=== PATIENT | female | born 1990 | race Caucasian/White ===

== ENCOUNTER 2019-07-03 12:50 | Day surgery (SDC) | payer SELFPAY ==
[2019-06-30 18:06] VITALS: BMI 22.3
[2019-06-30 18:10] VITALS: BMI 22.3
[2019-07-03] VITALS (8 sets, daily range): BP systolic 110–136; BP diastolic 62–84; PULSE 86–109; RESP 10–20; TEMP 36.3–36.9; O2SAT 95–100
[2019-07-03 13:21] LABS: OR HCG Qualitative Urine Negative (Negative)
[2019-07-03] MEDS: sodium chloride 0.9% 1,000 ML 30 ML IV (13:29)
--- NOTE | 2019-07-03 13:34 | ANES.PREANES ---
Pre-Anesthetic Assessment Pre-Anesthetic Assessment: Height/Weight: Height 1.8 m Weight 72.575 kg Temp Resp BP Pulse Ox 98.2 F 18 110/62 100 07/03/19 13:19 07/03/19 13:19 07/03/19 13:19 07/03/19 13:19 Proposed Procedure: Operation Date: 07/03/19 14:20 Proposed Procedures p Laparoscopic Cholecystectomy Poss Open(Not Applicable) - Caesar Li MD Familial anesthetic complications: None Was Beta Taty taken within 24 hours: N/A Last intake: Intake Last Liquid Date 07/02/19 Last Liquid Time 23:00 Last Solid Date 07/02/19 Last Solid Time 23:00 Social: Social History: Tobacco (1 ppd) and No alcohol Exam: Pre-Anes Outpt Exam: alert, oriented x 3, clear to auscultation bilaterally and regular rate & rhythm Airway: Submandibular: WNL Cervical ROM: WNL MP: 1 Dentition: Chipped (multiple chipped) Pulmonary: Pulmonary: URI (cold last week) CV/HEM: CV/HEM: None reported : : None reported Hepatic: Hepatic: None reported GI: GI: GERD Metabolic: Metabolic: None reported Musc/skel: Musc/skel: Scoliosis Neuropsych: Neuropsych: None reported Anesthetic Plan: ASA status: II Anesthesia: General Risk of > 500 ml blood loss (7ml/kg in children): No Meds/Allergies Current Medications: Current Medications Generic Name Dose Route Start Last Admin Trade Name Freq PRN Reason Stop Dose Admin Sodium Chloride 1,000 mls @ 30 ml s/hr 07/03/19 12:45 07/03/19 13:29 Sodium Chloride 0.9% IV 30 mls/hr .Q24H VICTOR HUGO Administration Data Anesthesia Labs: Other Labs: Laboratory Results - last 48 hr 07/03/19 13:18 Urine HCG, Qual Negative Cardiac Studies: No Data to Display
[2019-07-03] MEDS: clindamycin 600 MG/50 ML PREMIX 100 MG IV (14:55)
[2019-07-03] MEDS: lidocaine 2% INJ 20 mL INJECTION (15:00)
--- NOTE | 2019-07-03 15:50 | PM.OP ---
Operative Report Post-Operative Note: Date of procedure: 07/04/19 Preop Diagnosis: Symptomatic cholelithiasis Post-op diagnosis: same Post-op Findings: Chronic calculus cholecystitis Procedure Done: Laparoscopic cholecystectomy Specimens removed/disposition: Gallbladder and contents Surgeon: Caesar Li Tool Turret Lathe Set Up Operator: Merlyn Alegria Anesthesia: general and other (MOUNA Maria) Estimated blood loss (mL): 5 Urine output (mL): 0 Condition: stable Disposition: same day Operative Report: Brief History: This is a pleasant 28 years old female patient presented as a referral to my office with symptomatic cholelithiasis. Plan of care; After thorough history physical examination and reviewing the chart ,I counseled the patient for laparoscopic cholecystectomy possible open, indications risks including but not limited injury to the common bile duct and other viscera.benefits and alternatives all discussed with the patient, and she did agree to proceed. All questions have been answered and all concerns have been addressed to patient's satisfaction. Informed consent per chart Procedure: Patient was identified in the holding area and taken back to the operative suite, placed in supine position intubated by anesthesia . Time-out was done verifying the patient's name/date of /planned procedure and destination after the procedure, all were in agreement. SCDs confirmed to be functioning, preoperative antibiotics administered per protocol, and beta pretty protocol was confirmed. Patient was appropriately secured to the table, footboard was applied to the OR table, before prep and drape anesthesia was asked to tilt the table back and forth to make sure that the patient is appropriately secured and she was. Prep and drape of the abdomen was done under the usual sterile technique, followed by that supraumbilical skin incision,skin incision was done by a 15 blade knife, and stay sutures were applied to the fascia and Harvey trocar technique was used to enter the abdominal without injuring any abdominal viscera, started by low flow gas insufflation followed by a high flow, started with a 10 mm laparoscope and under direct vision there was no evidence of any injuries, the scope then switched to a 30? ,10 millimeter scope and under direct visualization 5 millimeter trocar was inserted in the epigastric region followed by two 5 mm trocars were inserted in the right upper quadrant that was done after injection of local lidocaine 2% at all incision sites. Gallbladder showed chronic calculus cholecystitis &with adhesions Patient was then positioned in the head up and tilted to the left dissection started by taking adhesions down using [place] forceps with heat, continued dissection until I identified the critical view of the cystic duct and cystic artery where seen connected to the gallbladder. Clips were applied on the cystic duct towards the common bile duct 1 towards the gallbladder then divided is in sharp scissors, 2 clips were then applied onto the cystic artery and 1 towards the gallbladder and divided by sharp scissors, as the cystic duct stump was enlarged I elected to apply a loop PDS in addition to the surgical clip for extra security. Dissection was then carried along of the gallbladder from the gallbladder fossa using cautery as well as sharp dissection with heat energy. The gallbladder then was dissected out from the gallbladder fossa totally , cholecystectomy was then achieved and was placed in an Endo Catch bag and then retrieved from the Harvey trocar site under direct visualization using a 5 mm 30? scope through the epigastric trocar, specimen was then passed to the circulating nurse to go for permanent pathology,irrigation and hemostasis was done to the gallbladder fossa after hemostasis was secured, final survey laparoscopy was done that showed no injuries.Suction irrigation was obtained The supraumbilical fascial defect was then closed using interrupted Vicryl sutures using a fascial closure device ;Jose Antonio Serrano under direct visualization Gas was allowed to deflate,Trocars were then taken out under direct vision there was no evidence of bleeding Specimen was passed to the circulating nurse for permanent pathology. No drains were placed and the supraumbilical incision as well as all trocar sites were closed by by 4-0 Monocryl to approximate the skin edges of the supraumbilical incision, dressing was applied in the form of Dermabond and the patient patient got extubated and was taken to recovery area in a stable condition. Count of sponges, needles and instruments were completed at the end of the procedure I was present for the whole entire procedure. Coding Level of Care Code Acute River Captain for Sarah Walsh
--- NOTE | 2019-07-03 16:10 | SUR.PHASEI ---
1602 PATIENT TO PACU FROM OR AT THIS TIME [facility]IA [employer]. RR EVEN AND UNLABORED. PLACED ON SIMPLE MASK AT 8L. PATIENT RESPONSIVE TO VERBAL STIMULI. 4 STABS TO ABDOMEN, CDI, CLOSED WITH EXOFIN.
--- NOTE | 2019-07-03 16:31 | SUR.PHASEI ---
1622 PATIENT TO OPS VIA GURNEY. A/OX3. DROWSY. RR EVEN AND UNLABORED.
--- NOTE | 2019-07-25 16:11 | PM.HPUD ---
H&P update H&P Update: DATE OF SURGERY/PROCEDURE: 07/25/19 DATE H&P PERFORMED: 06/08/19 H&P UPDATE INFORMATION: H&P completed within last 30 days and No changes to prior documentation PREOP DIAGNOSIS: Symptomtic Cholelithiasis PLANNED PROCEDURE: Operation Date: 07/03/19 14:20 Proposed Procedures p Laparoscopic Cholecystectomy Poss Open(Not Applicable) - Caesar Li MD Full H&P Perinent History: Medical/Surgical History: Medical History (Updated 07/19/19 @ 00:00 by ) Liver laceration, grade II, with open wound into cavity (Acute) Conservative measures were successful H&H stable Plan to discharge patient home today with specific education materials given to the patient and instructions. Family History: Family History (Updated 07/13/19 @ 15:59 by Gemma Johnson RN) Denies family history of Anesthesia complication Bleeding disorder Social History: Social History Smoking and tobacco status: current every day smoker cigarettes Packs smoked per day: 1 Second hand smoke exposure: Yes Alcohol intake: never Adopted: No Caregiver/support person: Yes Lives independently: Yes Household members: family Housing: Apartment Marital status: Single Number of children: 1 Highest education level completed: High School Graduate service: No Current occupational status: employed Current occupation: [employer] Current occupational exposures/hazards: No Pets and animals: No History of recent travel: No Leisure activites: exercise Sexually active: Yes Current gender identity: Female Lakeisha/Congregational: Hindu Special lakeisha needs: No Agree to transfusion: No Financial difficulty paying for basics: Decline to Answer
== END 2019-07-03 17:05 | disposition home or self-care (01) ==
PROVIDERS: Visit Provider Surgery
PROC: 0FT44ZZ Resection of Gallbladder, Percutaneous Endoscopic Approach (ICD-10-PCS; CPT 47562; principal; 2019-07-03 14:10)
DX: K80.10 Calculus of gallbladder with chronic cholecystitis without obstruction (principal); F17.210 Nicotine dependence, cigarettes, uncomplicated; Z82.49 Family history of ischemic heart disease and other diseases of the circulatory system; Z83.3 Family history of diabetes mellitus
CPT/HCPCS: 47562; 12345; 84703; 88304; J1100; J1885; J2001; J2405; J2704; J2710; J3010; J3490; J7030

== ENCOUNTER 2019-07-04 01:35 | Inpatient (IN) | payer SELFPAY ==
[2019-07-04] VITALS (31 sets, daily range): BP systolic 89–142; BP diastolic 57–96; PULSE 83–142; RESP 15–47; TEMP 36.4–37.5; O2SAT 96–99; BMI 22.3
--- NOTE | 2019-07-04 01:44 | ED_ITS ---
Entered by Analilia Allan, acting as scribe for Karrie Lebron MD Jul 04, 2019 01:35 HPI - Abdominal Pain General: Chief Complaint: Nausea/Vomiting/Diarrhea Stated Complaint: POST GALLBLADDER SURGERY Time Seen by Provider: 07/04/19 01:37 Source: family and EMS Mode of arrival: EMS Limitations: no limitations History of Present Illness: HPI narrative: 28 yo f came to the er by ems for post surgery complications. Onset was yesterday. Pt states that she had her galbladder taken out 07/03/19 by . Pt since the surgery has been nausea and vomiting. Pt states that she is in alot of pain. MD elicited complaint: abdominal pain Onset (ago): day(s) (today) Pain Consistency: constant Location: LUQ, RUQ, RLQ and LLQ Severity: moderate Quality: other (pain) Radiation: none Migration to: no migration Exacerbating factors: nothing Relieving factors: nothing Associated Symptoms: Reports vomiting; Denies chills, diarrhea and fever(s) Related Data: Patient : No Review of Systems Const: Reports: fatigue; Denies: fever or chills Eyes: Denies: change in vision ENMT: Denies: throat pain or mouth pain Card: Denies: chest pain Resp: Denies: shortness of breath GI: Reports: abdominal pain and vomiting; Denies: diarrhea : Denies: difficulty urinating Musc: Denies: back pain or joint pain Skin/Breast: Denies: rash Neuro: Denies: headache Psych: Denies: depression Endo: Denies: excessive urination Travon/Lymph: Denies: easy bruising All/Imm: Denies: hives PFSH ED PFSH: Statuses (acute, chronic, etc) shown below reflect problem list status as previously entered and may not be historically accurate Medical History Liver laceration, grade II, with open wound into cavity (Acute) Social History Smoking and tobacco status: current every day smoker cigarettes Packs smoked per day: 1 Physical Exam Const: OTHER: in moderate distress, pale HENMT: COMMON NORMALS: normocephalic and external nose normal HEAD & SCALP: normocephalic NOSE: external nose normal and no nasal discharge (nasal dischage) Eye: COMMON NORMALS: PERRL PUPIL: Yes PERRL Neck/C-Spine: COMMON NORMALS: full ROM and no lymphadenopathy Chest: COMMONS NORMALS: inspection of chest normal Resp: COMMON NORMALS: normal respiratory effort and clear to auscultation bilaterally AUSCULTATION: clear to auscultation bilaterally Cardio: COMMON NORMALS: regular rhythm; negative for regular rate (tachycardic) RATE: abnormal rate (tachycardic) RHYTHM: regular rhythm GI: COMMON NORMALS: soft to palpation PALPATION: Yes soft Extremity: COMMON NORMALS: normal to inspection, full ROM and normal capillary refill Psych: COMMON NORMALS: mental status grossly normal and cooperative Skin: COMMON NORMALS: no rashes or lesions noted GENERAL SKIN EXAM: no rashes or lesions noted OTHER: pale Course Consultations: Consultation #1: came to see pt Time: 03:39 Vital Signs: Vital signs: Vital Signs Temperature 98.3 F 07/04/19 04:48 Pulse Rate 116 H 07/04/19 04:48 Respiratory Rate 19 H 07/04/19 04:48 Blood Pressure 118/72 07/04/19 04:33 Pulse Oximetry 98 07/04/19 04:48 MDM - Abdominal Pain MDM Narrative: Medical decision making narrative: Patient presents here with abdominal pain is found to have hematoma with a possible liver laceration. Patient's blood pressure and heart rate here of stabilized. Patient was given blood products in the ED. Spoke to Dr. Whitman who is came and saw the patient will admit to the ICU. Lab Data: Labs: Lab Results 07/04/19 07/04/19 07/04/19 Range/Units 02:15 02:15 02:15 WBC 22.6 H (4.0-10.0) 10^3/ uL RBC 2.48 L (4.1-5.3) 10^6/u L Hgb 7.6 L (11.5-15.3) g/dL Hct 24.1 L (37.0-47.0) % MCV 97.2 (81-99) fL MCH 30.6 (28.0-34.0) pg MCHC 31.5 (30.0-36.0) g/dL RDW 13.1 (12.1-15.1) % Plt Count 297 (130-400) 10^3/c mm MPV 10.3 (7.4-10.4) fL Neut % (Auto) 85.8 % Lymph % (Auto) 8.7 % Clayton % (Auto) 4.2 % Eos % (Auto) 0.0 % Baso % (Auto) 0.1 % Neut # (Auto) 19.4 H (1.8-7.7) 10^3/u L Lymph # (Auto) 2.0 (0.8-4.8) 10^3/u L Clayton # (Auto) 1.0 H (0.2-0.9) 10^3/u L Eos # (Auto) 0.0 (0.0-0.8) 10^3/u L Baso # (Auto) 0.0 (0.0-0.1) 10^3/u L Nucleated RBC % (a uto) 0 % Nucleated RBCs # 0.0 /100WBC PT 17.20 H (10.5-13.3) SECO NDS INR 1.35 H (0.8-1.2) Sodium 133 L (136-145) mmol/L Potassium 4.2 (3.5-5.1) mmol/L Chloride 101 (98-107) mmol/L Carbon Dioxide 16 L (22-29) mmol/L Anion Gap 20.2 H (5-19) BUN 13 (6-20) mg/dL Creatinine 1.3 H (0.5-0.9) mg/dL GFR Calculation 49.1 L (90-130) mL/min Glucose 324 H (74-109) mg/dL Calcium 8.0 L (8.6-10.0) mg/Dl Total Bilirubin 0.2 (0.15-1.2) mg/dL AST 28 (0-32) U/L ALT 102 H (0-33) U/L Alkaline Phosphata se 57 (35-105) IU/L Total Protein 4.8 L (6.6-8.7) g/dL Albumin 3.2 L (3.5-5.2) g/dL Globulin 1.6 (1.3-4.6) g/dL Lipase 7 L (13-60) U/L Blood Type Antibody Screen Crossmatch 07/04/19 Range/Units 02:55 WBC (4.0-10.0) 10^3/ uL RBC (4.1-5.3) 10^6/u L Hgb (11.5-15.3) g/dL Hct (37.0-47.0) % MCV (81-99) fL MCH (28.0-34.0) pg MCHC (30.0-36.0) g/dL RDW (12.1-15.1) % Plt Count (130-400) 10^3/c mm MPV (7.4-10.4) fL Neut % (Auto) % Lymph % (Auto) % Clayton % (Auto) % Eos % (Auto) % Baso % (Auto) % Neut # (Auto) (1.8-7.7) 10^3/u L Lymph # (Auto) (0.8-4.8) 10^3/u L Clayton # (Auto) (0.2-0.9) 10^3/u L Eos # (Auto) (0.0-0.8) 10^3/u L Baso # (Auto) (0.0-0.1) 10^3/u L Nucleated RBC % (a uto) % Nucleated RBCs # /100WBC PT (10.5-13.3) SECO NDS INR (0.8-1.2) Sodium (136-145) mmol/L Potassium (3.5-5.1) mmol/L Chloride (98-107) mmol/L Carbon Dioxide (22-29) mmol/L Anion Gap (5-19) BUN (6-20) mg/dL Creatinine (0.5-0.9) mg/dL GFR Calculation (90-130) mL/min Glucose (74-109) mg/dL Calcium (8.6-10.0) mg/Dl Total Bilirubin (0.15-1.2) mg/dL AST (0-32) U/L ALT (0-33) U/L Alkaline Phosphata se (35-105) IU/L Total Protein (6.6-8.7) g/dL Albumin (3.5-5.2) g/dL Globulin (1.3-4.6) g/dL Lipase (13-60) U/L Blood Type O Positive Antibody Screen Negative Crossmatch See Detail Imaging Data ^: CT Abd/Pel: Radiologist's impression: RE INFORMATION: Exam: CT Abdomen And Pelvis With Contrast Exam date and time: 07/04/2019 1:54 AM Age: 28 years old Clinical indication: Abdominal pain; Localized; Right upper quadrant (ruq); Prior surgery; Surgery date: Post-operative (0-2 days); Surgery type: Gb surgery <24hrs ago TECHNIQUE: Imaging protocol: Computed tomography of the abdomen and pelvis with intravenous contrast. Total DLP: 792.57 mGy-cm Radiation optimization: All CT scans at this facility use at least one of these dose optimization techniques: automated exposure control; mA and/or kV adjustment per patient size (includes targeted exams where dose is matched to clinical indication); or iterative reconstruction. Contrast material: OMNMI 300; Contrast volume: 95 ml; Contrast route: IV; COMPARISON: CT abdomen pelvis w con* [id number] 02/21/2015 10:17 PM FINDINGS: Liver: There is a wedge-shaped low density through the lower right hepatic lobe suspicious for laceration/posttraumatic defect. Gallbladder and bile ducts: Changes of cholecystectomy are noted. Relatively large hematoma suggested at the gallbladder fossa and relatively large free fluid likely representing hemorrhage noted through the abdomen. No evident contrast extravasation Pancreas: Normal. No ductal dilation. Spleen: Normal. No splenomegaly. Adrenals: Normal. No mass. Kidneys and ureters: Normal. No hydronephrosis. Stomach and bowel: Short-segment intussusception left upper quadrant small bowel. Moderate gastric fluid. Appendix: No evidence of appendicitis. Intraperitoneal space: Free intraperitoneal air can be seen as a normal finding in setting of recent surgery less than 24 hours ago. Vasculature: Unremarkable. No abdominal aortic aneurysm. Lymph nodes: Unremarkable. No enlarged lymph nodes. Bladder: Unremarkable as visualized. Reproductive: Unremarkable as visualized. Bones/joints: Unremarkable. No acute fracture. Soft tissues: Unremarkable. CT/CT abdomen pelvis w con* [id number] IMPRESSION: Prominent right upper quadrant hematoma in relatively large free fluid likely representing hemorrhage related fluid within the abdomen and pelvis. Findings are suspected to arise from grade 2 injury at the lower right hepatic tip. THIS REPORT CONTAINS FINDINGS THAT MAY BE CRITICAL TO PATIENT CARE. The findings were verbally communicated via telephone conference with Karrie Lebron at 3:08 AM ASSISTANT SPA MANAGER on 07/04/2019. The findings were acknowledged and understood. Critical Care Time Critical Care Time: Critical Care Time: Yes Total Critical Care Time: 36 Attestation: Critical care time is 36 minutes. Patient had a postop hemorrhage requiring blood products and rechecks of cardiac output and blood pressure. Consult was made to surgery Dr. Harding Discharge Plan Discharge Patient Disposition: Admitted As Inpatient Admit Provider: Caesar Li Clinical Impression: Liver laceration, grade II, with open wound into cavity Condition: Stable Coding Level of Care Code ED Cellophane Wrapping Examiner for Chg Fwd Exam Problem Focused The documentation recorded by the Jerrell gracia Stephanie Lyn, accurately reflects the service I personally performed and the decisions made by me, Karrie Lebron MD Jul 04, 2019 01:35
[2019-07-04] MEDS: sodium chloride 0.9% 1,000 ML 999 ML IV ×2 (01:53→02:07)
--- NOTE | 2019-07-04 01:54 | PC.NURSE ---
Pt presents with nausea, vomiting and diarrhea since this AM after galbladder surgery. Pt is also diaphoretic and is very lethargic. NAD, A&O x 4, patient is cooperative.
[2019-07-04] MEDS: ondansetron 2 mg/ML SDV 2 mL 4 MG IVP (02:26)
[2019-07-04] MEDS: iohexol 300 mg/mL 100 mL Btl IV (02:41)
[2019-07-04 02:52] LABS: Alanine Aminotransferase 102 U/L (0-33); Albumin Level 3.2 g/dL (3.5-5.2); Alkaline Phosphatase 57 IU/L (35-105); Anion Gap 20.2 (5-19); Aspartate Amino Transferase 28 U/L (0-32); Blood Urea Nitrogen 13 mg/dL (6-20); Carbon Dioxide 16 mmol/L (22-29); Chloride 101 mmol/L (98-107); Globulin 1.6 g/dL (1.3-4.6); Glomerular Filtration Rate 49.1 mL/min (90-130); Glucose 324 mg/dL (74-109); Lipase 7 U/L (13-60); Potassium 4.2 mmol/L (3.5-5.1); Sodium 133 mmol/L (136-145); Total Bilirubin 0.2 mg/dL (0.15-1.2); Total Protein 4.8 g/dL (6.6-8.7)
[2019-07-04 03:06] LABS: Basophils % 0.1 %; Hematocrit 24.1 % (37.0-47.0); Hemoglobin 7.6 g/dL (11.5-15.3); Lymphocytes % 8.7 %; Mean Corpuscular HGB Conc 31.5 g/dL (30.0-36.0); Mean Corpuscular Hemoglobin 30.6 pg (28.0-34.0); Mean Corpuscular Volume 97.2 fL (81-99); Mean Platelet Volume 10.3 fL (7.4-10.4); Monocytes % 4.2 %; Neutrophils # 19.4 10^3/uL (1.8-7.7); Neutrophils % 85.8 %; Nucleated Red Blood Cells % 0 %; Platelet Count 297 10^3/cmm (130-400); Red Blood Count 2.48 10^6/uL (4.1-5.3); Red Cell Distribution Width 13.1 % (12.1-15.1); White Blood Count 22.6 10^3/uL (4.0-10.0)
[2019-07-04 03:46] LABS: INR 1.35 (0.8-1.2)
--- NOTE | 2019-07-04 03:51 | PM.HP ---
Providers/Chief Complaint Admitting Physician: JESSIE Alexis Chief Complaint: POST GALLBLADDER SURGERY History of Present Illness Abby Bernal is a pleaent 28 year old female patient undergone an uneventful laparoscopic cholecystectomy July 03, 2019 and was discharged home without complications, apparently the patient started to develop dizziness at home and started to get worsening episodes of sweating, mom brought the patient to the ER for further evaluation, patient was found to have tachycardia and hypotension 90s over 60s with heart rate in 130s, and emergency CT scan was done that showed grade 2 liver laceration without active bleeding yet there is a hematoma at the perihepatic region and some residual free fluid in the pelvis, I was contacted by Dr. Lebron for potential evaluation and intervention. Patient was seen and evaluated in the emergency department early childhood education specialist. Review of Systems Const: Reports: malaise; Denies: fever, chills or body aches Card: Denies: chest pain Resp: Denies: shortness of breath GI: Denies: abdominal pain, nausea, vomiting, difficulty swallowing, diarrhea, constipation or blood in stool Neuro: Denies: headache Psych: Denies: anxiety or depression Medications/Allergies Allergies Allergy/AdvReac Type Severity Reaction Status Date / Time azithromycin Allergy ALGY-Hives Verified 06/30/19 17:58 ciprofloxacin [From Cipro] Allergy htn and Verified 06/30/19 17:59 blisters codeine Allergy ADR-Vomitin Verified 06/30/19 17:58 g Penicillins Allergy ALGY-Hives Verified 06/30/19 17:56 PFSH Acute PFSH: Statuses (acute, chronic, etc) shown below reflect problem list status as previously entered and may not be historically accurate Medical History Liver laceration, grade II, with open wound into cavity (Acute) Social History Smoking and tobacco status: current every day smoker cigarettes Packs smoked per day: 1 Vitals/I&O/Wt Last Vital Signs Temp 97.6 F 07/04/19 01:39 Pulse 128 H 07/04/19 02:00 Resp 18 07/04/19 02:00 BP 89/65 07/04/19 02:00 Pulse Ox 98 07/04/19 02:00 Weight last 48 hrs Weight 160 lb Physical Exam Const: COMMON NORMALS: no apparent distress and oriented x3 GENERAL APPEARANCE: cooperative ORIENTATION/CONSCIOUSNESS: Yes awake, Yes oriented to person, Yes oriented to place and Yes oriented to time HENMT: COMMON NORMALS: normocephalic HEAD & SCALP: normocephalic Eye: COMMON NORMALS: PERRL and no scleral icterus PUPIL: Yes PERRL Lymph: LYMPHATIC: no lymphadenopathy noted Chest: COMMONS NORMALS: inspection of chest normal Resp: COMMON NORMALS: normal respiratory effort and clear to auscultation bilaterally AUSCULTATION: clear to auscultation bilaterally Cardio: COMMON NORMALS: S1 normal heart sound and S2 normal heart sound; negative for no murmurs HEART SOUNDS: S1 normal and S2 normal GI: COMMON NORMALS: soft to palpation; negative for no hepatosplenomegaly INSPECTION: Yes normal to inspection PALPATION: Yes soft, No firm, Yes tender (Only at the incision sites), No guarding, No rigid and No no hepatosplenomegaly Neuro: COMMON NORMALS: oriented x3 SENSORIUM/ORIENTATION: Yes oriented to person, Yes oriented to place and Yes oriented to time Psych: COMMON NORMALS: mental status grossly normal Skin: COMMON NORMALS: no rashes or lesions noted GENERAL SKIN EXAM: no rashes or lesions noted A&P Assessment and plan (1) Liver laceration, grade II, with open wound into cavity: After thorough history physical examination and reviewing the chart and images with my personal interpretation, will plan to conservatively treat the patient at this point by giving her blood transfusion 2 units. Admission to the ICU with the continuous cardiac monitoring Empiric coverage with clindamycin IV 600 every 8 hours Repeated physical examination H&H every 8 hours I did discuss in length with the patient and her mother about conservative measures at this point that if the patient did not respond likely will benefit from surgical intervention. Complete bedrest. Strict I's and O's I did discuss in length as well with Dr. Leos our radiologist the images of the CT scan and she did agree that there is no active bleeding or extravasation. Status: Acute Code(s): S36.115A - Moderate laceration of liver, initial encounter Attestations Medical Necessity Statement*: Medical necessity care is expected to cross 2 midnights Coding Level of Care Code Acute Billing Typist for Chg Fwd History Problem Focused Exam Problem Focused Medical Decision Making Moderate Complexity Diagnoses Liver laceration, grade II, with open wound into cavity S36.115A Time Spent (min) 25
[2019-07-04] MEDS: clindamycin 600 MG/50 ML PREMIX 100 MG IV ×3 (04:23→23:57)
[2019-07-04] MEDS: morphine 4 mg/mL SDV 1 mL IVP (04:42)
[2019-07-04] MEDS: sodium chloride 0.9% 1,000 ML 100 ML IV ×2 (12:23→22:50)
[2019-07-04] MEDS: sodium chloride 0.9% 100 ML 50 ML (12:24)
[2019-07-04 15:55] LABS: Basophils % 0.2 %; Hematocrit 26.3 % (37.0-47.0); Hemoglobin 8.9 g/dL (11.5-15.3); Lymphocytes # 2.8 10^3/uL (0.8-4.8); Lymphocytes % 23.5 %; Mean Corpuscular HGB Conc 33.8 g/dL (30.0-36.0); Mean Corpuscular Hemoglobin 31.3 pg (28.0-34.0); Mean Corpuscular Volume 92.6 fL (81-99); Monocytes # 1.1 10^3/uL (0.2-0.9); Monocytes % 9.1 %; Neutrophils # 8.1 10^3/uL (1.8-7.7); Neutrophils % 66.8 %; Nucleated Red Blood Cells % 0 %; Platelet Count 189 10^3/cmm (130-400); Red Blood Count 2.84 10^6/uL (4.1-5.3); White Blood Count 12.1 10^3/uL (4.0-10.0)
[2019-07-04 16:01] LABS: Partial Thromboplastin Time 27.9 SECONDS (23.9-36.7)
[2019-07-04 16:02] LABS: Fibrinogen 227 mg/dL (184-529)
[2019-07-04 16:15] LABS: Platelet Count 189 10^3/cmm (130-400)
[2019-07-04] MEDS: HYDROcodone-acetaminophen 5-325 mg Tablet 1 TAB PO (16:17)
--- NOTE | 2019-07-04 16:25 | PC.CHAP ---
Pastoral Care Encounter/Spiritual Assessment Type of Contact [] Declined brownfield redevelopment site manager visit [x] Patient/Family/Request visit [] Outpatient visit [] Follow-up visit [] Physician referral [] Code/Alert [x] Routine visit [] Staff referral [] Actively dying [] Patient sleeping [] Family support [] [] Out of room [] Palliative care [] [] Receiving care in room [] Pre-surgical visit [] Trauma [] Long length of stay [x] ICU visit [] Other: Relational/Emotional Strength [x] Patient feels connected with others/family/visitors/staff [] Distress [] Loneliness/isolation [] Abandonment Spirituality of Patient [x] Person of [place] [x] Attends Taoist of their [place] [x] Believes in Prayer [x] Reads Bible or Caodaism materials [] There are Spiritual issues to be addressed Staff Antisubmarine Officer Interventions [x] Prayer [x] Active listening [x] Non-anxious presence [x] Spiritual/emotional support [] Crisis/trauma care [x] Spiritual counseling [] Bereavement support [] Provided bereavement packet [] Provided Bible/devotional materials [] Provided toy/stuffed animal, coloring book to patient or family member [x] Completed spiritual assessment [] Provided Communion [x] Anointing/[place] [] Salvation [] Other: Impact on Illness or Injury [] Angry [] Fearful [x] Anxious [] Often cries [x] Exhaustion [] Unable to work [] Unable to attend tenriism [] Unable to walk/stand [] Unable to read [] Unable to drive [] Unable to eat/drink [] Unable to sleep [] Unable to be with family [] Other: Summary Talk with patient and two family members. Prayer was good with the whole family Time spent with patient 10 min.
--- NOTE | 2019-07-04 20:23 | PC.NURSE ---
Log rolled patient and straightened linens under patient. No redness or breakdown noted. Instructed patient to call for assistance when needing to move and splint with pillow to abdomen.
[2019-07-04] MEDS: sodium chloride 0.9% 100 ML (20:31)
[2019-07-05] VITALS (17 sets, daily range): BP systolic 101–130; BP diastolic 64–91; PULSE 82–118; RESP 14–29; TEMP 36.5–37.3; O2SAT 90–98
[2019-07-05 03:51] LABS: Alanine Aminotransferase 65 U/L (0-33); Alkaline Phosphatase 52 IU/L (35-105); Anion Gap 12.5 (5-19); Aspartate Amino Transferase 20 U/L (0-32); Blood Urea Nitrogen 8 mg/dL (6-20); Calcium 7.7 mg/Dl (8.6-10.0); Carbon Dioxide 21 mmol/L (22-29); Chloride 108 mmol/L (98-107); Globulin 1.9 g/dL (1.3-4.6); Glomerular Filtration Rate 119.9 mL/min (90-130); Glucose 93 mg/dL (74-109); Potassium 3.5 mmol/L (3.5-5.1); Sodium 138 mmol/L (136-145); Total Bilirubin 0.4 mg/dL (0.15-1.2); Total Protein 4.9 g/dL (6.6-8.7)
[2019-07-05 04:02] LABS: Basophils % 0.3 %; Eosinophils % 0.1 %; Hemoglobin 7.9 g/dL (11.5-15.3); Lymphocytes # 2.4 10^3/uL (0.8-4.8); Mean Corpuscular HGB Conc 34.3 g/dL (30.0-36.0); Mean Corpuscular Hemoglobin 31.2 pg (28.0-34.0); Mean Corpuscular Volume 90.9 fL (81-99); Mean Platelet Volume 9.9 fL (7.4-10.4); Monocytes # 0.7 10^3/uL (0.2-0.9); Monocytes % 9.4 %; Neutrophils # 4.1 10^3/uL (1.8-7.7); Neutrophils % 56.9 %; Nucleated Red Blood Cells % 0 %; Platelet Count 153 10^3/cmm (130-400); Red Blood Count 2.53 10^6/uL (4.1-5.3); White Blood Count 7.2 10^3/uL (4.0-10.0)
[2019-07-05] MEDS: HYDROcodone-acetaminophen 5-325 mg Tablet 1 TAB PO ×3 (04:16→20:38)
--- NOTE | 2019-07-05 05:30 | PC.NURSE ---
Notified Dr. Li of patients current H&H of 7.0 & 23.0. Notified of current V/S Heart rate 85, blood pressure 110/72, resp rate 12, O2 sat 98%. Notified that we had to place patient on 2L NC because her O2 sats had decreased to 2L NC. Notified that patients abdomen remains soft and does no have any increased distention. Order given to recheck H&H in 2 hours.
--- NOTE | 2019-07-05 06:27 | P.PN_ITS ---
Subjective Subjective: Interval history: Overall patient feels better Stable H&H Vitals/I&O/Wt Last Vital Signs Temp 98.6 F 07/05/19 04:00 Pulse 97 07/05/19 06:00 Resp 14 07/05/19 06:00 BP 107/65 07/05/19 06:00 Pulse Ox 98 07/05/19 06:00 07/04/19 07/04/19 07/05/19 14:59 22:59 06:59 Intake Total 700 / 700 1900 / 2600 663.333 / 3263.333 Output Total 800 / 800 700 / 1500 2000 / 3500 Balance -100 / -100 1200 / 1100 -1336.667 / -236.667 Weight last 48 hrs Weight 182 lb 1.6 oz Weight 160 lb Physical Exam Const: COMMON NORMALS: no apparent distress and oriented x3 GENERAL APPEARANCE: cooperative ORIENTATION/CONSCIOUSNESS: Yes awake, Yes oriented to person, Yes oriented to place and Yes oriented to time HENMT: COMMON NORMALS: normocephalic HEAD & SCALP: normocephalic Eye: COMMON NORMALS: PERRL and no scleral icterus PUPIL: Yes PERRL Lymph: LYMPHATIC: no lymphadenopathy noted Chest: COMMONS NORMALS: inspection of chest normal Resp: COMMON NORMALS: normal respiratory effort and clear to auscultation bilaterally AUSCULTATION: clear to auscultation bilaterally Cardio: COMMON NORMALS: S1 normal heart sound and S2 normal heart sound; negative for no murmurs HEART SOUNDS: S1 normal and S2 normal GI: COMMON NORMALS: soft to palpation; negative for no hepatosplenomegaly INSPECTION: Yes normal to inspection PALPATION: Yes soft, No firm, Yes tender (No signs of peritonitis or guarding), No guarding, No rigid and No no hepatosplenomegaly Neuro: COMMON NORMALS: oriented x3 SENSORIUM/ORIENTATION: Yes oriented to person, Yes oriented to place and Yes oriented to time Psych: COMMON NORMALS: mental status grossly normal Skin: COMMON NORMALS: no rashes or lesions noted GENERAL SKIN EXAM: no rashes or lesions noted A&P Assessment and plan (1) Liver laceration, grade II, with open wound into cavity: Continue close observation in the ICU Continuous speech and language clinician Repeat H&H at 7 AM Will transfuse 2 units of FFP N.p.o. for now Repeated physical examination Continue bedrest Continue Nelson catheter care Continue incentive spirometer I do believe at this point patient continues to be appropriate and responding well to conservative measures, unless there is deterioration of vital signs, I would hold on any repeat of images likely it will be if any CT scan of the abdomen and pelvis with IV and oral contrast Plan of care has been discussed with the patient and her mother and both agreed on conservative measures Status: Acute Code(s): S36.115A - Moderate laceration of liver, initial encounter Attestations Medical Necessity Statement*: Medical necessity care is expected to cross 2 midnights Critical Care Time: Critical care time: less than 30 mins Coding Level of Care Code Acute Deputy Court Clerk for Chg Fwd History Expanded Problem Focused Exam Problem Focused Medical Decision Making Moderate Complexity Diagnoses Liver laceration, grade II, with open wound into cavity S36.115A Time Spent (min) 20
[2019-07-05] MEDS: clindamycin 600 MG/50 ML PREMIX 100 MG IV (07:44)
[2019-07-05 08:07] LABS: Hematocrit 21.8 % (37.0-47.0); Hemoglobin 7.5 g/dL (11.5-15.3)
[2019-07-05] MEDS: sodium chloride 0.9% 1,000 ML 100 ML IV ×2 (09:18→20:35)
--- NOTE | 2019-07-05 12:48 | PC.NURSE ---
FFP administered. Issues with system would not allow product to be verified per computer. IT notified. This nurse and Allegra RN verified via 2 nurse at bedside prior to administration. Vitals could not be put into computer due to verification time after administration time per computer. Please see paper documentation of vital signs.
--- NOTE | 2019-07-05 14:59 | PC.CHAP ---
Pastoral Care Encounter/Spiritual Assessment Type of Contact [] Declined ginner visit [] Patient/Family/Request visit [] Outpatient visit [] Follow-up visit [] Physician referral [] Code/Alert [x] Routine visit [] Staff referral [] Actively dying [] Patient sleeping [] Family support [] [] Out of room [] Palliative care [] [] Receiving care in room [] Pre-surgical visit [] Trauma [] Long length of stay [x] ICU visit [] Other: Relational/Emotional Strength [x] Patient feels connected with others/family/visitors/staff [] Distress [] Loneliness/isolation [] Abandonment Spirituality of Patient [] Person of Lakeisha [] Attends Temple of their [place] [] Believes in Prayer [] Reads Bible or Taoism materials [x] There are Spiritual issues to be addressed Director Software Interventions [] Prayer [x] Active listening [x] Non-anxious presence [] Spiritual/emotional support [] Crisis/trauma care [] Spiritual counseling [] Bereavement support [] Provided bereavement packet [] Provided Bible/devotional materials [] Provided toy/stuffed animal, coloring book to patient or family member [x] Completed spiritual assessment [] Provided Communion [] Anointing/Independence [] Salvation [] Other: Impact on Illness or Injury [] Angry [] Fearful [] Anxious [] Often cries [] Exhaustion [] Unable to work [] Unable to attend buddhist [] Unable to walk/stand [] Unable to read [] Unable to drive [] Unable to eat/drink [] Unable to sleep [] Unable to be with family [] Other: Summary The patient said the patient was feeling better. The patient declined prayer. Time spent with patient
[2019-07-05 17:18] LABS: Hematocrit 22.6 % (37.0-47.0); Hemoglobin 7.6 g/dL (11.5-15.3)
--- NOTE | 2019-07-05 19:05 | PC.NURSE ---
bedside report rcvd at htis time vss per cm. bedrest order reviewed. pt denies pain at this time. walker hunt.
[2019-07-05] MEDS: clindamycin 600 MG/50 ML PREMIX 50 MG IV (20:37)
[2019-07-05] MEDS: sodium chloride 0.9% 1,000 ML 50 ML IV (20:40)
--- NOTE | 2019-07-05 20:41 | PC.NURSE ---
hs meds given at this time. discussed abx c dr. lee will given clindmycin now and re time subsequent doses. pt reports abd pain. hydrocodone given per aug. walker hunt.
[2019-07-06] VITALS (20 sets, daily range): BP systolic 102–139; BP diastolic 67–100; PULSE 76–899; RESP 14–24; TEMP 36.7–37.8; O2SAT 90–100; BMI 24.7
[2019-07-06] MEDS: clindamycin 600 MG/50 ML PREMIX 50 MG IV ×2 (05:00→12:54)
[2019-07-06 05:29] LABS: Hematocrit 22.1 % (37.0-47.0); Hemoglobin 7.6 g/dL (11.5-15.3)
[2019-07-06 05:47] LABS: Alanine Aminotransferase 51 U/L (0-33); Albumin Level 3.6 g/dL (3.5-5.2); Alkaline Phosphatase 52 IU/L (35-105); Anion Gap 15.5 (5-19); Aspartate Amino Transferase 18 U/L (0-32); Blood Urea Nitrogen 7 mg/dL (6-20); Calcium 8.4 mg/Dl (8.6-10.0); Carbon Dioxide 19 mmol/L (22-29); Chloride 108 mmol/L (98-107); Globulin 1.5 g/dL (1.3-4.6); Glucose 77 mg/dL (74-109); Potassium 3.5 mmol/L (3.5-5.1); Sodium 139 mmol/L (136-145); Total Bilirubin 0.3 mg/dL (0.15-1.2); Total Protein 5.1 g/dL (6.6-8.7)
--- NOTE | 2019-07-06 07:32 | PM.PN ---
Subjective Subjective: Interval history: Overall patient feels better Stable H&H No acute events overnight Vitals/I&O/Wt Last Vital Signs Temp 98.2 F 07/06/19 06:00 Pulse 76 07/06/19 06:00 Resp 20 H 07/06/19 06:00 BP 117/74 07/06/19 06:00 Pulse Ox 94 07/06/19 06:00 07/05/19 07/06/19 07/06/19 22:59 06:59 14:59 Intake Total 1750 / 2685 Output Total 1400 / 1400 1100 / 2500 Balance 350 / 1285 -1100 / 185 Weight last 48 hrs Weight 177 lb 3.2 oz Weight 182 lb 1.6 oz Physical Exam Const: COMMON NORMALS: no apparent distress and oriented x3 GENERAL APPEARANCE: cooperative ORIENTATION/CONSCIOUSNESS: Yes awake, Yes oriented to person, Yes oriented to place and Yes oriented to time HENMT: COMMON NORMALS: normocephalic HEAD & SCALP: normocephalic Eye: COMMON NORMALS: PERRL and no scleral icterus PUPIL: Yes PERRL Lymph: LYMPHATIC: no lymphadenopathy noted Chest: COMMONS NORMALS: inspection of chest normal Resp: COMMON NORMALS: normal respiratory effort and clear to auscultation bilaterally AUSCULTATION: clear to auscultation bilaterally Cardio: COMMON NORMALS: S1 normal heart sound and S2 normal heart sound; negative for no murmurs HEART SOUNDS: S1 normal and S2 normal GI: COMMON NORMALS: soft to palpation; negative for no hepatosplenomegaly INSPECTION: Yes normal to inspection PALPATION: Yes soft, No firm, No guarding, No rigid, No no hepatosplenomegaly, No pulsatile mass and Yes other (Mild ecchymosis around the umbilical incision site that has been there since admission stable) Neuro: COMMON NORMALS: oriented x3 SENSORIUM/ORIENTATION: Yes oriented to person, Yes oriented to place and Yes oriented to time Psych: COMMON NORMALS: mental status grossly normal Skin: COMMON NORMALS: no rashes or lesions noted GENERAL SKIN EXAM: no rashes or lesions noted A&P Assessment and plan (1) Liver laceration, grade II, with open wound into cavity: Continue close observation in the ICU Continuous basic sciences dean Repeat H&H at 1400 Will advance to soft GI diet Will start p.o. ferrous gluconate and multivitamin Add stool softener in the form of Metamucil twice daily Repeated physical examination Have the patient out of bed to the chair with continue precautions DC Nelson catheter care Continue incentive spirometer Wean off O2 Assurance and education All questions have been answered and all concerns have been addressed to patient's satisfaction. I do believe at this point patient continues to be appropriate and responding well to conservative measures, so far patient did receive 3 units of packed RBCs and 2 units of FFPs,unless there is deterioration of vital signs, I would hold on any repeat of images likely it will be if any CT scan of the abdomen and pelvis with IV and oral contrast Plan of care has been discussed with the patient and her mother and both agreed on conservative measures Status: Acute Code(s): S36.115A - Moderate laceration of liver, initial encounter Attestations Medical Necessity Statement*: Medical necessity care is expected to cross 2 midnights Coding Level of Care Code Acute College Physics Instructor for Chg Fwd Exam Problem Focused Medical Decision Making Moderate Complexity Diagnoses Liver laceration, grade II, with open wound into cavity S36.115A Time Spent (min) 15
[2019-07-06] MEDS: multivitamin therapeutic Tablet 1 TAB PO (11:32)
[2019-07-06] MEDS: ferrous gluconate 324 mg Tablet PO (11:32)
[2019-07-06] MEDS: psyllium powder Pkt 1 PACKET PO ×2 (11:33→17:56)
[2019-07-06 14:47] LABS: Hematocrit 23.8 % (37.0-47.0)
[2019-07-06] MEDS: diphenhydrAMINE 12.5 mg/5 mL UDC 10 mL PO (17:02)
[2019-07-06] MEDS: acetaminophen 325 mg Tablet 650 MG PO (17:02)
--- NOTE | 2019-07-06 18:30 | PC.NURSE ---
Physician notified of temperature increase of more than 1 degree over 30 minutes, from infusion start time. See TAR vitals for exact record of vitals. Physician on floor and ordered one time dose of tylenol 650 mg, and one time dose of Benadryl 12.5 mg. Close monitoring and slow infusion to continue
--- NOTE | 2019-07-06 19:59 | PC.NURSE ---
assumed care of pt at this time. vss per cm. pt denies pain but reports discomfort. denies need for narcotic pain medication. discussed c dr. lee order rcvd to dc hydrocodone . tylenol 625 mg q6 hrs po. sl ivf. h/h and cmp in am. walker hunt .
[2019-07-06] MEDS: acetaminophen 325 mg Tablet PO (21:00)
[2019-07-06] MEDS: clindamycin 600 MG/50 ML PREMIX 100 MG IV (21:02)
[2019-07-07] VITALS (13 sets, daily range): BP systolic 97–135; BP diastolic 70–91; PULSE 59–84; RESP 20–31; TEMP 36.7–37.3; O2SAT 96–100; BMI 24.7
[2019-07-07 04:58] LABS: Hematocrit 23.8 % (37.0-47.0)
[2019-07-07] MEDS: clindamycin 600 MG/50 ML PREMIX 100 MG IV ×3 (05:07→22:39)
[2019-07-07 05:47] LABS: Alanine Aminotransferase 41 U/L (0-33); Albumin Level 3.4 g/dL (3.5-5.2); Alkaline Phosphatase 51 IU/L (35-105); Anion Gap 12.3 (5-19); Aspartate Amino Transferase 13 U/L (0-32); Blood Urea Nitrogen 8 mg/dL (6-20); Calcium 8.6 mg/Dl (8.6-10.0); Carbon Dioxide 21 mmol/L (22-29); Chloride 107 mmol/L (98-107); Globulin 1.8 g/dL (1.3-4.6); Glucose 94 mg/dL (74-109); Potassium 3.3 mmol/L (3.5-5.1); Sodium 137 mmol/L (136-145); Total Bilirubin 0.5 mg/dL (0.15-1.2); Total Protein 5.2 g/dL (6.6-8.7)
--- NOTE | 2019-07-07 07:36 | PM.PN ---
Subjective Subjective: Interval history: Overall patient feels better, continues to pass gas but no bowel movements yet Stable H&H No acute events overnight that the patient started menstruating and that can be confusing with the blood levels as it is a potential source of blood loss, but she does not have any tachycardia and overall feels stronger Vitals/I&O/Wt Last Vital Signs Temp 98.1 F 07/07/19 05:39 Pulse 64 07/07/19 05:39 Resp 23 H 07/07/19 05:39 BP 114/84 07/07/19 05:39 Pulse Ox 96 07/07/19 05:39 07/06/19 07/07/19 07/07/19 22:59 06:59 14:59 Intake Total 1527.667 / 2097.667 350 / 350 Output Total 550 / 1600 Balance 977.667 / 497.667 350 / 350 Weight last 48 hrs Weight 177 lb 3.2 oz Weight 177 lb 3.2 oz Physical Exam Const: COMMON NORMALS: no apparent distress and oriented x3 GENERAL APPEARANCE: cooperative ORIENTATION/CONSCIOUSNESS: Yes awake, Yes oriented to person, Yes oriented to place and Yes oriented to time HENMT: COMMON NORMALS: normocephalic HEAD & SCALP: normocephalic Eye: COMMON NORMALS: PERRL and no scleral icterus PUPIL: Yes PERRL Lymph: LYMPHATIC: no lymphadenopathy noted Chest: COMMONS NORMALS: inspection of chest normal Resp: COMMON NORMALS: normal respiratory effort and clear to auscultation bilaterally AUSCULTATION: clear to auscultation bilaterally Cardio: COMMON NORMALS: S1 normal heart sound and S2 normal heart sound; negative for no murmurs HEART SOUNDS: S1 normal and S2 normal GI: COMMON NORMALS: soft to palpation; negative for no hepatosplenomegaly INSPECTION: Yes normal to inspection PALPATION: Yes soft, No firm, No guarding, No rigid, No no hepatosplenomegaly, No pulsatile mass and Yes other (Mild ecchymosis around the umbilical incision site that has been there since admission stable) Neuro: COMMON NORMALS: oriented x3 SENSORIUM/ORIENTATION: Yes oriented to person, Yes oriented to place and Yes oriented to time Psych: COMMON NORMALS: mental status grossly normal Skin: COMMON NORMALS: no rashes or lesions noted GENERAL SKIN EXAM: no rashes or lesions noted A&P Assessment and plan (1) Liver laceration, grade II, with open wound into cavity: Continue close observation in the ICU, were getting close for floor transfer Continuous entertainment centre manager Repeat H&H at 1400 Continue soft GI diet Continue p.o. ferrous gluconate and multivitamin stool softener in the form of Metamucil twice daily Repeated physical examination Continue to have the patient out of bed to the chair with continue precautions Continue incentive spirometer every hour while awake Wean off O2 Assurance and education All questions have been answered and all concerns have been addressed to patient's satisfaction. We will repeat H&H at noon Plan of care has been discussed with the patient and her mother and both agreed on conservative measures Status: Acute Code(s): S36.115A - Moderate laceration of liver, initial encounter Attestations Medical Necessity Statement*: Medical necessity care is expected to cross 2 midnights Coding Level of Care Code Acute Hand Nailer for Sarah Walsh Exam Problem Focused Diagnoses Liver laceration, grade II, with open wound into cavity S36.115A
[2019-07-07] MEDS: ferrous gluconate 324 mg Tablet PO (10:16)
[2019-07-07] MEDS: multivitamin therapeutic Tablet 1 TAB PO (10:16)
[2019-07-07] MEDS: acetaminophen 325 mg Tablet PO (12:06)
[2019-07-07] MEDS: acetaminophen 325 mg Tablet 650 MG PO ×2 (12:28→23:12)
[2019-07-07] MEDS: ondansetron 4 MG Tablet PO (13:21)
--- NOTE | 2019-07-07 14:44 | PC.NURSE ---
Orders received from Dr. Li to allow patient to leave unit to take shower on first floor.
--- NOTE | 2019-07-07 17:20 | PC.NURSE ---
Patient transferred to CSU via wheelchair with belongings. Patient ambulated to bed with no difficulties.
[2019-07-08] VITALS (9 sets, daily range): BP systolic 104–128; BP diastolic 61–86; PULSE 65–78; RESP 15–21; TEMP 36.6–37.2; O2SAT 98–100; BMI 24.6
[2019-07-08 04:09] LABS: Hematocrit 26.9 % (37.0-47.0); Hemoglobin 8.9 g/dL (11.5-15.3)
[2019-07-08] MEDS: clindamycin 600 MG/50 ML PREMIX 100 MG IV ×2 (06:08→12:32)
--- NOTE | 2019-07-08 07:39 | P.PN_ITS ---
Subjective Subjective: Interval history: Overall patient feels better, continues to pass gas but no bowel movements yet H&H went to 10.0 then dropped to 8.9,without symptoms No acute events overnight that the patient continue to have her menstruation and that can be confusing with the blood levels as it is a potential source of blood loss, but she does not have any tachycardia and overall feels stronger Vitals/I&O/Wt Last Vital Signs Temp 98 F 07/08/19 06:00 Pulse 65 07/08/19 06:00 Resp 15 07/08/19 06:00 BP 104/61 07/08/19 06:00 Pulse Ox 98 07/08/19 06:00 07/07/19 07/08/19 07/08/19 22:59 06:59 14:59 Intake Total 960 / 2040 50 / 2090 Output Total 300 / 300 Balance 660 / 1740 50 / 1790 Weight last 48 hrs Weight 176 lb 9.6 oz Weight 176 lb 9.6 oz Weight 177 lb 3.2 oz Physical Exam Const: COMMON NORMALS: no apparent distress and oriented x3 GENERAL APPEARANCE: cooperative ORIENTATION/CONSCIOUSNESS: Yes awake, Yes oriented to person, Yes oriented to place and Yes oriented to time HENMT: COMMON NORMALS: normocephalic HEAD & SCALP: normocephalic Eye: COMMON NORMALS: PERRL and no scleral icterus PUPIL: Yes PERRL Lymph: LYMPHATIC: no lymphadenopathy noted Chest: COMMONS NORMALS: inspection of chest normal Resp: COMMON NORMALS: normal respiratory effort and clear to auscultation bilaterally AUSCULTATION: clear to auscultation bilaterally Cardio: COMMON NORMALS: S1 normal heart sound and S2 normal heart sound; negative for no murmurs HEART SOUNDS: S1 normal and S2 normal GI: COMMON NORMALS: soft to palpation; negative for no hepatosplenomegaly INSPECTION: Yes normal to inspection PALPATION: Yes soft, No firm, No guarding, No rigid, No no hepatosplenomegaly, No pulsatile mass and Yes other (Mild ecchymosis around the umbilical incision site that has been there since admission stable) Neuro: COMMON NORMALS: oriented x3 SENSORIUM/ORIENTATION: Yes oriented to person, Yes oriented to place and Yes oriented to time Psych: COMMON NORMALS: mental status grossly normal Skin: COMMON NORMALS: no rashes or lesions noted GENERAL SKIN EXAM: no rashes or lesions noted A&P Assessment and plan (1) Liver laceration, grade II, with open wound into cavity: Continue close observation at the step down unit Continuous threat monitoring analyst Repeat H&H at 1400----9.9 Gm Advance to regular diet Continue p.o. ferrous gluconate and multivitamin stool softener in the form of Metamucil twice daily Repeated physical examination Continue to have the patient out of bed to the chair with continue precautions Continue incentive spirometer every hour while awake Assurance and education All questions have been answered and all concerns have been addressed to patient's satisfaction. Plan of care has been discussed with the patient and her mother and both agreed on conservative measures Status: Acute Code(s): S36.115A - Moderate laceration of liver, initial encounter Attestations Medical Necessity Statement*: Medical necessity care is expected to cross 2 midnights Coding Level of Care Code Acute Environmental Services Aide for Sarah Walsh Exam Problem Focused Diagnoses Liver laceration, grade II, with open wound into cavity S36.115A
[2019-07-08] MEDS: multivitamin therapeutic Tablet 1 TAB PO (08:56)
[2019-07-08] MEDS: ferrous gluconate 324 mg Tablet PO (08:56)
[2019-07-08] MEDS: psyllium powder Pkt 1 PACKET PO (08:57)
[2019-07-08] MEDS: acetaminophen 325 mg Tablet 650 MG PO (14:39)
[2019-07-08 14:42] LABS: Hemoglobin 9.7 g/dL (11.5-15.3)
--- NOTE | 2019-07-08 15:38 | PM.DCS ---
Discharge Providers Date of Admission: 07/04/19 04:02 Date of Discharge: 07/08/19 Attending Provider at Admission: Caesar Li MD Attending Provider at Discharge: Caesar Li MD Diagnoses at Discharge Discharge Diagnosis (1) Liver laceration, grade II, with open wound into cavity: Status: Acute Problem details: Conservative measures were successful H&H stable Plan to discharge patient home today with specific education materials given to the patient and instructions. Reason for Visit Reason for Visit: Reason For Visit: POST GALLBLADDER SURGERY Hospital Course Discharge Summary: This is a pleasant 28 years old female patient undergone uneventful laparoscopic cholecystectomy last Wednesday, she returned back to the ER same evening with dizziness and abdominal pain, CT scan of the abdomen and pelvis was done showed grade 2 liver laceration, without active bleeding, patient was admitted to the ICU under my service with serial H&H and repeated physical examination. Received total of 4 units of packed RBCs and 2 units of FFP's, responded well to conservative measures and continued to have stable H&H, in the interim did start her menstruation which affected little bit of fluctuation of her H&H, yet her physical examination concomitant with her vital signs maintained to be appropriate. Patient tolerated well p.o. intake and continue to have good urine output She was transferred from the ICU to stepdown unit after 3 days in the ICU. Plan to return to surgery office within a week Physical Exam Const: COMMON NORMALS: no apparent distress and oriented x3 GENERAL APPEARANCE: cooperative ORIENTATION/CONSCIOUSNESS: Yes awake, Yes oriented to person, Yes oriented to place and Yes oriented to time HENMT: COMMON NORMALS: normocephalic HEAD & SCALP: normocephalic Eye: COMMON NORMALS: PERRL and no scleral icterus PUPIL: Yes PERRL Lymph: LYMPHATIC: no lymphadenopathy noted Chest: COMMONS NORMALS: inspection of chest normal Resp: COMMON NORMALS: normal respiratory effort and clear to auscultation bilaterally AUSCULTATION: clear to auscultation bilaterally Cardio: COMMON NORMALS: S1 normal heart sound and S2 normal heart sound; negative for no murmurs HEART SOUNDS: S1 normal and S2 normal GI: COMMON NORMALS: soft to palpation; negative for no hepatosplenomegaly INSPECTION: Yes normal to inspection PALPATION: Yes soft, No firm, No tender, No guarding, No rigid and No no hepatosplenomegaly Neuro: COMMON NORMALS: oriented x3 SENSORIUM/ORIENTATION: Yes oriented to person, Yes oriented to place and Yes oriented to time Psych: COMMON NORMALS: mental status grossly normal Skin: COMMON NORMALS: no rashes or lesions noted GENERAL SKIN EXAM: no rashes or lesions noted Discharge Data Data Completed and Pending: Completed Studies During Hospitalization Category Date Time Status CT abdomen pelvis w con* [id number] Urge nt Cat Scan 07/04/19 01:45 Completed Labs from last 24 hours 07/08/19 07/08/19 14:10 03:55 Hgb 9.7 L 8.9 L Hct 29.0 L 26.9 L Vitals: Last Vital Signs Temp 99.0 F 07/08/19 12:00 Pulse 68 07/08/19 12:00 Resp 21 H 07/08/19 12:00 BP 119/81 07/08/19 12:00 Pulse Ox 100 07/08/19 12:00 Discharge Plan Discharge Condition: Stable Prescriptions: No Action No Known Home Medications RF: 0 hydrocodone-acetaminophen [Bridgeton] 5-325 mg tablet 1 tab PO Q6H PRN (Reason: pain) Qty: 28 RF: 0 Discharge Orders: Discharge Order (Routine); Ordered 07/08/19 Ordered By: Caesar Li Referrals: Caesar Li MD [Physician] - 07/13/19 Discharge Diet: Advance as tolerated Activity Restrictions/Additional Instructions: 1. Patient can shower after 48 hours from surgery 2. Remove Dermabond 7 to 10 days after surgery 3. Quite activities are encouraged, avoid any contact sports, avoid any jumping, climbing, running such as bike riding,in line skating, gymnastics, football, basketball, soccer or track. Activities like gym class and contact sports are not allowed for some time after leaving the hospital. Also avoid constipation and straining. Avoid any kind of NSAIDs(ibuprofen, Aleve or naproxen or Toradol can increase the risk of bleeding) 4. Do lift more than 5 pounds first 2 weeks after surgery and not more than 25 pounds 6 to 8 weeks after surgery. 5. Do not operate heavy machinery or drive while using pain medications. 6. Advised to return to ER or contact my office if there are any signs of infection like, increasing pain, fevers, chills, redness or drainage of pus. Discharge Attestations Time Spent in Discharge Care*: less than 30 min Status at Discharge: Cognitive status at discharge: cognitively intact, Behavioral status at discharge: cooperative, Quality Metrics Clinical Quality Measures During this hospital stay, did patient experience: None Coding Level of Care Code Acute Assistant Director Of Admissions for g Fwd Diagnoses Liver laceration, grade II, with open wound into cavity S36.115A
--- NOTE | 2019-07-08 16:51 | PC.NURSE ---
discharge to home with parents Dr. Li at bedside with pt and pt's parents regarding discharge activity restrictions and new discharge meds prescribed as well as follow-up appointment with him next week. pt and parents verbalizes understanding. discharge papers provided to pt.
== END 2019-07-08 16:53 | disposition home or self-care (01) | DRG 443 ==
LOC: ER 01:46 → ICU 04:03 → CSU 07-07 17:05
PROVIDERS: Admitting Provider Surgery; Emergency Provider Emergency Medicine; Visit Provider Surgery
DX: S36.115A Moderate laceration of liver, initial encounter (principal); Y83.8 Other surgical procedures as the cause of abnormal reaction of the patient, or of later complication, without mention of misadventure at the time of the procedure; Y81.3 Surgical instruments, materials and general- and plastic-surgery devices (including sutures) associated with adverse incidents; F17.210 Nicotine dependence, cigarettes, uncomplicated
CPT/HCPCS: 36415; 36430; 74177; 80053; 83690; 85014; 85018; 85025; 85049; 85384; 85610; 85730; 86850; 86900; 97161; 99282; J2270; J2405; J3490; J7030; P9016; P9017; Q0162; Q9967

== ENCOUNTER 2019-07-10 21:27 | Emergency (ER) | payer SELFPAY ==
[2019-07-10 21:31] VITALS: BP 151/105; PULSE 105; RESP 20; TEMP 36.7; O2SAT 100; BMI 23.7
--- NOTE | 2019-07-10 21:39 | CTR_ITS ---
PROCEDURE INFORMATION: Exam: CT Abdomen And Pelvis With Contrast Exam date and time: 07/10/2019 10:10 PM Age: 28 years old Clinical indication: Abdominal pain; Generalized; Prior surgery; Surgery date: 3-7 days post-operative; Surgery type: Gallbladder removed x1 wk, HX of appendectomy, abd pain since gb removal TECHNIQUE: Imaging protocol: Computed tomography of the abdomen and pelvis with intravenous contrast. Total DLP: 813.49 mGy-cm Radiation optimization: All CT scans at this facility use at least one of these dose optimization techniques: automated exposure control; mA and/or kV adjustment per patient size (includes targeted exams where dose is matched to clinical indication); or iterative reconstruction. Contrast material: OMNIPAQUE 300; Contrast volume: 95 ml; Contrast route: IV; COMPARISON: CT abdomen pelvis w con* [id number] 07/04/2019 2:51 AM FINDINGS: Lungs: Nonspecific bibasilar consolidation is present, consistent with atelectasis, edema, or pneumonia. Mediastinum: A small hiatal hernia is present. Liver: Unremarkable.No mass. Gallbladder and bile ducts: There is moderate to severe intrahepatic biliary duct dilatation that is increased since the prior exam. The common bile duct is more dilated in the head of the pancreas with a transverse measurement of 12 mm image 37 today compared to 6 mm previously at the same level. There has been a cholecystectomy. The probable hemorrhage/hematoma in the gallbladder fossa and right upper quadrant is again identified and is smaller now measuring 10.0 by 4.6 by 10.6 cm or previously it measured 11.3 by 6.4 by 14.1 cm. No definite stone or filling defect is identified in the distal common bile duct. Pancreas: Normal. No ductal dilation. Spleen: Normal. No splenomegaly. Adrenals: Normal. No mass. Kidneys and ureters: There are multiple renal hypodensities that cannot be further characterized on the current examination. Stomach and bowel: Unremarkable. No obstruction. No mucosal thickening. Appendix: No evidence of appendicitis. Intraperitoneal space: Ascites/free fluid in the abdomen and pelvis is decreasing. Vasculature: Unremarkable.No abdominal aortic aneurysm. Lymph nodes: Unremarkable.No enlarged lymph nodes. Bladder: There is nonspecific bladder wall thickening. This may be related to incomplete distention. Reproductive: 4.1 cm fluid density cyst left ovary is unchanged. Uterus and right ovary are unremarkable. Bones/joints: Unremarkable. No acute fracture. Soft tissues: Unremarkable. CT/CT abdomen pelvis w con* [id number] IMPRESSION: 1. Nonspecific bibasilar consolidation is present, consistent with atelectasis, edema, or pneumonia. 2. Increased biliary dilatation compared to the prior exam. No definite stone or filling defect in the distal common bile duct. ERCP may be helpful for further evaluation. 3. Probable hematoma/hemorrhage right upper quadrant is smaller than the prior study. There is also decreasing free fluid/ascites. 4. Unchanged left ovarian cyst. No follow-up is necessary Radiation Dose CTDIVOL = (mGy): DLP = 813.49 (mGy-cm)
--- NOTE | 2019-07-10 21:46 | ED_ITS ---
Entered by Analilia Allan, acting as scribe for Karrie Lebron MD HPI - General Adult General: Chief complaint: General Medical Stated complaint: ISSUE POST OP Time Seen by Provider: 07/10/19 21:40 Source: patient Mode of arrival: ambulatory Limitations: no limitations History of Present Illness: HPI narrative: 28 yo f came to the er for constipation and ruq pain. Onset was 1 week ago. Pt had gallbladder surgery 1 week ago and was seen in ed for abd pain and blood in the belly. Pt now states that she is having some constipation and ruq pain. Pt states that she has taken lactalose and has not relieved her at all. Pt is denying nausea and vomiting at this time. complaint: RUQ pain Onset (ago): day(s) (today) Location: abdomen (ruq) Radiation: non-radiation Quality: other (pain) Pain Consistency: constant Relieving factors: none Exacerbating factors: none Associated symptoms: Deny chest pain, dyspnea, headache(s), nausea, rash or vomiting Review of Systems Const: Denies: fever or chills Eyes: Denies: change in vision ENMT: Denies: throat pain or mouth pain Card: Denies: chest pain Resp: Denies: shortness of breath GI: Reports: abdominal pain and constipation; Denies: nausea or vomiting : Denies: difficulty urinating Musc: Denies: back pain or joint pain Skin/Breast: Denies: rash Neuro: Denies: headache Psych: Denies: depression Endo: Denies: excessive urination Travon/Lymph: Denies: easy bruising All/Imm: Denies: hives PFSH ED PFSH: Statuses (acute, chronic, etc) shown below reflect problem list status as previously entered and may not be historically accurate Medical History Liver laceration, grade II, with open wound into cavity (Acute) Conservative measures were successful H&H stable Plan to discharge patient home today with specific education materials given to the patient and instructions. Social History Smoking and tobacco status: current every day smoker cigarettes Packs smoked per day: 1 Physical Exam Const: COMMON NORMALS: no apparent distress and healthy appearing HENMT: COMMON NORMALS: normocephalic and external nose normal HEAD & SCALP: normocephalic NOSE: external nose normal and no nasal discharge (nasal dischage) Eye: COMMON NORMALS: PERRL PUPIL: Yes PERRL Neck/C-Spine: COMMON NORMALS: full ROM and no lymphadenopathy Chest: COMMONS NORMALS: inspection of chest normal Resp: COMMON NORMALS: normal respiratory effort and clear to auscultation bilaterally AUSCULTATION: clear to auscultation bilaterally Cardio: COMMON NORMALS: regular rate and regular rhythm RATE: regular rate RHYTHM: regular rhythm GI: OTHER: Right upper quadrant tenderness Extremity: COMMON NORMALS: normal to inspection, full ROM and normal capillary refill Psych: COMMON NORMALS: mental status grossly normal and cooperative Skin: COMMON NORMALS: no rashes or lesions noted GENERAL SKIN EXAM: no rashes or lesions noted OTHER: juandice Course Vital Signs: Vital signs: Vital Signs Temperature 98.4 F 07/11/19 02:08 Pulse Rate 92 07/11/19 04:43 Respiratory Rate 16 07/11/19 04:43 Blood Pressure 116/66 07/11/19 04:43 Pulse Oximetry 97 07/11/19 04:43 MDM - General Adult MDM Narrative: Medical decision making narrative: Patient presents here with abdominal pain was found to have an elevated bilirubin. CT scan showed common bile duct dilatation concerning for possible stone causing a blockage. I spoke to Dr. Li who recommended transfer as patient likely needs an ERCP. Spoke to [facility] will transfer there for higher level of care. Patient has been stable while here. Lab Data: Labs: Lab Results 07/10/19 07/10/19 07/10/19 Range/Units 21:56 21:56 21:56 WBC 12.5 H (4.0-10.0) 10^3/ uL RBC 3.64 L (4.1-5.3) 10^6/u L Hgb 11.1 L (11.5-15.3) g/dL Hct 33.2 L (37.0-47.0) % MCV 91.2 (81-99) fL MCH 30.5 (28.0-34.0) pg MCHC 33.4 (30.0-36.0) g/dL RDW 14.6 (12.1-15.1) % Plt Count 271 (130-400) 10^3/c mm MPV 9.7 (7.4-10.4) fL Neut % (Auto) 86.7 % Lymph % (Auto) 6.6 % [place] % (Auto) 6.0 % Eos % (Auto) 0.1 % Baso % (Auto) 0.2 % Neut # (Auto) 10.9 H (1.8-7.7) 10^3/u L Lymph # (Auto) 0.8 (0.8-4.8) 10^3/u L [place] # (Auto) 0.8 (0.2-0.9) 10^3/u L Eos # (Auto) 0.0 (0.0-0.8) 10^3/u L Baso # (Auto) 0.0 (0.0-0.1) 10^3/u L Nucleated RBC % (a uto) 0 % Nucleated RBCs # 0.0 /100WBC PT 13.90 H (10.5-13.3) SECO NDS INR 1.03 (0.8-1.2) Sodium 134 L (136-145) mmol/L Potassium 3.9 (3.5-5.1) mmol/L Chloride 98 (98-107) mmol/L Carbon Dioxide 22 (22-29) mmol/L Anion Gap 17.9 (5-19) BUN 8 (6-20) mg/dL Creatinine 0.3 L (0.5-0.9) mg/dL GFR Calculation 266.9 H (90-130) mL/min Glucose 157 H (74-109) mg/dL Calcium 9.8 (8.6-10.0) mg/Dl Total Bilirubin 5.6 H (0.15-1.2) mg/dL Direct Bilirubin (0.00-0.30) mg/d L Indirect Bilirubin AST 320 H (0-32) U/L ALT 353 H (0-33) U/L Alkaline Phosphata se 301 H (35-105) IU/L Total Protein 7.3 (6.6-8.7) g/dL Albumin 4.3 (3.5-5.2) g/dL Globulin 3.0 (1.3-4.6) g/dL Lipase 15 (13-60) U/L Blood Type Antibody Screen 07/10/19 07/10/19 Range/Units 21:56 23:00 WBC (4.0-10.0) 10^3/ uL RBC (4.1-5.3) 10^6/u L Hgb (11.5-15.3) g/dL Hct (37.0-47.0) % MCV (81-99) fL MCH (28.0-34.0) pg MCHC (30.0-36.0) g/dL RDW (12.1-15.1) % Plt Count (130-400) 10^3/c mm MPV (7.4-10.4) fL Neut % (Auto) % Lymph % (Auto) % [place] % (Auto) % Eos % (Auto) % Baso % (Auto) % Neut # (Auto) (1.8-7.7) 10^3/u L Lymph # (Auto) (0.8-4.8) 10^3/u L [place] # (Auto) (0.2-0.9) 10^3/u L Eos # (Auto) (0.0-0.8) 10^3/u L Baso # (Auto) (0.0-0.1) 10^3/u L Nucleated RBC % (a uto) % Nucleated RBCs # /100WBC PT (10.5-13.3) SECO NDS INR (0.8-1.2) Sodium (136-145) mmol/L Potassium (3.5-5.1) mmol/L Chloride (98-107) mmol/L Carbon Dioxide (22-29) mmol/L Anion Gap (5-19) BUN (6-20) mg/dL Creatinine (0.5-0.9) mg/dL GFR Calculation (90-130) mL/min Glucose (74-109) mg/dL Calcium (8.6-10.0) mg/Dl Total Bilirubin 5.7 H (0.15-1.2) mg/dL Direct Bilirubin 4.60 H (0.00-0.30) mg/d L Indirect Bilirubin 1.10 AST (0-32) U/L ALT (0-33) U/L Alkaline Phosphata se (35-105) IU/L Total Protein (6.6-8.7) g/dL Albumin (3.5-5.2) g/dL Globulin (1.3-4.6) g/dL Lipase (13-60) U/L Blood Type O Positive Antibody Screen Negative Imaging Data^: CT Abd/Pel: Radiologist's impression: [facility] [address] [place] [address] CT Scan Report Signed Patient: Abby Bernal #: [id number] : 1990Acct#:[id number] Age/Sex: 28 / FADM Date: 07/10/19 Loc: ERRoom/Bed: Attending Dr: Ordering Provider/Ordering MD: Karrie Lberon MD Date of Service: 07/10/19 Procedure(s): CT abdomen pelvis w con* [id number] Accession Number(s): [id number] Report Number: [id number] PROCEDURE INFORMATION: Exam: CT Abdomen And Pelvis With Contrast Exam date and time: 07/10/2019 10:10 PM Age: 28 years old Clinical indication: Abdominal pain; Generalized; Prior surgery; Surgery date: 3-7 days post-operative; Surgery type: Gallbladder removed x1 wk, HX of appendectomy, abd pain since gb removal TECHNIQUE: Imaging protocol: Computed tomography of the abdomen and pelvis with intravenous contrast. Total DLP: 813.49 mGy-cm Radiation optimization: All CT scans at this facility use at least one of these dose optimization techniques: automated exposure control; mA and/or kV adjustment per patient size (includes targeted exams where dose is matched to clinical indication); or iterative reconstruction. Contrast material: OMNIPAQUE 300; Contrast volume: 95 ml; Contrast route: IV; COMPARISON: CT abdomen pelvis w con* [id number] 07/04/2019 2:51 AM FINDINGS: Lungs: Nonspecific bibasilar consolidation is present, consistent with atelectasis, edema, or pneumonia. Mediastinum: A small hiatal hernia is present. Liver: Unremarkable.No mass. Gallbladder and bile ducts: There is moderate to severe intrahepatic biliary duct dilatation that is increased since the prior exam. The common bile duct is more dilated in the head of the pancreas with a transverse measurement of 12 mm image 37 today compared to 6 mm previously at the same level. There has been a cholecystectomy. The probable hemorrhage/hematoma in the gallbladder fossa and right upper quadrant is again identified and is smaller now measuring 10.0 by 4.6 by 10.6 cm or previously it measured 11.3 by 6.4 by 14.1 cm. No definite stone or filling defect is identified in the distal common bile duct. Pancreas: Normal. No ductal dilation. Spleen: Normal. No splenomegaly. Adrenals: Normal. No mass. Kidneys and ureters: There are multiple renal hypodensities that cannot be further characterized on the current examination. Stomach and bowel: Unremarkable. No obstruction. No mucosal thickening. Appendix: No evidence of appendicitis. Intraperitoneal space: Ascites/free fluid in the abdomen and pelvis is decreasing. Vasculature: Unremarkable.No abdominal aortic aneurysm. Lymph nodes: Unremarkable.No enlarged lymph nodes. Bladder: There is nonspecific bladder wall thickening. This may be related to incomplete distention. Reproductive: 4.1 cm fluid density cyst left ovary is unchanged. Uterus and right ovary are unremarkable. Bones/joints: Unremarkable. No acute fracture. Soft tissues: Unremarkable. CT/CT abdomen pelvis w con* [id number] IMPRESSION: 1. Nonspecific bibasilar consolidation is present, consistent with atelectasis, edema, or pneumonia. 2. Increased biliary dilatation compared to the prior exam. No definite stone or filling defect in the distal common bile duct. ERCP may be helpful for further evaluation. 3. Probable hematoma/hemorrhage right upper quadrant is smaller than the prior study. There is also decreasing free fluid/ascites. 4. Unchanged left ovarian cyst. No follow-up is necessary Radiation Dose CTDIVOL = (mGy): DLP = 813.49 (mGy-cm) Dictated By:Ammy Stewart Signed By:Kelsey Stewart Date/Time:07/10/19 5187 Discharge Plan Discharge Patient Disposition: Xfer Other Clinical Impression: Jaundice Abdominal pain Qualifiers: Abdominal location: right upper quadrant Qualified Code(s): R10.11 - Right upper quadrant pain Condition: Stable Patient Instructions: Cholecystitis (ED), Abdominal Pain (ED) Coding Level of Care Code ED Aging Room Operator for Chg Fwd Exam Problem Focused The documentation recorded by the Jerrell gracia Stephanie Lyn, accurately reflects the service I personally performed and the decisions made by Vi reinoso Korby, MD Jul 10, 2019 21:27
[2019-07-10 22:04] LABS: Basophils % 0.2 %; Eosinophils % 0.1 %; Hematocrit 33.2 % (37.0-47.0); Hemoglobin 11.1 g/dL (11.5-15.3); Lymphocytes # 0.8 10^3/uL (0.8-4.8); Lymphocytes % 6.6 %; Mean Corpuscular HGB Conc 33.4 g/dL (30.0-36.0); Mean Corpuscular Hemoglobin 30.5 pg (28.0-34.0); Mean Corpuscular Volume 91.2 fL (81-99); Mean Platelet Volume 9.7 fL (7.4-10.4); Monocytes # 0.8 10^3/uL (0.2-0.9); Neutrophils # 10.9 10^3/uL (1.8-7.7); Neutrophils % 86.7 %; Nucleated Red Blood Cells % 0 %; Platelet Count 271 10^3/cmm (130-400); Red Blood Count 3.64 10^6/uL (4.1-5.3); Red Cell Distribution Width 14.6 % (12.1-15.1); White Blood Count 12.5 10^3/uL (4.0-10.0)
--- NOTE | 2019-07-10 22:04 | PC.NURSE ---
20g IV in L hand x2 attempts. Secured with venaguard
[2019-07-10 22:14] LABS: INR 1.03 (0.8-1.2)
[2019-07-10] MEDS: iohexol 300 mg/mL 100 mL Btl IV (22:31)
[2019-07-10 23:36] LABS: Alanine Aminotransferase 353 U/L (0-33); Albumin Level 4.3 g/dL (3.5-5.2); Alkaline Phosphatase 301 IU/L (35-105); Anion Gap 17.9 (5-19); Blood Urea Nitrogen 8 mg/dL (6-20); Calcium 9.8 mg/Dl (8.6-10.0); Carbon Dioxide 22 mmol/L (22-29); Chloride 98 mmol/L (98-107); Glomerular Filtration Rate 266.9 mL/min (90-130); Glucose 157 mg/dL (74-109); Lipase 15 U/L (13-60); Potassium 3.9 mmol/L (3.5-5.1); Sodium 134 mmol/L (136-145); Total Bilirubin 5.6 mg/dL (0.15-1.2); Total Protein 7.3 g/dL (6.6-8.7)
[2019-07-10] MEDS: ondansetron 2 mg/ML SDV 2 mL 4 MG IVP (23:54)
--- NOTE | 2019-07-10 23:55 | PC.NURSE ---
Pt stated during Zofran adm that she is having new bruising around her umbilicus
[2019-07-11 01:11] LABS: Aspartate Amino Transferase 320 U/L (0-32)
[2019-07-11 01:28] LABS: Total Bilirubin 5.7 mg/dL (0.15-1.2)
[2019-07-11] MEDS: clindamycin 900 MG/50 ML PREMIX 100 MG IV (01:50)
[2019-07-11 02:08] VITALS: BP 120/77; PULSE 88; RESP 16; TEMP 36.9; O2SAT 97
[2019-07-11] MEDS: metroNIDAZOLE IV 500 MG/100 ML PREMIX 100 MG IV (02:58)
--- NOTE | 2019-07-11 04:42 | PC.NURSE ---
no needs voiced at this time, patient and family updated on plan of care
[2019-07-11 04:43] VITALS: BP 116/66; PULSE 92; RESP 16; O2SAT 97
[2019-07-11 05:31] VITALS: BP 103/55; PULSE 88; RESP 16; O2SAT 97
--- NOTE | 2019-07-11 05:31 | PC.NURSE ---
Report given to Efra Manager Van before transfer
== END 2019-07-11 05:32 | disposition other institution (70) ==
PROVIDERS: Emergency Provider Emergency Medicine
DX: R10.11 Right upper quadrant pain (principal); R17 Unspecified jaundice; F17.210 Nicotine dependence, cigarettes, uncomplicated
CPT/HCPCS: 36415; 74177; 80053; 82247; 82248; 83690; 85025; 85610; 86850; 86900; 96365; 96374; 99281; J2405; J3490; Q9967; S0030

== ENCOUNTER 2020-06-02 22:36 | Emergency (ER) | payer OTHER, SELFPAY ==
[2020-06-02 22:51] VITALS: BP 133/90; PULSE 154; RESP 18; TEMP 36.5; O2SAT 94; BMI 23.7
--- NOTE | 2020-06-02 23:25 | W.ED.COVID ---
HPI - COVID General: Chief Complaint: COVID symptoms Stated Complaint: covid exposure/dry cough Time Seen by Provider: 06/02/20 23:25 Triage information: Has fever, cough or shortness of breath. Exposure to COVID + person last 14 days History of Present Illness: HPI Narrative: Patient is a 21-year-old female who comes to the ED with dry cough and known Covid positive patient exposure. Patient has a history of anxiety. 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 She started having symptoms today of nasal congestion, dry cough, low-grade fever and chills. She states that while she was at work walking around she was checking her oxygen saturation level and it was going down into the 80s patient has albuterol nebulizer at home and she last administered dose around 8 PM tonight. Denies chest pain, shortness of breath, hemoptysis abdominal pain, nausea/vomiting, diarrhea, dysuria or hematuria. Patient also said that her child was currently diagnosed with an upper respiratory virus that is not COVID-19 or influenza. I asked patient about her current heart rate being around 110-120 range and she says that is not normal for her. Usual heart rate is around 70 to 90 bpm. she did say she has anxiety and does feel little anxious currently. Patient also states that she just finished working a 23-hour shift at the shelter and came straight here to the ED per work instruction to get Covid testing done. COVID 19 common symptoms: positive fever(s), chills, non-productive cough and nasal congestion; negative productive cough, dyspnea, fatigue, headache(s), throat pain, nausea, vomiting or diarrhea COVID 19 other sytmptoms: negative chest pain COVID Results: SARS-CoV-2 RNA (RT-PCR) Pending 06/03/20 00:23 06/03/20 Review of Systems Const: Reports: fever(s) and chills; Denies: fatigue Eyes: Denies: change in vision or eye discomfort ENMT: Reports: nasal discharge and nasal congestion; Denies: throat pain or odynophagia Card: Denies: chest pain, palpitations, edema, swelling of feet/ankles, dyspnea on exertion or orthopnea Resp: Reports: non-productive cough; Denies: dyspnea or productive cough GI: Denies: abdominal pain, nausea, vomiting, diarrhea, constipation or hematochezia : Denies: flank pain, dysuria or hematuria Musc: Denies: neck pain, back pain or extremity swelling Skin/Breast: Denies: rash or new lesions Neuro: Denies: headache(s), numbness in extremities or weakness in extremities PFSH ED PFSH: Medical History (Updated 06/03/20 @ 00:19 by ANNA London) GERD (gastroesophageal reflux disease) Liver laceration, grade II, with open wound into cavity Conservative measures were successful H&H stable Plan to discharge patient home today with specific education materials given to the patient and instructions. Surgical History H/O cone biopsy of cervix History of ERCP History of laparoscopic cholecystectomy (~06/2019) S/P appy Family History Other History of ERCP Denies family history of Anesthesia complication Bleeding disorder Social History Smoking and tobacco status: current every day smoker cigarettes Packs smoked per day: 1 Second hand smoke exposure: Yes Alcohol intake: never Adopted: No Caregiver/support person: Yes Lives independently: Yes Household members: family Housing: Apartment Marital status: Single Number of children: 1 Highest education level completed: High School Graduate service: No Current occupational status: employed Current occupation: [employer] Current occupational exposures/hazards: No Pets and animals: No History of recent travel: No Leisure activites: exercise Sexually active: Yes Current gender identity: Female Lakeisha/Latter Day: Sikh Special lakeisha needs: No Agree to transfusion: No Financial difficulty paying for basics: Decline to Answer Physical Exam Const: COMMON NORMALS: no acute distress, patient oriented x3 and alert GENERAL APPEARANCE: cooperative and comfortable HENMT: COMMON NORMALS: normocephalic HEAD & SCALP: normocephalic MOUTH: Normal oral and palatal mucosa present THROAT: posterior oropharynx normal and uvula midline Neck/C-Spine: COMMON NORMALS: supple GENERAL: Yes normal visual inspection Resp: COMMON NORMALS: normal respiratory effort, No retractions, No use of accessory muscles and clear to auscultation bilaterally EFFORT & INSPECTION: Yes able to speak in complete sentences, No tachypneic, No respiratory distress and No labored AUSCULTATION: clear to auscultation bilaterally and wheezes (Patient had very mild upper bilateral wheezing.) expiratory wheezes and upper bilaterally OTHER: Some very mild wheezing in both right and left upper lobes of the lung heard. The rest of the lung escobedo were clear to auscultation bilaterally. Cardio: COMMON NORMALS: regular rhythm, S1 normal heart sound present, S2 normal heart sound present, No gallops present (Cardio), No clicks present (Cardio), No murmurs present (Cardio) and Peripheral pulses 2+ throughout RATE: tachycardic (110 to 115 bpm) RHYTHM: regular rhythm HEART SOUNDS: S1 normal heart sound present and S2 normal heart sound present PERIPHERAL PULSES: Peripheral pulses 2+ throughout GI: COMMON NORMALS: Normal to inspection, nondistended, normoactive bowel sounds present, Soft to palpation, non-tender and no masses PALPATION: Yes Soft to palpation : COMMON NORMALS: Yes no CVA tenderness BLADDER/KIDNEY EXAM: Yes no CVA tenderness Back/Pelvis: COMMON NORMALS: no CVA tenderness Extremity: COMMON NORMALS: normal to inspection and no pedal edema Neuro: COMMON NORMALS: patient oriented x3 and moves all extremities SENSORIUM/ORIENTATION: Yes alert Skin: GENERAL SKIN EXAM: dry skin Course ED course: Triage nurse had patient ambulate on the floor to check her oxygen levels while she was up and moving. Patient O2 sat never got below 93%. Vital Signs: Vital signs: Vital Signs Temperature 97.7 F 06/02/20 22:51 Pulse Rate 89 06/03/20 02:42 Respiratory Rate 16 06/03/20 02:42 Blood Pressure 121/70 06/03/20 02:42 Pulse Oximetry 92 06/03/20 02:42 MDM - COVID MDM Narrative: Medical decision making narrative: Patient is a 29-year-old female comes to the ED with exposure to COVID-19 positive patient at work. She currently has a dry cough and nasal drainage/congestion. Patient showing no signs of any acute respiratory distress. She has some very mild bilateral upper lung wheezing. All other lung escobedo are clear to auscultation. Vitals stable. Influenza negative, chest x-ray showed no acute findings there infiltrates. [facility] Covid 19 test pending. Patient diagnosed with close exposure to COVID-19 and upper respiratory viral infection. She was told to continue using her at home albuterol nebulizer as needed for wheezing. I sent her with a prescription for prednisone and she was given an IM dose of Solu-Medrol here in the ED. Return to ED precautions given. She was instructed on self quarantine procedure. She was told to contact [facility] in the next 2 to 3 days to find out COVID-19 testing results. Follow-up with PCP in 7 to 10 days for reevaluation. Patient understood and agreed with plan. Lab Data: Labs: Lab Results 06/03/20 Range/Units 00:23 Influenza Type A A g Negative (Negative) Influenza Type B A g Negative (Negative) Imaging Data: CXR: Attestation: I personally reviewed and interpreted this imaging study as follows: My impression: No acute findings or infiltrates seen. COVID Results: SARS-CoV-2 RNA (RT-PCR) Pending 06/03/20 00:23 06/03/20 Discharge Plan Discharge Patient Disposition: Home Clinical Impression: Close exposure to severe acute respiratory syndrome coronavirus 2 (SARS-CoV-2), Upper respiratory infection, viral Condition: Stable Prescriptions: New prednisone 50 mg tablet 50 mg PO DAILY 5 Days Qty: 5 RF: 0 No Action biotin 5,000 mcg tablet, sublingual 5,000 mcg SUBLINGUAL DAILY RF: 0 acetaminophen 325 mg Tablet 650 mg PO Q6H PRN (Reason: Mild Pain) Qty: 30 RF: 0 ondansetron HCl 4 mg Tablet 4 mg PO Q6H PRN (Reason: Nausea And Vomiting) Qty: 30 RF: 0 ferrous gluconate 324 mg (37.5 mg iron) Tablet 37.5 mg PO BREAKFAST Qty: 30 RF: 0 Thera 400 mcg Tablet 1 tab PO DAILY Qty: 30 RF: 1 hydrocodone-acetaminophen [[place]] 5-325 mg tablet 1 tab PO Q6H PRN (Reason: pain) Qty: 28 RF: 0 Metamucil 3.4 gram/5.4 gram Powder 1 tbsp PO DAILY RF: 0 Discharge Orders: Discharge ED (Routine); Ordered 06/03/20 Ordered By: Larry Stanton Referrals: Shiraz Palmer MD [Primary Care Provider] - Discharge Diet: Regular Discharge Activity: Limit activity as instructed Patient Instructions: Viral Syndrome (ED), Upper Respiratory Infection - Adult Activity Restrictions/Additional Instructions: Follow-up with medical provider as directed in 7-10 days. COVID testing was performed and sent to lab and results will be back in 2 to 3 days. Self quarantine for the next 3 days or up to 12 days pending on COVID testing results. Contact [facility] in 2 to 3 days to get results or [facility] will contact you with results. Take ibuprofen or Tylenol for fevers. Drink plenty of fluids and stay hydrated. Symptom management with [id number] cough and nasal decongestant meds. Return to the ER or your medical provider if condition worsens. Please read and understand discharge instructions. If any questions, please ask. Coding Level of Care Code ED Student Development Advisor for Sarah Fwd Exam Comprehensive
--- NOTE | 2020-06-02 23:47 | XR_ITS ---
WS: [id number] XR chest 1V portable [id number] REASON FOR EXAM: cough FINDINGS: The heart and mediastinum are within normal limits. No active pulmonary parenchymal or pleural disease. The bony thorax is intact. XR/XR chest 1V portable [id number] IMPRESSION: No acute abnormality.
[2020-06-02 23:48] VITALS: O2SAT 96
[2020-06-03 00:10] VITALS: BP 114/82; PULSE 116; RESP 17; O2SAT 96
[2020-06-03 02:04] LABS: Influenza A by IFA Negative (Negative); Influenza B by IFA Negative (Negative)
[2020-06-03 02:42] VITALS: BP 121/70; PULSE 89; RESP 16; O2SAT 92
[2020-06-04 18:27] LABS: Quest SARS-CoV-2 RNA NOT DETECTED (NOT DETECTED)
== END 2020-06-03 02:44 | disposition home or self-care (01) ==
PROVIDERS: Emergency Provider Physician Assistant; PCP Family Medicine
DX: J06.9 Acute upper respiratory infection, unspecified (principal); Z20.828 Contact with and (suspected) exposure to other viral communicable diseases; F17.210 Nicotine dependence, cigarettes, uncomplicated
CPT/HCPCS: 12345; 71045; 87635; 87804; 96372; 99281; 99283; J2930

== ENCOUNTER → 2020-12-17 13:43 | Outpatient (BNVA) | payer OTHER, SELFPAY | PROVIDERS: PCP Family Medicine; Visit Provider Nurse Practitioner Family | DX: Z20.822 Contact with and (suspected) exposure to COVID-19 (principal) | CPT/HCPCS: 87635 ==

== ENCOUNTER → 2021-01-09 09:33 | Outpatient (BNVA) | payer OTHER, SELFPAY | PROVIDERS: PCP Family Medicine; Visit Provider Emergency Medicine | DX: Z20.822 Contact with and (suspected) exposure to COVID-19 (principal) | CPT/HCPCS: 87635 ==

== ENCOUNTER 2021-04-03 16:25 | Emergency (ER) | payer SELFPAY ==
[2021-04-03 16:49] VITALS: BP 131/81; PULSE 100; RESP 16; TEMP 36.8; O2SAT 99; BMI 25.1
--- NOTE | 2021-04-03 17:04 | USR_ITS ---
PROCEDURE INFORMATION: Exam: US Pelvis, Transvaginal Exam date and time: 04/03/2021 5:04 PM Age: 30 years old Clinical indication: Pelvic pain; Prior surgery; Surgery date: 6+ months; Surgery type: Cone on cervix; Additional info: Vag bleeding TECHNIQUE: Imaging protocol: Real-time transvaginal pelvic ultrasound with image documentation. Transvaginal imaging was used for better evaluation of the endometrium, adnexa, and/or cervix. COMPARISON: CT abdomen pelvis w con* [id number] 07/10/2019 10:43 PM FINDINGS: Uterus/cervix: The uterus is anteverted and measures approximately 6.0 cm x 3.4 cm x 4.1 cm. Endometrial stripe thickness within normal limits at 0.9 cm. Right adnexa: The right ovary measures 3.2 cm x 2.9 cm on transverse view. Vascular flow is detected in the ovary. Left adnexa: The left ovary measures 3.1 cm x 3.0 cm x 1.7 cm. Vascular flow is detected in the left ovary. Intraperitoneal space: No free fluid identified in the pelvis. US/US transvaginal [id number] IMPRESSION: 1. The uterus and ovaries are sonographically unremarkable. Radiation Dose CTDIVOL = (mGy): DLP = (mGy-cm)
[2021-04-03 17:36] LABS: Basophils # 0.1 10^3/uL (0.0-0.1); Basophils % 0.7 %; Eosinophils # 0.1 10^3/uL (0.0-0.8); Eosinophils % 0.8 %; Hematocrit 41.6 % (37.0-47.0); Hemoglobin 14.1 g/dL (11.5-15.3); Lymphocytes # 2.7 10^3/uL (0.8-4.8); Lymphocytes % 25.9 %; Mean Corpuscular HGB Conc 33.9 g/dL (30.0-36.0); Mean Corpuscular Hemoglobin 31.5 pg (28.0-34.0); Mean Corpuscular Volume 93.1 fl (81-99); Mean Platelet Volume 9.4 fL (7.4-10.4); Monocytes # 0.7 10^3/uL (0.2-0.9); Monocytes % 6.2 %; Neutrophils # 6.93 10^3/uL (1.8-7.7); Neutrophils % 66.3 %; Nucleated Red Blood Cells % 0 %; Platelet Count 305 10^3/cmm (130-400); Red Blood Count 4.47 10^6/uL (4.1-5.3); Red Cell Distribution Width 13.2 % (12.1-15.1); White Blood Count 10.4 10^3/uL (4.0-10.0)
[2021-04-03 17:41] LABS: Add Urine Microscopic? NO; Charge for UA Resulting for Rev
[2021-04-03 17:54] LABS: Bilirubin Urine Neg (Negative); Blood Urine Neg (Negative); Glucose Urine UA Norm (Normal); Ketones Urine Negative (Negative); Leukocyte Esterase Urine Negative (Negative); Nitrate Urine Negative (Negative); Protein Urine Neg (Negative); Specific Gravity, Urine 1.005 (1.005-1.030); Urine Appearance Clear (CLEAR); Urine Color Yellow (Yellow); Urobilinogen Urine Norm (Negative); pH Urine 7 (5-7)
[2021-04-03 18:06] LABS: INR 1.04 (0.8-1.2)
[2021-04-03 18:21] LABS: Alanine Aminotransferase 13 U/L (0-33); Albumin Level 4.8 g/dL (3.5-5.2); Alkaline Phosphatase 64 IU/L (35-105); Anion Gap 17.8 (5-19); Aspartate Amino Transferase 14 U/L (0-32); Blood Urea Nitrogen 11 mg/dL (6-20); Calcium 9.8 mg/dL (8.5-10.5); Carbon Dioxide 23 mmol/L (22-29); Chloride 101 mmol/L (98-107); Globulin 3.2 g/dL (1.3-4.6); Glomerular Filtration Rate 84.8 mL/min (90-130); Glucose 68 mg/dL (65-115); Lipase 32 U/L (13-60); Osmolality Calculated 284 mOsm/kg (285-295); Potassium 3.8 mmol/L (3.5-5.1); Sodium 138 mmol/L (136-145); Total Bilirubin 0.2 mg/dL (0.15-1.2)
--- NOTE | 2021-04-03 18:28 | W.ED.GENADLT ---
HPI - General Adult General: Chief complaint: Abdominal Pain Stated complaint: LOWER ABD PAIN Time Seen by Provider: 04/03/21 17:03 History of Present Illness: HPI narrative: Patient is a 30-year-old female with history of ovarian cyst, prior cervical cancer from 2 years ago who presents the emergency room with sudden onset right lower quadrant abdominal pain since 3PM today. Patient states that she has noticed 1 episode of bloody discharge. She is currently sexually active, denies any vaginal itchiness, vaginal pain or foul-smelling odor. Patient denies any urinary symptoms, nausea/vomiting, flank pain. No prior history of kidney stones. Patient has had appendectomy cholecystectomy previously. Onset: 3pm Duration:2 hrs and 30 minutes Location: home Severity moderate Review of Systems Narrative: Constitutional: No fever, no chills. HEENT: No vision changes CV: No chest pain, no palpitations PULM: no cough, no dyspnea. GI: +RLQ abdominal pain, no N/V/D. : No dysuria MSKEL: No muscle pain SKIN: No new rashes, no lesions. NEURO: No headache, no focal weakness. HEME: No visible bruises PSYCH: Normal mood PFSH ED PFSH: Medical History (Updated 04/03/21 @ 20:50 by Devang Vargas MD) GERD (gastroesophageal reflux disease) Liver laceration, grade II, with open wound into cavity Conservative measures were successful H&H stable Plan to discharge patient home today with specific education materials given to the patient and instructions. Surgical History H/O cone biopsy of cervix History of ERCP History of laparoscopic cholecystectomy (~06/2019) S/P appy Family History Other History of ERCP Denies family history of Anesthesia complication Bleeding disorder Social History (Updated 12/17/20 @ 10:25 by Nahed Zimmerman NP) Smoking and tobacco status: current every day smoker cigarettes Packs smoked per day: 1 Second hand smoke exposure: Yes Alcohol intake: current Alcohol intake frequency: holidays/special occasions only Adopted: No Caregiver/support person: Yes Lives independently: Yes Household members: family Marital status: Single Current gender identity: Female Lakeisha/Mandaeism: Taoism Special lakeisha needs: No Female Reproductive History: Date of last menstrual period: 09/19/20 Physical Exam Narrative: EXAM NARRATIVE: Head: Atraumatic Eyes: PERRL, conjunctiva without injection ENT: Mucous membrane moist NECK: Supple, ROM intact LUNGS: LCTAB, no crackles/rhonchi CV: RRR ABDOMEN: Soft, +mild RLQ tenderness to palpation. No guarding rebound, guarding, rigidity. No CVA tenderness to percussion. Neg Gilliam/Neg McBurney's point tenderness, no suprabupic tenderness to palpation. EXTREMITY: Normal ROM SKIN: No rash or erythema NEURO: Awake and alert, no focal motor deficits PSYCH: Normal mood and affect : External genitalia wnl. No erythema around cervical os, os closed, no discharge, no bleeding. No CMT, no adnexal tenderness. Exam supervised by Jeanette FISHER Course Vital Signs: Vital signs: Vital Signs Temperature 98.3 F 04/03/21 16:49 Pulse Rate 72 04/03/21 21:23 Respiratory Rate 18 04/03/21 21:23 Blood Pressure 112/78 04/03/21 21:23 Pulse Oximetry 98 04/03/21 21:23 MDM - General Adult MDM Narrative: Medical decision making narrative: 30-year-old female presents emergency room with complaints of right lower quadrant abdominal pain since 3 PM today. On exam, patient has mild tenderness to palpation, rest of vital signs within normal limit. is unremarkable Laboratory evaluation, patient's negative today. H&H appears to be stable. Patient has minimal white count elevation. UA is negative for any signs of kidney stones or UTI. Vaginal ultrasound confirmed good flow,. There is no signs of tubo-ovarian abscess or PID on physical exam or imaging findings. 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 Disposition: Discharge. Patient counseled regarding diagnostic impression, treatment plan. Patient given ED strict return precautions to return for continuation, worsening, or development of new symptoms. Instructed to f/u w/ PCP regarding symptoms today. Patient verbalized understanding. Lab Data: Labs: Lab Results 04/03/21 04/03/21 04/03/21 17:21 17:29 17:29 WBC 10.4 10^3/uL H 10 ^3/uL (4.0-10.0) RBC 4.47 10^6/uL 10^6 /uL (4.1-5.3) Hgb 14.1 g/dL g/dL (11.5-15.3) Hct 41.6 % % (37.0-47.0) MCV 93.1 fl fl (81-99) MCH 31.5 pg pg (28.0-34.0) MCHC 33.9 g/dL g/dL (30.0-36.0) RDW 13.2 % % (12.1-15.1) Plt Count 305 10^3/cmm 10^3 /cmm (130-400) MPV 9.4 fL fL (7.4-10.4) Neut % (Auto) 66.3 % % Lymph % (Auto) 25.9 % % Caroline % (Auto) 6.2 % % Eos % (Auto) 0.8 % % Baso % (Auto) 0.7 % % Neut # (Auto) 6.93 10^3/uL 10^3 /uL (1.8-7.7) Lymph # (Auto) 2.7 10^3/uL 10^3/ uL (0.8-4.8) Caroline # (Auto) 0.7 10^3/uL 10^3/ uL (0.2-0.9) Eos # (Auto) 0.1 10^3/uL 10^3/ uL (0.0-0.8) Baso # (Auto) 0.1 10^3/uL 10^3/ uL (0.0-0.1) Nucleated RBC % (a uto) 0 % % Nucleated RBCs # 0.0 /100WBC /100W BC PT INR APTT Sodium 138 mmol/L mmol/L (136-145) Potassium 3.8 mmol/L mmol/L (3.5-5.1) Chloride 101 mmol/L mmol/L (98-107) Carbon Dioxide 23 mmol/L mmol/L (22-29) Anion Gap 17.8 (5-19) BUN 11 mg/dL mg/dL (6-20) Creatinine 0.8 mg/dL mg/dL (0.5-0.9) GFR Calculation 84.8 mL/min L mL/ min (90-130) Glucose 68 mg/dL mg/dL (65-115) Calculated Osmolal ity 284 mOsm/kg L mOs m/kg (285-295) Calcium 9.8 mg/dL mg/dL (8.5-10.5) Total Bilirubin 0.2 mg/dL mg/dL (0.15-1.2) AST 14 U/L U/L (0-32) ALT 13 U/L U/L (0-33) Alkaline Phosphata se 64 IU/L IU/L (35-105) Total Protein 8.0 g/dL g/dL (6.6-8.7) Albumin 4.8 g/dL g/dL (3.5-5.2) Globulin 3.2 g/dL g/dL (1.3-4.6) Lipase 32 U/L U/L (13-60) Ser , [place] i-Qnt 0.50 mIU/mL mIU/m L Urine Color Yellow (Yellow) Urine Appearance Clear (CLEAR) Urine pH 7 (5-7) Ur Specific Gravit y 1.005 (1.005-1.030) Urine Protein Neg (Negative) Urine Glucose (UA) Norm (Normal) Urine Ketones Negative (Negative) Urine Blood Neg (Negative) Urine Nitrate Negative (Negative) Urine Bilirubin Neg (Negative) Urine Urobilinogen Norm mg/dL mg/dL (Negative) Ur Leukocyte Angle ase Negative (Negative) 04/03/21 17:30 WBC RBC Hgb Hct MCV MCH MCHC RDW Plt Count MPV Neut % (Auto) Lymph % (Auto) Caroline % (Auto) Eos % (Auto) Baso % (Auto) Neut # (Auto) Lymph # (Auto) Caroline # (Auto) Eos # (Auto) Baso # (Auto) Nucleated RBC % (a uto) Nucleated RBCs # PT 13.90 SECONDS SEC ONDS (12.1-14.9) INR 1.04 (0.8-1.2) APTT 32.0 SECONDS SECO NDS (23.9-36.7) Sodium Potassium Chloride Carbon Dioxide Anion Gap BUN Creatinine GFR Calculation Glucose Calculated Osmolal ity Calcium Total Bilirubin AST ALT Alkaline Phosphata se Total Protein Albumin Globulin Lipase Ser , Payam i-Qnt Urine Color Urine Appearance Urine pH Ur Specific Gravit y Urine Protein Urine Glucose (UA) Urine Ketones Urine Blood Urine Nitrate Urine Bilirubin Urine Urobilinogen Ur Leukocyte Angle ase Imaging Data^: Other Imaging: Radiologist's impression: [id number] [place], [place] [address]Cjedjfscoh ReportSigned Patient: Abby Bernal #: [id number]: 1990Acct#:[id number]/Sex: 30 / FADM Date: 04/03/21Loc: ERRoom/Bed:Attending Dr: Ordering Provider/Ordering MD: Devang Vargas MD Date of Service: 04/03/21 Procedure(s): US transvaginal [id number] Accession Number(s): [id number] Report Number: [id number] PROCEDURE INFORMATION: Exam: US Pelvis, Transvaginal Exam date and time: 04/03/2021 5:04 PM Age: 30 years old Clinical indication: Pelvic pain; Prior surgery; Surgery date: 6+ months; Surgery type: Cone on cervix; Additional info: Vag bleeding TECHNIQUE: Imaging protocol: Real-time transvaginal pelvic ultrasound with image documentation. Transvaginal imaging was used for better evaluation of the endometrium, adnexa, and/or cervix. COMPARISON: CT abdomen pelvis w con* [id number] 07/10/2019 10:43 PM FINDINGS: Uterus/cervix: The uterus is anteverted and measures approximately 6.0 cm x 3.4 cm x 4.1 cm. Endometrial stripe thickness within normal limits at 0.9 cm. Right adnexa: The right ovary measures 3.2 cm x 2.9 cm on transverse view. Vascular flow is detected in the ovary. Left adnexa: The left ovary measures 3.1 cm x 3.0 cm x 1.7 cm. Vascular flow is detected in the left ovary. Intraperitoneal space: No free fluid identified in the pelvis. US/US transvaginal [id number] IMPRESSION: 1. The uterus and ovaries are sonographically unremarkable. Radiation Dose CTDIVOL = (mGy): DLP = (mGy-cm) Dictated By:Gilson Leone MDSigned By:Gilson Leone MDSigned Date/Time:04/03/212138DD/ 03 Discharge Plan Discharge Patient Disposition: Home Clinical Impression: Abdominal pain Condition: Stable Prescriptions: No Action biotin 5,000 mcg tablet, sublingual 5,000 mcg SUBLINGUAL DAILY RF: 0 acetaminophen 325 mg Tablet 650 mg PO Q6H PRN (Reason: Mild Pain) Qty: 30 RF: 0 Thera 400 mcg Tablet 1 tab PO DAILY Qty: 30 RF: 1 Discharge Orders: Discharge ED (Routine); Ordered 04/03/21 Ordered By: Devang Vargas Discharge Diet: Advance as tolerated Discharge Activity: Resume usual activity Patient Instructions: Abdominal Pain (ED), Opioid Safety Activity Restrictions/Additional Instructions: Please come back to the emergency room if your pain worsens, if any fever or chills, new drainage, or any new or concerning complaints Coding Level of Care Code ED Billing Administrator for Sarah Walsh
[2021-04-03 21:23] VITALS: BP 112/78; PULSE 72; RESP 18; O2SAT 98
== END 2021-04-03 21:25 | disposition home or self-care (01) ==
PROVIDERS: Emergency Provider Emergency Medicine
DX: R10.9 Unspecified abdominal pain (principal); F17.210 Nicotine dependence, cigarettes, uncomplicated
CPT/HCPCS: 76830; 80053; 81003; 83690; 84702; 85025; 85610; 85730; 99283

== ENCOUNTER 2021-11-10 18:23 | Emergency (ER) | payer SELFPAY ==
[2021-11-10 18:35] VITALS: BP 131/88; PULSE 82; RESP 12; TEMP 37.5; O2SAT 99; BMI 25.1
--- NOTE | 2021-11-10 18:41 | USR_ITS ---
PROCEDURE INFORMATION: Exam: US , Transvaginal and US Duplex Artery and Vein, Ovaries, Complete Exam date and time: 11/10/2021 8:08 PM Age: 30 years old Clinical indication: complicated by abdominal or pelvic pain; Right lower quadrant; First trimester (<14 weeks 0 days); Gestational age or lmp: 6 weeks approx; ; Additional info: Possible ectopic, please perform transvaginal US TECHNIQUE: Imaging protocol: Real-time transvaginal obstetrical ultrasound of the maternal pelvis and a first trimester with image documentation. Transvaginal imaging was used for better evaluation of the fetus, adnexa, and/or cervix. Real-time duplex ultrasound scan of the arterial and venous flow of the ovaries with B-mode, color Doppler flow and spectral waveform analysis, Complete Duplex. COMPARISON: US transvaginal [id number] 04/03/2021 8:00 PM FINDINGS: GESTATION: Gestation: No visible intrauterine gestation. MATERNAL: Uterus: Endometrial complex measures 8 mm thickness with relatively homogeneous characteristics. No uterine enlargement or uterine mass. Anteverted position of the uterus. Right adnexa: Maternal right ovary is normal in size. Several small follicles. Ovarian volume 13.2 mL. Unremarkable internal vascularity including normal arterial and venous spectral Doppler waveform pattern. Left adnexa: Maternal left ovary is normal in size. There is a dominant simple follicle which measures 1.6 cm x 1.2 cm x 0.9 cm. Normal internal vascularity including unremarkable arterial and venous spectral Doppler waveform pattern. Intraperitoneal: No pelvic free fluid. US/US OB <=14 wk fetus w transvag IMPRESSION: 1. No visible intrauterine gestation. 2. Diagnostic considerations include early intrauterine gestation too small to visualize, ectopic , or missed . 3. Short interval follow-up is indicated. 4. Negative for ovarian torsion.
--- NOTE | 2021-11-10 19:23 | W.ED.GENADLT ---
HPI - General Adult General: Chief complaint: Abdominal Pain Stated complaint: Ectopic -sent by Lm Time Seen by Provider: 11/10/21 18:57 History of Present Illness: Patient is at 4 weeks 6 days by LMP presenting to the emergency room for complaints of 2 days of right lower quadrant abdominal pain. Patient tells me that she has been having sharp right lower quadrant abdominal pain. Pain is not worse with movement or p.o. intake. Patient denies any new vaginal discharge, vaginal bleeding, urinary complaints, diarrhea melena hematochezia. Patient has any fever or chills, nausea/vomiting or vaginal bleeding. Patient has not establish care with Dr. Amato was told to come to the emergency room for concerns for ectopic by his office. Onset:2 days ago Duration:2 days Location:home Severity:moderate Associated symptoms: Deny chest pain, dyspnea, nausea, rash, palpitations or vomiting Review of Systems Const: Denies: fever(s) or chills Eyes: Denies: change in vision ENMT: Denies: mouth pain Card: Denies: chest pain or palpitations Resp: Denies: dyspnea or non-productive cough GI: Reports: abdominal pain (+RLQ abd pain); Denies: nausea, vomiting or diarrhea : Denies: dysuria Musc: Denies: extremity pain Skin/Breast: Denies: rash or new lesions Neuro: Denies: weakness in extremities Psych: Reports: other (Normal mood) Travon/Lymph: Denies: easy bruising PFSH ED PFSH: Medical History GERD (gastroesophageal reflux disease) Liver laceration, grade II, with open wound into cavity Conservative measures were successful H&H stable Plan to discharge patient home today with specific education materials given to the patient and instructions. Surgical History H/O cone biopsy of cervix History of ERCP History of laparoscopic cholecystectomy (~06/2019) S/P appy Family History Other History of ERCP Denies family history of Anesthesia complication Bleeding disorder Social History Smoking and tobacco status: current every day smoker cigarettes Packs smoked per day: 1 Second hand smoke exposure: Yes Alcohol intake: current Alcohol intake frequency: holidays/special occasions only Adopted: No Caregiver/support person: Yes Lives independently: Yes Household members: family Marital status: Single Current gender identity: Female Lakeisha/Scientology: Yazdanism Special lakeisha needs: No Physical Exam Const: COMMON NORMALS: alert HENMT: COMMON NORMALS: atraumatic HEAD & SCALP: atraumatic MOUTH: moist mucous membranes not abnormal Eye: COMMON NORMALS: EOMs intact bilaterally and conjunctivae normal CONJUNCTIVA: Yes conjunctivae normal Neck/C-Spine: COMMON NORMALS: full ROM and supple Resp: COMMON NORMALS: normal respiratory effort and clear to auscultation bilaterally AUSCULTATION: clear to auscultation bilaterally Cardio: COMMON NORMALS: regular rate RATE: regular rate GI: COMMON NORMALS: Soft to palpation PALPATION: Yes Soft to palpation OTHER: +mild RLQ focal TTP. NO guarding rebound, guarding, rigidity. No CVA tenderness to percussion. Neg Gilliam/Neg McBurney's point tenderness, no suprabupic tenderness to palpation. Extremity: COMMON NORMALS: full ROM Neuro: SENSORIUM/ORIENTATION: Yes alert MOTOR EXAM: No Abnormal motor strength present and Other motor observations present (no focal motor deficits) Psych: COMMON NORMALS: speech normal SPEECH: Yes normal speech MOOD & AFFECT: Yes euthymic mood Course Vital Signs: Vital signs: Vital Signs Temperature 99.5 F 11/10/21 18:35 Pulse Rate 86 11/10/21 19:27 Respiratory Rate 16 11/10/21 19:27 Blood Pressure 118/81 11/10/21 19:27 Pulse Oximetry 100 11/10/21 19:27 MDM - General Adult Medical Decision Making 30-year-old female at 4 weeks 6 days by LMP, hx of prior appendectomy presenting to the emergency room 2 days of RLQ abdl pain. Exam, patient is hemodynamically stable with mild tenderness palpation in lower quadrant. No CVA tenderness. US inconclusive. Patient appears to be stable similar to baseline. Patient has no complaints of vaginal bleeding. hCG of 542 today. Ultrasound negative for any acute findings at this time. I have given patient strict return precautions in the next 48 to 72 hours to the emergency room or OB provider for repeat beta-hCG. I have given patient follow up with our caseworker intake to be seen by Dr. Amato to establish care and for serial HCG followup. Patient aware of a call from our caseworker intake to schedule for appointment(s) and verbalizes understanding of the importance of following up. Rx tylenol PRN pain Disposition: Discharge. Patient counseled regarding diagnostic impression, treatment plan. Patient given ED strict return precautions to return for continuation, worsening, or development of new symptoms. Instructed to f/u w/ OB or come back to the ER for repeat BHCG in 2-3 days. Patient verbalized understanding. Lab Data : 11/10/21 19:20 11/10/21 20:34 Radiology Impressions Obstetrics Ultrasound 11/10/21 18:41 IMPRESSION: 1. No visible intrauterine gestation. 2. Diagnostic considerations include early intrauterine gestation too small to visualize, ectopic , or missed . 3. Short interval follow-up is indicated. 4. Negative for ovarian torsion. Laboratory Results WBC 9.8 10^3/uL (4.0-10.0) 11/10/21 19: RBC 3.63 10^6/uL (4.1-5.3) L 11/10/21 19:20 Hgb 11.3 g/dL (11.5-15.3) L 11/10/21 19:20 Hct 33.4 % (37.0-47.0) L 11/10/21 19:20 MCV 92.0 fl (81-99) 11/10/21 19:20 MCH 31.1 pg (28.0-34.0) 11/10/21 19:20 MCHC 33.8 g/dL (30.0-36.0) 11/10/21 19:20 RDW 12.7 % (12.1-15.1) 11/10/21 19:20 Plt Count 262 10^3/cmm (130-400) 11/10/21 19:20 MPV 9.7 fL (7.4-10.4) 11/10/21 19:20 Neut % (Auto) 59.9 % 11/10/21 19:20 Lymph % (Auto) 31.3 % 11/10/21 19:20 Potter % (Auto) 7.1 % 11/10/21 19:20 Eos % (Auto) 0.9 % 11/10/21 19:20 Baso % (Auto) 0.5 % 05/16/22 19:20 Neut # (Auto) 5.87 10^3/uL (1.8-7.7) 11/10/21 19:20 Lymph # (Auto) 3.1 10^3/uL (0.8-4.8) 11/10/21 19:20 Potter # (Auto) 0.7 10^3/uL (0.2-0.9) 11/10/21 19:20 Eos # (Auto) 0.1 10^3/uL (0.0-0.8) 11/10/21 19:20 Baso # (Auto) 0.1 10^3/uL (0.0-0.1) 11/10/21 19:20 Nucleated RBC % (auto) 0 % 11/10/21 19:20 Nucleated RBCs # 0.0 /100WBC 11/10/21 19:20 PT 14.50 SECONDS (12.1-14.9) 11/10/21 20:34 INR 1.10 (0.8-1.2) 11/10/21 20:34 APTT 31.9 SECONDS (23.9-36.7) 11/10/21 20:34 Sodium 136 mmol/L (136-145) 11/10/21 20:34 Potassium 3.6 mmol/L (3.5-5.1) 11/10/21 20:34 Chloride 101 mmol/L (98-107) 11/10/21 20:34 Carbon Dioxide 24 mmol/L (22-29) 11/10/21 20:34 Anion Gap 14.6 (5-19) 11/10/21 20:34 BUN 7 mg/dL (6-20) 11/10/21 20:34 Creatinine 0.6 mg/dL (0.5-0.9) 11/10/21 20:34 GFR Calculation 118.2 mL/min (90-130) 11/10/21 20:34 Glucose 83 mg/dL (65-115) 11/10/21 20:34 Calculated Osmolality 279 mOsm/kg (285-295) L 11/10/21 20:34 Calcium 8.6 mg/dL (8.5-10.5) 11/10/21 20:34 Total Bilirubin 0.2 mg/dL (0.15-1.2) 11/10/21 20:34 AST 14 U/L (0-32) 11/10/21 20:34 ALT 17 U/L (0-33) 11/10/21 20:34 Alkaline Phosphatase 43 IU/L (35-105) 11/10/21 20:34 C-Reactive Protein 3.0 mg/L (0.0-4.9) 11/10/21 20:34 Total Protein 6.8 g/dL (6.6-8.7) 11/10/21 20:34 Albumin 4.5 g/dL (3.5-5.2) 11/10/21 20:34 Globulin 2.3 g/dL (1.3-4.6) 11/10/21 20:34 Lipase 19 U/L (13-60) 11/10/21 20:34 Ser , Semi-Qnt 542.80 mIU/mL 11/10/21 20:34 Urine Color Yellow (Yellow) 11/10/21 19:20 Urine Appearance Clear (CLEAR) 11/10/21 19:20 Urine pH 6.5 (5-7) 11/10/21 19:20 Ur Specific Doon 1.010 (1.005-1.030) 11/10/21 19:20 Urine Protein Neg (Negative) 11/10/21 19:20 Urine Glucose (UA) Norm (Normal) 11/10/21 19:20 Urine Ketones Negative (Negative) 11/10/21 19:20 Urine Blood Neg (Negative) 11/10/21 19:20 Urine Nitrate Negative (Negative) 11/10/21 19:20 Urine Bilirubin Neg (Negative) 11/10/21 19:20 Urine Urobilinogen Norm mg/dL (Negative) 11/10/21 19:20 Ur Leukocyte Esterase Negative (Negative) 11/10/21 19:20 Blood Type O Positive 11/10/21 20:34 Rho(D) Type Positive 11/10/21 20:34 Antibody Screen Negative 11/10/21 20:34 Imaging Data Other Imaging: Radiologist's impression: [address] [place] [address] Ultrasound Report Signed Patient: Abby Bernal Unit #: [id number] : 1990 Age/Sex: 30 / F ADM Date: 11/10/21 Loc: ER Room/Bed: Attending Dr: Ordering Provider/Ordering MD: Devang Vargas MD Date of Service: 11/10/21 Procedure(s): US OB <=14 wk fetus w transvag Accession Number(s): [id number] Report Number: [id number] PROCEDURE INFORMATION: Exam: US , Transvaginal and US Duplex Artery and Vein, Ovaries, Complete Exam date and time: 11/10/2021 8:08 PM Age: 30 years old Clinical indication: complicated by abdominal or pelvic pain; Right lower quadrant; First trimester (<14 weeks 0 days); Gestational age or lmp: 6 weeks approx; ; Additional info: Possible ectopic, please perform transvaginal US TECHNIQUE: Imaging protocol: Real-time transvaginal obstetrical ultrasound of the maternal pelvis and a first trimester with image documentation. Transvaginal imaging was used for better evaluation of the fetus, adnexa, and/or cervix. Real-time duplex ultrasound scan of the arterial and venous flow of the ovaries with B-mode, color Doppler flow and spectral waveform analysis, Complete Duplex. COMPARISON: US transvaginal [id number] 04/03/2021 8:00 PM FINDINGS: GESTATION: Gestation: No visible intrauterine gestation. MATERNAL: Uterus: Endometrial complex measures 8 mm thickness with relatively homogeneous characteristics. No uterine enlargement or uterine mass. Anteverted position of the uterus. Right adnexa: Maternal right ovary is normal in size. Several small follicles. Ovarian volume 13.2 mL. Unremarkable internal vascularity including normal arterial and venous spectral Doppler waveform pattern. Left adnexa: Maternal left ovary is normal in size. There is a dominant simple follicle which measures 1.6 cm x 1.2 cm x 0.9 cm. Normal internal vascularity including unremarkable arterial and venous spectral Doppler waveform pattern. Intraperitoneal: No pelvic free fluid. US/US OB <=14 wk fetus w transvag IMPRESSION: 1. No visible intrauterine gestation. 2. Diagnostic considerations include early intrauterine gestation too small to visualize, ectopic , or missed . 3. Short interval follow-up is indicated. 4. Negative for ovarian torsion. ? Dictated By: Bryan Do Signed By: Bryan Do Signed Date/Time: 11/10/212135 DD/ 07 Discharge Plan Discharge Patient Disposition: Home Clinical Impression: Lower abdominal pain Condition: Stable Prescriptions: No Action acetaminophen 325 mg Tablet 650 mg PO Q6H PRN (Reason: Mild Pain) Qty: 30 0RF multivitamin with folic acid [Thera] 400 mcg Tablet 1 tab PO DAILY Qty: 30 1RF Discharge Orders: Discharge ED (Routine); Ordered 11/10/21 Ordered By: Devang Vargas Discharge Diet: Advance as tolerated Discharge Activity: Increase activity as tolerated Patient Instructions: Abdominal Pain (ED) Activity Restrictions/Additional Instructions: Please come back to the emergency room with 2 to 3 days for repeat beta hCGs. He can either come back to the emergency room follow-up with your OB provider. Please come back to the emergency room any fever/chills, lower abdominal pain, nausea/vomiting, vaginal discharge or bleeding, or any new or concerning complaints. Stand Alone Forms: Work/School Release Coding Level of Care Code ED Electronic Equipment Maint Tech for Garyg Fwd Exam Comprehensive
[2021-11-10 19:27] VITALS: BP 118/81; PULSE 86; RESP 16; O2SAT 100
[2021-11-10 19:35] LABS: Basophils # 0.1 10^3/uL (0.0-0.1); Basophils % 0.5 %; Eosinophils # 0.1 10^3/uL (0.0-0.8); Eosinophils % 0.9 %; Hematocrit 33.4 % (37.0-47.0); Hemoglobin 11.3 g/dL (11.5-15.3); Lymphocytes # 3.1 10^3/uL (0.8-4.8); Lymphocytes % 31.3 %; Mean Corpuscular HGB Conc 33.8 g/dL (30.0-36.0); Mean Corpuscular Hemoglobin 31.1 pg (28.0-34.0); Mean Platelet Volume 9.7 fL (7.4-10.4); Monocytes # 0.7 10^3/uL (0.2-0.9); Monocytes % 7.1 %; Neutrophils # 5.87 10^3/uL (1.8-7.7); Neutrophils % 59.9 %; Nucleated Red Blood Cells % 0 %; Platelet Count 262 10^3/cmm (130-400); Red Blood Count 3.63 10^6/uL (4.1-5.3); Red Cell Distribution Width 12.7 % (12.1-15.1); White Blood Count 9.8 10^3/uL (4.0-10.0)
[2021-11-10 19:44] LABS: Add Urine Microscopic? NO; Charge for UA Resulting for Rev
[2021-11-10 19:47] LABS: Bilirubin Urine Neg (Negative); Blood Urine Neg (Negative); Glucose Urine UA Norm (Normal); Ketones Urine Negative (Negative); Leukocyte Esterase Urine Negative (Negative); Nitrate Urine Negative (Negative); Protein Urine Neg (Negative); Urine Appearance Clear (CLEAR); Urine Color Yellow (Yellow); Urobilinogen Urine Norm (Negative); pH Urine 6.5 (5-7)
[2021-11-10 20:59] LABS: Partial Thromboplastin Time 31.9 SECONDS (23.9-36.7)
[2021-11-10 21:18] LABS: Alanine Aminotransferase 17 U/L (0-33); Albumin Level 4.5 g/dL (3.5-5.2); Alkaline Phosphatase 43 IU/L (35-105); Anion Gap 14.6 (5-19); Aspartate Amino Transferase 14 U/L (0-32); Blood Urea Nitrogen 7 mg/dL (6-20); Calcium 8.6 mg/dL (8.5-10.5); Carbon Dioxide 24 mmol/L (22-29); Chloride 101 mmol/L (98-107); Globulin 2.3 g/dL (1.3-4.6); Glomerular Filtration Rate 118.2 mL/min (90-130); Glucose 83 mg/dL (65-115); Lipase 19 U/L (13-60); Osmolality Calculated 279 mOsm/kg (285-295); Potassium 3.6 mmol/L (3.5-5.1); Sodium 136 mmol/L (136-145); Total Bilirubin 0.2 mg/dL (0.15-1.2); Total Protein 6.8 g/dL (6.6-8.7)
[2021-11-10 22:05] VITALS: BP 138/85; PULSE 98; RESP 18; O2SAT 98
--- NOTE | 2021-11-12 08:49 | DCPLANNER ---
Addendum entered by Porsha Hinojosa 11/20/21 16:29: Patient had a follow up appointment scheduled for 11.13.21 with [facility] - patient did attend appointment. Original Note: ar manager had message to schedule a follow up appointment for [facility] with [facility]. ar manager sent patients information to the front office staff at [facility]. Patients information will be printed and reviewed. Clinic will call patient with appointment information.
== END 2021-11-10 22:07 | disposition home or self-care (01) ==
PROVIDERS: Emergency Provider Emergency Medicine
DX: R10.31 Right lower quadrant pain (principal)
CPT/HCPCS: 36415; 76801; 76817; 80053; 81003; 83690; 84702; 85025; 85610; 85730; 86140; 86850; 86900; 99283

== ENCOUNTER → 2021-11-13 14:41 | Outpatient (BNVA) | payer SELFPAY | PROVIDERS: Referring Provider Emergency Medicine; Visit Provider Obstetrics & Gynecology | DX: O03.9 Complete or unspecified spontaneous abortion without complication (principal) | CPT/HCPCS: 84702 ==

== ENCOUNTER → 2021-11-27 09:32 | Outpatient (BNVA) | payer SELFPAY | PROVIDERS: Visit Provider Obstetrics & Gynecology | DX: O03.9 Complete or unspecified spontaneous abortion without complication (principal); Z3A.00 Weeks of gestation of pregnancy not specified | CPT/HCPCS: 84702 ==

== ENCOUNTER 2021-12-03 17:39 | Emergency (ER) | payer SELFPAY ==
[2021-12-03 17:59] VITALS: BP 148/98; PULSE 106; RESP 14; TEMP 37.2; O2SAT 99; BMI 25.1
--- NOTE | 2021-12-03 18:06 | USR_ITS ---
PROCEDURE INFORMATION: Exam: US First Trimester, Transabdominal and US , Transvaginal Exam date and time: 12/03/2021 8:01 PM Age: 30 years old Clinical indication: Abnormal findings; Abnormal lab test; Other; Hcg has risen since miscarriage. ; Additional info: Possible ectopic TECHNIQUE: Imaging protocol: Real-time transabdominal obstetrical ultrasound of the maternal pelvis and a first trimester , less than 14 weeks 0 days, with image documentation. Transvaginal imaging was used for better evaluation of the fetus, adnexa, and/or cervix. COMPARISON: US OB <=14 wk fetus w transvag 11/10/2021 8:08 PM FINDINGS: Gestation: No findings of intrauterine gestation. MATERNAL: Uterus: Unremarkable. Cervix: Unremarkable. Right ovary/adnexa: Right ovary measures 3.9 x 2.1 x 2.2 cm and shows normal Doppler signal. No evident adnexal abnormality. Left ovary/adnexa: Left ovary measures 3.4 x 1.7 x 2.4 cm and contains a cystic finding likely representing corpus luteum that has decreased in size from prior study. Normal Doppler signal. No evident adnexal abnormality. Intraperitoneal space: No intraperitoneal free fluid. US/US OB <=14 wk fetus w transvag IMPRESSION: No acute findings.
--- NOTE | 2021-12-03 18:30 | ED_ITS ---
HPI - General Adult General: Chief complaint: General Medical Stated complaint: says shes 3 weeks into miscarrage, Abnormal LAbs Time Seen by Provider: 12/03/21 18:07 History of Present Illness: Patient is a 30-year-old female G3, P1 at 10 weeks by LMP presenting to the emergency room requesting for ultrasound at the request with Dr. Rasmussen. Patient tells me that she was supposed to schedule for an ultrasound to follow-up on her current but however that was unsuccessful. About 3 weeks ago, patient initially presented to the emergency room with lower quad abdominal pain. Patient was at that time was found to have a possible threatened miscarriage. Since then, patient has been following her beta hCGs. Patient tells me that her hCG has went down and then came back up. Patient again was requested to come to the emergency room for an ultrasound. Patient tells me last time she had spotting was about 2 days ago. Patient also report ongoing pelvic transfer denies any regular contractions. Patient denies any focal abdominal pain, nausea/vomiting, fever/chills, new vaginal discharge, symptoms, melena/hematochezia. Onset: chronic Duration:ongoing Location:home Severity:moderate Associated symptoms: Deny chest pain, dyspnea, nausea, rash, palpitations or vomiting Review of Systems Const: Denies: fever(s) or chills Eyes: Denies: change in vision ENMT: Denies: mouth pain Card: Denies: chest pain or palpitations Resp: Denies: dyspnea or non-productive cough GI: Denies: abdominal pain, nausea, vomiting or diarrhea : Reports: other (+intermittent spotting and pelvic cramps); Denies: dysuria Musc: Denies: extremity pain Skin/Breast: Denies: rash or new lesions Neuro: Denies: weakness in extremities Psych: Reports: other (Normal mood) Travon/Lymph: Denies: easy bruising PFSH ED PFSH: Medical History GERD (gastroesophageal reflux disease) Liver laceration, grade II, with open wound into cavity Conservative measures were successful H&H stable Plan to discharge patient home today with specific education materials given to the patient and instructions. No pertinent past medical history neghx: htn, dm, thyroid, dvt/pe PCP: none Surgical History H/O cone biopsy of cervix History of ERCP History of laparoscopic cholecystectomy (~06/2019) S/P appy Family History Mother Diabetes Grandmother Diabetes maternal Other History of ERCP Denies family history of Cervical cancer Colon cancer Ovarian cancer Prostate cancer Heart disease Hyperlipidemia Breast cancer Anesthesia complication Bleeding disorder Hypertension Uterine cancer Thyroid disease Stroke Physical Exam Const: COMMON NORMALS: alert HENMT: COMMON NORMALS: atraumatic HEAD & SCALP: atraumatic MOUTH: moist mucous membranes not abnormal Eye: COMMON NORMALS: EOMs intact bilaterally and conjunctivae normal CONJUNCTIVA: Yes conjunctivae normal Neck/C-Spine: COMMON NORMALS: full ROM and supple Resp: COMMON NORMALS: normal respiratory effort and clear to auscultation bilaterally AUSCULTATION: clear to auscultation bilaterally Cardio: COMMON NORMALS: regular rate RATE: regular rate GI: COMMON NORMALS: Soft to palpation and non-tender PALPATION: Yes Soft to palpation Extremity: COMMON NORMALS: full ROM Neuro: SENSORIUM/ORIENTATION: Yes alert MOTOR EXAM: No Abnormal motor strength present and Other motor observations present (no focal motor deficits) Psych: COMMON NORMALS: speech normal SPEECH: Yes normal speech MOOD & AFFECT: Yes euthymic mood Course Vital Signs: Vital signs: Vital Signs Temperature 99.0 F 12/03/21 22:15 Pulse Rate 87 12/03/21 22:15 Respiratory Rate 16 12/03/21 22:15 Blood Pressure 127/75 12/03/21 22:15 Pulse Oximetry 99 12/03/21 22:15 MDM - General Adult Medical Decision Making 50-year-old female presenting to the emergency room requesting for an ultrasound. Patient declined client pelvic exam today. Patient is hemodynamically stable. H&H appears to be stable. ABO Rh+. Ultrasound showed no IUP at this time. Given elevated beta hCG, this is a of unknown location. Patient is continues to be hemodynamically stable. Patient does not appear to have any significant signs of bleeding. I have given patient follow up with our case investigator to be seen by Dr. Wiley for close outpatient followup. Patient aware of a call from our case investigator to schedule for appointment(s) and verbalizes understanding of the importance of following up. Disposition: Discharge. Patient counseled regarding diagnostic impression, treatment plan. Patient given ED strict return precautions to return for continuation, worsening, or development of new symptoms. Instructed to f/u w/ Dr. Rasmussen regarding symptoms today. Patient verbalized understanding. Lab Data : 12/03/21 19:25 12/03/21 19:25 Radiology Impressions Obstetrics Ultrasound 12/03/21 18:06 IMPRESSION: No acute findings. Laboratory Results WBC 8.4 10^3/uL (4.0-10.0) 12/03/21 19:25 RBC 3.78 10^6/uL (4.1-5.3) L 12/03/21 19:25 Hgb 11.7 g/dL (11.5-15.3) 12/03/21: Hct 34.4 % (37.0-47.0) L 12/03/21: MCV 91.0 fl (81-99) 12/03/21: MCH 31.0 pg (28.0-34.0) 12/03/21: MCHC 34.0 g/dL (30.0-36.0) 12/03/21: RDW 12.6 % (12.1-15.1) 12/03/21: Plt Count 262 10^3/cmm (130-400) 12/03/21: MPV 9.5 fL (7.4-10.4) 12/03/21 19:25 Neut % (Auto) 58.5 % 12/03/21 19: Lymph % (Auto) 32.1 % 12/03/21 19:25 Boyd % (Auto) 7.0 % 12/03/21 19:25 Eos % (Auto) 1.5 % 12/03/21:25 Baso % (Auto) 0.7 % 12/03/21: Neut # (Auto) 4.91 10^3/uL (1.8-7.7) 12/03/21 19: Lymph # (Auto) 2.7 10^3/uL (0.8-4.8) 12/03/21 19:25 Boyd # (Auto) 0.6 10^3/uL (0.2-0.9) 12/03/21 19:25 Eos # (Auto) 0.1 10^3/uL (0.0-0.8) 12/03/21 19:25 Baso # (Auto) 0.1 10^3/uL (0.0-0.1) 12/03/21 19:25 Nucleated RBC % (auto) 0 % 12/03/21 19:25 Nucleated RBCs # 0.0 /100WBC 12/03/21 19:25 Sodium 137 mmol/L (136-145) 12/03/21 19:25 Potassium 3.8 mmol/L (3.5-5.1) 12/03/21 19:25 Chloride 100 mmol/L (98-107) 12/03/21 19:25 Carbon Dioxide 27 mmol/L (22-29) 12/03/21:25 Anion Gap 13.8 (5-19) 12/03/21 19:25 BUN 12 mg/dL (6-20) 12/03/21 19:25 Creatinine 0.7 mg/dL (0.5-0.9) 12/03/21 19:25 GFR Calculation 98.9 mL/min (90-130) 12/03/21 19:25 Glucose 98 mg/dL (65-115) 12/03/21 19:25 Calculated Osmolality 284 mOsm/kg (285-295) L 12/03/21:25 Calcium 9.3 mg/dL (8.5-10.5) 12/03/21 19:25 Total Bilirubin 0.2 mg/dL (0.15-1.2) 12/03/21 19:25 AST 15 U/L (0-32) 12/03/21 19:25 ALT 14 U/L (0-33) 12/03/21 19:25 Alkaline Phosphatase 52 IU/L (35-105) 12/03/21 19:25 Total Protein 7.3 g/dL (6.6-8.7) 12/03/21 19:25 Albumin 4.6 g/dL (3.5-5.2) 12/03/21 19:25 Globulin 2.7 g/dL (1.3-4.6) 12/03/21 19:25 Lipase 27 U/L (13-60) 12/03/21 19:25 Ser , Semi-Qnt 441.90 mIU/mL 12/03/21 19:25 Urine Color Yellow (Yellow) 12/03/21 Unknown Urine Appearance Clear (CLEAR) 12/03/21 Unknown Urine pH 7 (5-7) 12/03/21 Unknown Ur Specific Somers 1.005 (1.005-1.030) 12/03/21 Unknown Urine Protein Neg (Negative) 12/03/21 Unknown Urine Glucose (UA) Norm (Normal) 12/03/21 Unknown Urine Ketones Negative (Negative) 12/03/21 Unknown Urine Blood Neg (Negative) 12/03/21 Unknown Urine Nitrate Negative (Negative) 12/03/21 Unknown Urine Bilirubin Neg (Negative) 12/03/21 Unknown Urine Urobilinogen Norm mg/dL (Negative) 12/03/21 Unknown Ur Leukocyte Esterase Negative (Negative) 12/03/21 Unknown Imaging Data Other Imaging: Radiologist's impression: [address] [address] Ultrasound Report Signed Patient: Abby Bernal Unit #: [id number] : 1990 Age/Sex: 30 / F ADM Date: 12/03/21 Loc: ER Room/Bed: Attending Dr: Ordering Provider/Ordering MD: Devang Vargas MD Date of Service: 12/03/21 Procedure(s): US OB <=14 wk fetus w transvag Accession Number(s): [id number] Report Number: [id number] PROCEDURE INFORMATION: Exam: US First Trimester, Transabdominal and US , Transvaginal Exam date and time: 12/03/2021 8:01 PM Age: 30 years old Clinical indication: Abnormal findings; Abnormal lab test; Other; Hcg has risen since miscarriage. ; Additional info: Possible ectopic TECHNIQUE: Imaging protocol: Real-time transabdominal obstetrical ultrasound of the maternal pelvis and a first trimester , less than 14 weeks 0 days, with image documentation. Transvaginal imaging was used for better evaluation of the fetus, adnexa, and/or cervix. COMPARISON: US OB <=14 wk fetus w transvag 11/10/2021 8:08 PM FINDINGS: Gestation: No findings of intrauterine gestation. MATERNAL: Uterus: Unremarkable. Cervix: Unremarkable. Right ovary/adnexa: Right ovary measures 3.9 x 2.1 x 2.2 cm and shows normal Doppler signal.? No evident adnexal abnormality. Left ovary/adnexa: Left ovary measures 3.4 x 1.7 x 2.4 cm and contains a cystic finding likely representing corpus luteum that has decreased in size from prior study. Normal Doppler signal. No evident adnexal abnormality. Intraperitoneal space: No intraperitoneal free fluid. US/US OB <=14 wk fetus w transvag IMPRESSION: No acute findings. ? Dictated By: Raymundo Castellanos MD Signed By: Raymundo Castellanos MD Signed Date/Time: 12/03/212145 DD/ 00 Discharge Plan Discharge Patient Disposition: Home Clinical Impression: Vaginal bleeding, , location unknown Condition: Stable Discharge Orders: Discharge ED (Routine); Ordered 12/03/21 Ordered By: Devang Vargas Discharge Diet: Advance as tolerated Discharge Activity: Increase activity as tolerated Patient Instructions: Miscarriage (ED) Activity Restrictions/Additional Instructions: Our case investigator will have you follow-up with Dr. Wiley in the next few days. You would be expected to have a phone call with our case investigator who will put you on the schedule. You can expect a call from us in the next 2-3 days. If you don't hear from us, call us back in the emergency room at [phone]. Please come back to the emergency room you have noticed any significant bleeding or cramps or regular contractions or any new or concerning complaints. Coding Level of Care Code ED Clinical Systems Educator for Sarah Fwmark Exam Comprehensive
[2021-12-03 19:23] LABS: Add Urine Microscopic? NO; Charge for UA Resulting for Rev
[2021-12-03 19:27] LABS: Bilirubin Urine Neg (Negative); Blood Urine Neg (Negative); Glucose Urine UA Norm (Normal); Ketones Urine Negative (Negative); Leukocyte Esterase Urine Negative (Negative); Nitrate Urine Negative (Negative); Protein Urine Neg (Negative); Specific Gravity, Urine 1.005 (1.005-1.030); Urine Appearance Clear (CLEAR); Urine Color Yellow (Yellow); Urobilinogen Urine Norm (Negative); pH Urine 7 (5-7)
[2021-12-03 19:34] LABS: Basophils # 0.1 10^3/uL (0.0-0.1); Basophils % 0.7 %; Eosinophils # 0.1 10^3/uL (0.0-0.8); Eosinophils % 1.5 %; Hematocrit 34.4 % (37.0-47.0); Hemoglobin 11.7 g/dL (11.5-15.3); Lymphocytes # 2.7 10^3/uL (0.8-4.8); Lymphocytes % 32.1 %; Mean Platelet Volume 9.5 fL (7.4-10.4); Monocytes # 0.6 10^3/uL (0.2-0.9); Neutrophils # 4.91 10^3/uL (1.8-7.7); Neutrophils % 58.5 %; Nucleated Red Blood Cells % 0 %; Platelet Count 262 10^3/cmm (130-400); Red Blood Count 3.78 10^6/uL (4.1-5.3); Red Cell Distribution Width 12.6 % (12.1-15.1); White Blood Count 8.4 10^3/uL (4.0-10.0)
[2021-12-03 20:02] LABS: Alanine Aminotransferase 14 U/L (0-33); Albumin Level 4.6 g/dL (3.5-5.2); Alkaline Phosphatase 52 IU/L (35-105); Anion Gap 13.8 (5-19); Aspartate Amino Transferase 15 U/L (0-32); Blood Urea Nitrogen 12 mg/dL (6-20); Calcium 9.3 mg/dL (8.5-10.5); Carbon Dioxide 27 mmol/L (22-29); Chloride 100 mmol/L (98-107); Globulin 2.7 g/dL (1.3-4.6); Glomerular Filtration Rate 98.9 mL/min (90-130); Glucose 98 mg/dL (65-115); Lipase 27 U/L (13-60); Osmolality Calculated 284 mOsm/kg (285-295); Potassium 3.8 mmol/L (3.5-5.1); Sodium 137 mmol/L (136-145); Total Bilirubin 0.2 mg/dL (0.15-1.2); Total Protein 7.3 g/dL (6.6-8.7)
[2021-12-03 20:32] VITALS: BP 137/78; PULSE 97; RESP 16; TEMP 37.2; O2SAT 99
[2021-12-03 22:15] VITALS: BP 127/75; PULSE 87; RESP 16; TEMP 37.2; O2SAT 99
--- NOTE | 2021-12-04 11:23 | DCPLANNER ---
Addendum entered by Porsha Hinojosa 12/05/21 13:43: grain merchandising manager spoke with Iván at [facility] - was told that patient has followed up with [facility]. Original Note: grain merchandising manager had message to schedule a follow up appointment for patient patient with [facility]. grain merchandising manager sent patients information to the front office staff at [facility]. Patients information will be printed and reviewed. Clinic will call patient with appointment information.
== END 2021-12-03 22:17 | disposition home or self-care (01) ==
PROVIDERS: Emergency Provider Emergency Medicine
DX: O00.90 Unspecified ectopic pregnancy without intrauterine pregnancy (principal); Z3A.00 Weeks of gestation of pregnancy not specified
CPT/HCPCS: 76801; 76817; 80053; 81003; 83690; 84702; 85025; 99283

== ENCOUNTER → 2021-12-05 14:52 | Outpatient (BNVA) | payer SELFPAY | PROVIDERS: Visit Provider Obstetrics & Gynecology | DX: O36.80X0 Pregnancy with inconclusive fetal viability, not applicable or unspecified (principal); Z3A.00 Weeks of gestation of pregnancy not specified | CPT/HCPCS: 84702 ==

== ENCOUNTER → 2021-12-23 13:13 | Outpatient (BNVA) | payer SELFPAY | PROVIDERS: Visit Provider Obstetrics & Gynecology | DX: O03.9 Complete or unspecified spontaneous abortion without complication (principal) | CPT/HCPCS: 84702 ==

== ENCOUNTER 2023-06-20 10:32 | Observation (INO) | payer MEDICAID, SELFPAY ==
[2023-06-20] VITALS (48 sets, daily range): BP systolic 92–120; BP diastolic 48–81; PULSE 56–106; RESP 16–22; TEMP 36.3–36.8; O2SAT 87–100
--- NOTE | 2023-06-20 10:34 | USR_ITS ---
PROCEDURE INFORMATION: Exam: US , Transvaginal Exam date and time: 06/20/2023 11:31 AM Age: 32 years old Clinical indication: complicated by abdominal or pelvic pain; Right lower quadrant; First trimester (<14 weeks 0 days); Gestational age or lmp: 8w4d; ; Additional info: Miscarriage TECHNIQUE: Imaging protocol: Real-time transvaginal obstetrical ultrasound of the maternal pelvis with image documentation. Transvaginal imaging was used for better evaluation of the fetus, adnexa, and/or cervix. Total images: 411 COMPARISON: US OB <=14 wk fetus w transvag 12/03/2021 8:01 PM FINDINGS: Gestation: Cystic structure in right adnexa consistent with an ectopic with fetus visualized. Positive heart rate of 118 bpm. Conrad-rump length measures 1.93 cm corresponding to an 8 week 3 day gestational age. Adjacent to right ovary, area of ectopic but greatest in the left adnexal area is a heterogeneous area of echogenicity of questionable etiology but given above findings may represent blood clot or possible omentum or infiltrative mass. heart rate: 118 bpm BIOMETRY: Gestational age (AUA): 8 w 3 d Conrad-Rump length (CRL): 18.5 mm. EGA (CRL) is 8 w 3 d MATERNAL: Uterus: Anteverted uterus. Endometrial thickness measured at 1.2 cm. Right ovary/adnexa: Right ovary appears unremarkable. Normal vascularity is demonstrated by color Doppler within the right ovary. Normal waveforms are demonstrated within the right ovary. Right ovary measures 2.6 x 2.2 x 3.1 cm giving a volume of 9.4 mL. Left ovary/adnexa: Left ovary not visualized. US/US OB <=14 wk fetus w transvag IMPRESSION: 1. Cystic structure in right adnexa consistent with an ectopic with fetus visualized. Positive heart rate of 118 bpm. Conrad-rump length measures 1.93 cm corresponding to an 8 week 3 day gestational age. 2. Adjacent to right ovary, area of ectopic but greatest in the left adnexal area is a heterogeneous area of echogenicity of questionable etiology but given above findings may represent blood clot or possible omentum or infiltrative mass. 3. Left ovary not visualized.
--- NOTE | 2023-06-20 11:00 | W.ED.ABDPA2 ---
HPI - Abdominal Pain General: Chief Complaint: Abdominal Pain Stated Complaint: abd pain, pt stated miscarraige on wednesday Time Seen by Provider: 06/20/23 10:54 Source: patient Mode of arrival: ambulatory Limitations: no limitations History of Present Illness: 32-year-old female states she had a recent positive test states started having some slight bleeding Wednesday she had no bleeding today but over the last 3 days she has been having increasing suprapubic abdominal pain states pain is sharp in nature has had nausea she denies any vaginal discharge denies any dysuria she had an appendectomy and cholecystectomy. Associated Symptoms: Denies chills, diarrhea, dysuria, fever(s), nausea and vomiting Review of Systems Const: Denies: fever(s), chills, body aches or change in appetite Eyes: Denies: blurry vision or eye discomfort ENMT: Denies: throat pain or dental pain Card: Denies: chest pain Resp: Denies: dyspnea GI: Reports: abdominal pain; Denies: nausea, vomiting or diarrhea : Reports: vaginal bleeding; Denies: dysuria Musc: Denies: neck pain or back pain Skin/Breast: Denies: rash Neuro: Denies: headache(s) PFSH ED PFSH: Medical History GERD (gastroesophageal reflux disease) Liver laceration, grade II, with open wound into cavity Conservative measures were successful H&H stable Plan to discharge patient home today with specific education materials given to the patient and instructions. No pertinent past medical history neghx: htn, dm, thyroid, dvt/pe PCP: none Surgical History History of ERCP S/P appy H/O cone biopsy of cervix History of laparoscopic cholecystectomy (~06/2019) Family History Mother Diabetes Grandmother Diabetes maternal Other History of ERCP Denies family history of Cervical cancer Colon cancer Ovarian cancer Prostate cancer Heart disease Hyperlipidemia Breast cancer Anesthesia complication Bleeding disorder Hypertension Uterine cancer Thyroid disease Stroke Social History Substance/Drug Use: never Do you think of yourself as: Straight/Heterosexual Physical Exam Const: COMMON NORMALS: no acute distress, patient oriented x3 and healthy appearing HENMT: COMMON NORMALS: normocephalic and atraumatic HEAD & SCALP: normocephalic and atraumatic Eye: COMMON NORMALS: conjunctivae normal CONJUNCTIVA: Yes conjunctivae normal Neck/C-Spine: COMMON NORMALS: full ROM and supple Chest: COMMONS NORMALS: normal inspection of the chest Resp: COMMON NORMALS: normal respiratory effort Cardio: COMMON NORMALS: regular rate RATE: regular rate GI: COMMON NORMALS: Normal to inspection, nondistended, normoactive bowel sounds present, Soft to palpation and no masses PALPATION: Yes Soft to palpation OTHER: suprapubic tenderness Extremity: COMMON NORMALS: normal to inspection and full ROM Neuro: COMMON NORMALS: patient oriented x3, moves all extremities and no focal motor deficits Psych: COMMON NORMALS: mental status grossly normal, Normal thought process present and cooperative THOUGHT PROCESS: Normal thought process present Skin: COMMON NORMALS: no rashes or lesions noted and no wounds GENERAL SKIN EXAM: no rashes or lesions noted Course Vital Signs: Vital signs: Vital Signs Temperature 97.4 F L 06/20/23 10:37 Pulse Rate 63 06/20/23 12:04 Respiratory Rate 16 06/20/23 12:04 Blood Pressure 104/73 06/20/23 12:04 Pulse Oximetry 99 06/20/23 12:04 Oxygen Delivery Me thod Room Air 06/20/23 11:12 MDM - Abdominal Pain Medical Decision Making Patient presents here with ectopic patient was seen in the ER by OB Dr. Morillo he is taken patient to the OR at this time. Lab Data I reviewed the patient's lab results. 06/20/23 11:23 06/20/23 11:00 Labs/Radiology: Radiology Impressions Obstetrics Ultrasound 06/20/23 10:34 IMPRESSION: 1. Cystic structure in right adnexa consistent with an ectopic with fetus visualized. Positive heart rate of 118 bpm. [place]-rump length measures 1.93 cm corresponding to an 8 week 3 day gestational age. 2. Adjacent to right ovary, area of ectopic but greatest in the left adnexal area is a heterogeneous area of echogenicity of questionable etiology but given above findings may represent blood clot or possible omentum or infiltrative mass. 3. Left ovary not visualized. ADDENDUM: 06/20/23 1233 THIS REPORT CONTAINS FINDINGS THAT MAY BE CRITICAL TO PATIENT CARE. 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 The findings were acknowledged and understood. Laboratory Results WBC 13.13 10^3/uL (3.29-11.43) H 06/20/23 11:23 Corrected WBC Cancelled 06/20/23 11:00 RBC 3.23 10^6/uL (3.85-5.65) L 06/20/23 11:23 Hgb 9.90 g/dL (11.27-16.99) L 06/20/23 11:23 Hct 29.2 % (36-47) L 06/20/23 11:23 MCV 90.4 fl (85-98) 06/20/23 11:23 MCH 30.7 pg (27-33) 06/20/23 11:23 MCHC 33.9 g/dL (30-55) 06/20/23 11:23 RDW 12.2 % (12.1-15.1) 06/20/23 11:23 Plt Count 286 10^3/cmm (157-399) 06/20/23 11:23 MPV 9.5 fL (7.4-10.4) 06/20/23 11:23 Gran % Cancelled 06/20/23 11:00 Neut % (Auto) 83.5 % 06/20/23 11:23 Lymph % (Auto) 10.5 % 06/20/23 11:23 [place] % (Auto) 4.5 % 06/20/23 11:23 Eos % (Auto) 0.7 % 06/20/23 11:23 Baso % (Auto) 0.3 % 06/20/23 11:23 Neut # (Auto) 10.97 10^3/uL (1.8-7.7) H 06/20/23 11:23 Lymph # (Auto) 1.4 10^3/uL (0.8-4.8) 06/20/23 11:23 [place] # (Auto) 0.6 10^3/uL (0.2-0.9) 06/20/23 11:23 Eos # (Auto) 0.1 10^3/uL (0.0-0.8) 06/20/23 11:23 Baso # (Auto) 0.0 10^3/uL (0.0-0.1) 06/20/23 11:23 Absolute Gran (auto) Cancelled 06/20/23 11:00 Nucleated RBC % (auto) 0 % 06/20/23 11:23 Nucleated RBCs # 0.0 /100WBC 06/20/23 11:23 Sodium Cancelled 06/20/23 11:00 Potassium Cancelled 06/20/23 11:00 Chloride Cancelled 06/20/23 11:00 Carbon Dioxide Cancelled 06/20/23 11:00 Anion Gap Cancelled 06/20/23 11:00 BUN Cancelled 06/20/23 11:00 Creatinine Cancelled 06/20/23 11:00 GFR Calculation Cancelled 06/20/23 11:00 Glucose Cancelled 06/20/23 11:00 Calculated Osmolality Cancelled 06/20/23 11:00 Calcium Cancelled 06/20/23 11:00 Total Bilirubin Cancelled 06/20/23 11:00 AST Cancelled 06/20/23 11:00 ALT Cancelled 06/20/23 11:00 Alkaline Phosphatase Cancelled 06/20/23 11:00 Total Protein Cancelled 06/20/23 11:00 Albumin Cancelled 06/20/23 11:00 Globulin Cancelled 06/20/23 11:00 Lipase Cancelled 06/20/23 11:00 Ser , Semi-Qnt Cancelled 06/20/23 11:00 All radiology interpretation(s) finalized by discharge Discharge Plan Discharge Condition: Stable Prescriptions: No Action No Known Home Medications Coding Level of Care Code ED Certified Neurodiagnostic Technologist for Chg Jillian
[2023-06-20] MEDS: sodium chloride 0.9% 1,000 ML 999 ML IV (11:07)
[2023-06-20] MEDS: ondansetron 2 mg/ML SDV 2 mL 4 MG IVP (11:08)
[2023-06-20] MEDS: morphine 4 mg/mL SDV 1 mL IVP (11:10)
[2023-06-20 11:30] LABS: Basophils % 0.3 %; Eosinophils # 0.1 10^3/uL (0.0-0.8); Eosinophils % 0.7 %; Hematocrit 29.2 % (36-47); Lymphocytes # 1.4 10^3/uL (0.8-4.8); Lymphocytes % 10.5 %; Mean Corpuscular HGB Conc 33.9 g/dL (30-55); Mean Corpuscular Hemoglobin 30.7 pg (27-33); Mean Corpuscular Volume 90.4 fl (85-98); Mean Platelet Volume 9.5 fL (7.4-10.4); Monocytes # 0.6 10^3/uL (0.2-0.9); Monocytes % 4.5 %; Neutrophils # 10.97 10^3/uL (1.8-7.7); Neutrophils % 83.5 %; Nucleated Red Blood Cells % 0 %; Platelet Count 286 10^3/cmm (157-399); Red Blood Count 3.23 10^6/uL (3.85-5.65); Red Cell Distribution Width 12.2 % (12.1-15.1); White Blood Count 13.13 10^3/uL (3.29-11.43)
--- NOTE | 2023-06-20 13:48 | P.ANESASSM_ITS ---
Pre-Anesthetic Assessment Height/Weight: Height 1.8 m Weight 83.915 kg Temp Pulse Resp BP Pulse Ox O2 Del Method 97.4 F L 83 16 104/67 99 Room Air 06/20/23 10:37 06/20/23 13:41 06/20/23 13:41 06/20/23 13:41 06/20/23 13:41 06/20/23 11:12 Laparoscopic salpingectomy for ectopic Familial anesthetic complications: Noen Was Beta Taty taken within 24 hours: N/A Was Clonidine taken within 24 hours: N/A Last intake: > 8hrs hrs (last night) iced tea this mornign at 0800 no cream Social Tobacco (vapes) and No alcohol Exam alert, oriented x 3, clear to auscultation bilaterally and regular rate & rhythm Airway Mallampati: Class II Dentition: false Hepatic hx liver lac during gallbladder removal Anesthetic Plan ASA status: 2E Anesthesia: General Risk of > 500 ml blood loss (7ml/kg in children): No Medications/Allergies Home Medications Medication Instructions Recorded Confirmed Last Taken Type No Known Home Medications 02/25/23 06/20/23 Unknown History Allergies Allergy/AdvReac Type Severity Reaction Status Date / Time azithromycin Allergy ALGY-Hives Verified 06/20/23 11:21 ciprofloxacin [From Cipro] Allergy htn and Verified 06/20/23 11:21 blisters codeine Allergy ADR-Vomitin Verified 06/20/23 11:21 g Penicillins Allergy ALGY-Hives Verified 06/20/23 11:21 PFSH Anesthesia Medical History GERD (gastroesophageal reflux disease) Liver laceration, grade II, with open wound into cavity Conservative measures were successful H&H stable Plan to discharge patient home today with specific education materials given to the patient and instructions. No pertinent past medical history neghx: htn, dm, thyroid, dvt/pe PCP: none Surgical History History of ERCP S/P appy H/O cone biopsy of cervix History of laparoscopic cholecystectomy (~06/2019) Family History Mother Diabetes Grandmother Diabetes maternal Other History of ERCP Denies family history of Cervical cancer Colon cancer Ovarian cancer Prostate cancer Heart disease Hyperlipidemia Breast cancer Anesthesia complication Bleeding disorder Hypertension Uterine cancer Thyroid disease Stroke Social History Substance/Drug Use: never Do you think of yourself as: Straight/Heterosexual Female Reproductive History : 4 Data Anesthesia 06/20/23 11:23 06/20/23 11:00 Short CBC 06/20/23 06/20/23 Range/Units 11:00 11:23 WBC Cancelled 13.13 H Hgb Cancelled 9.90 L Hct Cancelled 29.2 L MCV Cancelled 90.4 Plt Count Cancelled 286 Neut % (Auto) Cancelled 83.5 Neut # (Auto) Cancelled 10.97 H BMP 06/20/23 11:00 Sodium Cancelled Potassium Cancelled Chloride Cancelled Carbon Dioxide Cancelled BUN Cancelled Creatinine Cancelled Glucose Cancelled Calcium Cancelled Liver Function 06/20/23 Range/Units 11:00 Total Bilirubin Cancelled AST Cancelled ALT Cancelled Alkaline Phosphatase Cancelled Albumin Cancelled Cardiac Studies: 2 No Data to Display
[2023-06-20 13:56] LABS: Add Urine Microscopic? YES; Bilirubin Urine Neg (Negative); Blood Urine 3+ (Negative); Glucose Urine UA Norm (Normal); Ketones Urine Negative (Negative); Leukocyte Esterase Urine Negative (Negative); Nitrate Urine Negative (Negative); Protein Urine Neg (Negative); Specific Gravity, Urine 1.025 (1.005-1.030); Urine Appearance Hazy (CLEAR); Urine Color Dark Yellow (Yellow); Urobilinogen Urine Norm (Negative); pH Urine 5 (5-7)
[2023-06-20 13:57] LABS: Add Urine Culture? No; Bacteria Urine 1+ /hpf; Mucus Urine 4+ /hpf; RBC Urine 0-4 /hpf (0-2); Squamous Epithelial Cell Urine 40-55 /hpf (0-5)
--- NOTE | 2023-06-20 13:59 | PC.NURSE ---
ATTEMPTED TO CONTACT SURGERY MULTIPLE TIMES REGARDING LAB DRAW, UNABLE TO REACH ANYONE. 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
--- NOTE | 2023-06-20 14:03 | P.HP_ITS ---
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 History of Present Illness Abby Bernal is a 32 year old female A2 LMP end of April presented to ER c/o onset of right pelvic pain since this morning no fever, chills, nausea, vomiting, vaginal bleeding, dysuria pelvic sono done in ER showed right adnexal mass with pole with heart motion Present Details : 4 Para: 1 Medications/Allergies Home Medications Medication Instructions Recorded Confirmed Last Taken Type No Known Home Medications 02/25/23 06/20/23 Unknown History Allergies Allergy/AdvReac Type Severity Reaction Status Date / Time azithromycin Allergy ALGY-Hives Verified 06/20/23 11:21 ciprofloxacin [From Cipro] Allergy htn and Verified 06/20/23 11:21 blisters codeine Allergy ADR-Vomitin Verified 06/20/23 11:21 g Penicillins Allergy ALGY-Hives Verified 06/20/23 11:21 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 No pertinent past medical history neghx: htn, dm, thyroid, dvt/pe PCP: none Surgical History History of ERCP S/P appy H/O cone biopsy of cervix History of laparoscopic cholecystectomy (~06/2019) Family History Mother Diabetes Grandmother Diabetes maternal Other History of ERCP Denies family history of Cervical cancer Colon cancer Ovarian cancer Prostate cancer Heart disease Hyperlipidemia Breast cancer Anesthesia complication Bleeding disorder Hypertension Uterine cancer Thyroid disease Stroke Social History Substance/Drug Use: never Do you think of yourself as: Straight/Heterosexual Personal Safety: Do you feel safe at home: No Victim of physical abuse: No Victim of emotional abuse: No Victim of sexual abuse: No Would you like help information on resources?: No History History History 2 3 Term 1 0 Miscarriages/Ectopic 2 Living Children 1 Vitals/I&O/Wt Last Vital Signs Temp 97.4 F L 06/20/23 10:37 Pulse 83 06/20/23 13:41 Resp 16 06/20/23 13:41 BP 104/67 06/20/23 13:41 Pulse Ox 99 06/20/23 13:41 O2 Del Method Room Air 06/20/23 11:12 Weight last 48 hrs Weight 185 lb Physical Exam 2 Narrative: comfortable, in no distress HEENT: normal Lungs: clear Cor: RRR Abd: soft, nondistended mild tenderness right lower quadrant no rebound / guarding Ext: normal Data 06/20/23 11:23 06/20/23 11:00 Results Labs OB ([facility]): 2 Obstetrics US 06/20/23 Blood Type O Positive 11/10/21 Antibody Screen Negative 11/10/21 Hct 29.2 % (36-47) L 06/20/23 Hgb 9.90 g/dL (11.27-16.99) L 06/20/23 Rho(D) Type Positive 11/10/21 Plt Count 286 10^3/cmm (157-399) 06/20/23 Ser , Semi-Qnt 149.50 mIU/mL 12/23/21 A&P Assessment and plan (1) Ectopic : pelvic sono done c/w right adnexal ectopic gestation recommend laparoscopy, possible salpingostomy, possible salpingectomy, possible oophorectomy, possible laparotomy procedures and risks explained to patient; risks including, but not limited to, infection, bleeding, injury to internal organs, anesthesia, blood transfusions patient understands and wants to proceed Attestations 2 Medical Necessity Statement*: patient with ectopic Coding Level of Care Code Acute Code for Chg Fwd Diagnoses Ectopic O00.90 Time Spent (min) 60
[2023-06-20] MEDS: ceFAZolin 2,000 MG in sodium chloride 0.9% (plus) 50 ML 100 MG IV (14:59)
--- NOTE | 2023-06-20 15:04 | PC.NURSE ---
1345 - all jewelry removed per pt and placed in pts purse - per pt - as well as dentures
[2023-06-20 15:20] LABS: Alanine Aminotransferase 24 U/L (0-33); Albumin Level 3.6 g/dL (3.5-5.2); Alkaline Phosphatase 36 U/L (35-105); Anion Gap 13.1 (5-19); Aspartate Amino Transferase 14 U/L (0-32); Blood Urea Nitrogen 10 mg/dL (6-20); Calcium 7.9 mg/dL (8.5-10.5); Carbon Dioxide 20 mmol/L (22-29); Chloride 106 mmol/L (98-107); Creatinine Clr Calc Pharmacy 195.7128; Globulin 2.1 g/dL (1.3-4.6); Glomerular Filtration Rate 143.9 mL/min (90-130); Glucose 105 mg/dL (65-115); Lipase 14 U/L (13-60); Osmolality Calculated 279 mOsm/kg (285-295); Potassium 4.1 mmol/L (3.5-5.1); Sodium 135 mmol/L (136-145); Total Bilirubin 0.2 mg/dL (0.15-1.2); Total Protein 5.7 g/dL (6.6-8.7)
--- NOTE | 2023-06-20 16:35 | PM.OP ---
Operative Report Date of procedure: June 20, 2023 Pre-op diagnosis: early gestation Abdominal pain Right adnexal complex mass with extrauterine pole Post-op diagnosis: Ruptured 3 cm right tubal ectopic Hemoperitoneum with approximately 100 cc blood / clots in pelvis Post-op findings: ruptured right tubal ectopic gestation Approximately 800 cc blood / clots in pelvis due to rupture Approximately 12-week old nonviable fetus with placenta seen in pelvis Normal uterus Normal ovaries Procedure done: laparoscopy Laparoscopic right salpingectomy Implants: none Specimens removed/disposition: right fallopian tube ectopic gestation Surgeon: Santino Morillo MD Anesthesia: General Estimated blood loss: 800 cc already in abdomen Operative blood loss approximately 5 cc Complications: none Condition: stable Disposition: floor Brief History: 32 year old female A2 LMP end of April presented to ER c/o onset of right pelvic pain since this morning pelvic sono done in ER showed right adnexal mass with pole with heart motion Procedure: Informed consent was obtained. The patient was taken to the OR and placed on the table. General endotracheal anesthesia was induced. The patient was then placed in dorsolithotomy position. The abdomen and perineum were then prepped and draped in the usual fashion. A Nelson catheter was placed. A 5 mm subumbilical skin incision was made. A 5 mm trocar with sheath was then inserted into the peritoneal cavity under direct visualization with the laparoscope. After confirming intraperitoneal position, pneumoperitoneum was achieved. Two separate 5 mm incisions were made in the right and left mid-quadrants. 5 mm trocars with sheaths were then inserted into the peritoneal cavity under direct visualization with the laparoscope. There was approx. 800 cc of blood and blood clots in pelvis. The uterus and ovaries were seen to be normal. The left fallopian tube was normal. The right fallopian tube showed a mid-tubular rupture consistent with a ruptured ectopic gestation. It was actively bleeding from the edges of the rupture. A fetus with placenta and cord can be seen in the pelvis. A Suction-material checker was used to remove blood and clots from the pelvis. A Ligasure device was used to excise the right fallopian tube segment with the bleeding and rupture. No further bleeding was seen. Due to the size of the fallopian tube segment, a 10 mm trocar with sheath was placed at the umbilical port site. An endo-pouch was used to remove the specimen. The fetus with placenta and cord were also removed. The pelvis was irrigated and any remaining blood clots removed. The uterus, ovaries, and left fallopian tube were again seen to be normal. All instruments were removed from the abdominal cavity after the pneumoperitoneum was allowed to escape. The subumbilical fascia was closed with a stitch of O-Vicryl. The skin incisions were closed using 4-O monocryl in subcuticular fashion. Dermabond was applied. The Nelson catheter was removed. The patient was then placed supine and awakened, taken the the PACU in good condition. Due to the patient?s low preop hemoglobin and the large amount of blood loss due to the tubal rupture, the patient will be admitted overnight for observation. Postoperative condition: good Complications: none EBL: 800 cc already in abdomen Intraoperative blood loss approximately 5 cc Sponge, needle and instruments counts were correct x two
--- NOTE | 2023-06-20 16:57 | P.PCN_ITS ---
PACU note Narrative: VSS, Good respiratory effort, report to SPIRAL WINDER Exam: awake
--- NOTE | 2023-06-20 16:57 | PM.PACU ---
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
[2023-06-20] MEDS: dextrose 5%-lactated ringers 1,000 ML 125 ML IV (19:04)
[2023-06-20] MEDS: ketorolac 30 mg/mL INJ IVP (19:04)
--- NOTE | 2023-06-20 21:48 | PC.NURSE ---
PROVIDER DR. ASHRAF TO FLOOR TO UPDATE PT ON HER PROCEDURE AT APPROXIMATELY 2100.
[2023-06-20] MEDS: HYDROcodone-acetaminophen 5-325 mg Tablet PO (23:37)
[2023-06-21] VITALS (12 sets, daily range): BP systolic 80–131; BP diastolic 45–77; PULSE 63–131
[2023-06-21] MEDS: ketorolac 30 mg/mL INJ IVP ×2 (01:25→06:41)
[2023-06-21 05:06] LABS: Mean Corpuscular HGB Conc 34.6 g/dL (30-55); Mean Corpuscular Hemoglobin 31.7 pg (27-33); Mean Corpuscular Volume 91.8 fl (85-98); Mean Platelet Volume 9.9 fL (7.4-10.4); Platelet Count 226 10^3/cmm (157-399); Red Blood Count 2.08 10^6/uL (3.85-5.65); Red Cell Distribution Width 12.7 % (12.1-15.1)
[2023-06-21 05:13] LABS: Hematocrit 19.1 % (36-47)
--- NOTE | 2023-06-21 14:35 | P.PN_ITS ---
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 normal Lungs:clear Cor:RRR,? no tachycardia Abd:soft, nondistended, nontender Laparoscopic wounds clean and dryExt:normal Urinary Catheter Management: Nelson: Cath Placed During This Visit: yes Urinary Catheter Date of Insertion: 06/20/23 Urinary Catheter Time of Insertion: 15:12 Data 06/21/23 04:45 06/20/23 14:37 A&P Assessment and plan (1) Postoperative follow-up: s/p laparoscopic right salpingectomy June 20, 2023 for ruptured right ectopic gestation with 800-1000 cc hemoperitoneum POD #1 Doing well (2) Anemia: Anemia Postop Hgb6.6 Patient asymptomatic Plan discharge home today Encouraged iron 325 mg PO bid and iron-rich foods Return to see me June 23, 2023 for followup Call / return if fever, chills, nausea, vomiting, malaise, chest pain, palpitations, shortness of breath, weakness, dizziness Attestations 2 Medical Necessity Statement*: patient s/p surgery for ruptured ectopic, plan discharge home today Coding Level of Care Code Acute Code for Chg Fwd Diagnoses Postoperative follow-up Z09 Anemia D64.9 Time Spent (min) 20
--- NOTE | 2023-06-22 13:05 | PC.NURSE ---
Patient presented to OB department with concerns about vaginal bleeding amount. Patient expressed that she had 5 pea sized clots on her pad when she went to the bathroom. This RN educated about post D&C bleeding and saturating more than 1 pad in an hour and passing large clots. This RN educated patient that if she had further concerns, she could continue evaluation in the ER or call [facility]'s [facility] to be evaluated. Patient expressed understanding and denied any further questions.
--- NOTE | 2023-07-07 01:00 | PM.OBGYDC ---
Discharge Providers PRODUCE CLERK Date of Admission: 06/20/23 15:01 Date of Discharge: 06/21/23 Attending Provider at Admission: Santino Morillo MD Attending Provider at Discharge: Santino Morillo MD Consults: none Diagnoses at Discharge Discharge Diagnosis (1) Postoperative follow-up: Details from hospital stay: s/p laparoscopic right salpingectomy June 20, 2023 for ruptured right ectopic gestation with 800-1000 cc hemoperitoneum patient did well postoperatively Status: Acute (2) Anemia: Details from hospital stay: Postop Hgb6.6 Patient asymptomatic Plan discharge home today Encouraged iron 325 mg PO bid and iron-rich foods Return to see me June 23, 2023 for followup Call / return if fever, chills, nausea, vomiting, malaise, chest pain, palpitations, shortness of breath, weakness, dizziness Status: Acute Reason for Visit Reason for Visit: abd pain, pt stated miscarraige on wednesday Brief History: patient found to have ruptured ectopic with blood in pelvis Hospital Course Hospital Course patient underwent laparoscopic salpingectomy with removal of ruptured ectopic gestation also found to have approx 800-1000 cc blood in pelvis patient did well postoperatively had anemia to 6.6 however, patient was asymptomatic was discharged home on iron and iron-rich foods Physical Exam Narrative: Comfortable Awake, alert Afebrile, VS? normal Lungs: clear Cor: RRR,? no tachycardia Abd: soft, nondistended, nontender Laparoscopic wounds clean and dryExt:normal Urinary Catheter Management: Nelson: Cath Placed During This Visit: yes Urinary Catheter Date of Insertion: 06/20/23 Urinary Catheter Time of Insertion: 15:12 History History History 4 Term 1 0 Miscarriages/Ectopic 3 Living Children 1 Discharge Data Studies Completed and Pending Completed Studies During Hospitalization Category Date Time Status Pathology: Surgical [PTH] Routine Pth 06/20/23 16:16 Completed US OB <=14 wk fetus w transvag Stat Ultrasound 06/20/23 10:34 Completed Radiology Impressions Obstetrics Ultrasound 06/20/23 10:34 IMPRESSION: 1. Cystic structure in right adnexa consistent with an ectopic with fetus visualized. Positive heart rate of 118 bpm. [place]-rump length measures 1.93 cm corresponding to an 8 week 3 day gestational age. 2. Adjacent to right ovary, area of ectopic but greatest in the left adnexal area is a heterogeneous area of echogenicity of questionable etiology but given above findings may represent blood clot or possible omentum or infiltrative mass. 3. Left ovary not visualized. ADDENDUM: 06/20/23 1233 THIS REPORT CONTAINS FINDINGS THAT MAY BE CRITICAL TO PATIENT CARE. The findings were verbally communicated via telephone conference at 12:31 PM CROP GRAIN OR LIVESTOCK FARM MANAGER on 06/20/2023 with CORRINE MORENO. The findings were acknowledged and understood. Laboratory Results WBC 10.50 10^3/uL (3.29-11.43) 06/21/23 04:45 Corrected WBC Cancelled 06/20/23 11:00 RBC 2.08 10^6/uL (3.85-5.65) L 06/21/23 04:45 Hgb 6.60 g/dL (11.27-16.99) L D 06/21/23 04:45 Hct 19.1 % (36-47) L* D 06/21/23 04:45 MCV 91.8 fl (85-98) 06/21/23 04:45 MCH 31.7 pg (27-33) 06/21/23 04:45 MCHC 34.6 g/dL (30-55) 06/21/23 04:45 RDW 12.7 % (12.1-15.1) 06/21/23 04:45 Plt Count 226 10^3/cmm (157-399) 06/21/23 04:45 MPV 9.9 fL (7.4-10.4) 06/21/23 04:45 Gran % Cancelled 06/20/23 11:00 Neut % (Auto) 83.5 % 06/20/23 11:23 Lymph % (Auto) 10.5 % 06/20/23 11:23 Lander % (Auto) 4.5 % 06/20/23 11:23 Eos % (Auto) 0.7 % 06/20/23 11:23 Baso % (Auto) 0.3 % 06/20/23 11:23 Neut # (Auto) 10.97 10^3/uL (1.8-7.7) H 06/20/23 11:23 Lymph # (Auto) 1.4 10^3/uL (0.8-4.8) 06/20/23 11:23 Lander # (Auto) 0.6 10^3/uL (0.2-0.9) 06/20/23 11:23 Eos # (Auto) 0.1 10^3/uL (0.0-0.8) 06/20/23 11:23 Baso # (Auto) 0.0 10^3/uL (0.0-0.1) 06/20/23 11:23 Absolute Gran (auto) Cancelled 06/20/23 11:00 Nucleated RBC % (auto) 0 % 06/20/23 11:23 Nucleated RBCs # 0.0 /100WBC 06/20/23 11:23 Sodium 135 mmol/L (136-145) L 06/20/23 14:37 Potassium 4.1 mmol/L (3.5-5.1) 06/20/23 14:37 Chloride 106 mmol/L (98-107) 06/20/23 14:37 Carbon Dioxide 20 mmol/L (22-29) L 06/20/23 14:37 Anion Gap 13.1 (5-19) 06/20/23 14:37 BUN 10 mg/dL (6-20) 06/20/23 14:37 Creatinine 0.5 mg/dL (0.5-0.9) 06/20/23 14:37 GFR Calculation 143.9 mL/min (90-130) H 06/20/23 14:37 Glucose 105 mg/dL (65-115) 06/20/23 14:37 Calculated Osmolality 279 mOsm/kg (285-295) L 06/20/23 14:37 Calcium 7.9 mg/dL (8.5-10.5) L 06/20/23 14:37 Total Bilirubin 0.2 mg/dL (0.15-1.2) 06/20/23 14:37 AST 14 U/L (0-32) 06/20/23 14:37 ALT 24 U/L (0-33) 06/20/23 14:37 Alkaline Phosphatase 36 U/L (35-105) 06/20/23 14:37 Total Protein 5.7 g/dL (6.6-8.7) L 06/20/23 14:37 Albumin 3.6 g/dL (3.5-5.2) 06/20/23 14:37 Globulin 2.1 g/dL (1.3-4.6) 06/20/23 14:37 Lipase 14 U/L (13-60) 06/20/23 14:37 Ser , Semi-Qnt 31797.00 mIU/mL 06/20/23 14:37 Urine Color Dark yellow (Yellow) 06/20/23 13:38 Urine Appearance Hazy (CLEAR) A 06/20/23 13:38 Urine pH 5 (5-7) 06/20/23 13:38 Ur Specific [place] 1.025 (1.005-1.030) 06/20/23 13:38 Urine Protein Neg (Negative) 06/20/23 13:38 Urine Glucose (UA) Norm (Normal) 06/20/23 13:38 Urine Ketones Negative (Negative) 06/20/23 13:38 Urine Blood 3+ (Negative) H 06/20/23 13:38 Urine Nitrate Negative (Negative) 06/20/23 13:38 Urine Bilirubin Neg (Negative) 06/20/23 13:38 Urine Urobilinogen Norm mg/dL (Negative) 06/20/23 13:38 Ur Leukocyte Esterase Negative (Negative) 06/20/23 13:38 Urine RBC 0-4 /hpf (0-2) H 06/20/23 13:38 Urine WBC 5-10 /hpf (0-5) H 06/20/23 13:38 Ur Squamous Epith Cells 40-55 /hpf (0-5) H 06/20/23 13:38 Amorphous Sediment Not Reportable 06/20/23 13:38 Urine Bacteria 1+ /hpf (NONE) H 06/20/23 13:38 Urine Mucus 4+ /hpf 06/20/23 13:38 Blood Type O Positive 06/20/23 14:37 Rho(D) Type Rh positive 06/20/23 14:37 Antibody Screen Negative 06/20/23 14:37 Procedures Performed laparoscopic salpingectomy Vitals Last Vital Signs Temp 98.3 F 06/20/23 17:02 Pulse 112 H 06/21/23 10:27 Resp 17 06/20/23 18:05 BP 131/77 06/21/23 10:27 Pulse Ox 99 06/20/23 18:52 O2 Del Method Room Air 06/20/23 18:05 Results Labs OB ([facility]): Obstetrics US 06/20/23 Blood Type O Positive 06/20/23 Antibody Screen Negative 06/20/23 Hct 21.1 % (36-47) L 06/23/23 Hgb 6.90 g/dL (11.27-16.99) L 06/23/23 Rho(D) Type Rh positive 06/20/23 Plt Count 281 10^3/cmm (157-399) 06/23/23 Ser , Semi-Qnt 28676.00 mIU/mL 06/20/23 Discharge Plan Discharge Patient Disposition: Home Condition: Stable Prescriptions: No Action No Known Home Medications Discharge Orders: Discharge Order (Routine); Ordered 06/21/23 Ordered By: Santino Morillo Discharge Diet: Usual diet Discharge Activity: Increase activity as tolerated Patient Instructions: Ectopic (DC), Salpingectomy (DC), Complications of Infection (GEN), Opioid Safety Discharge Attestations PRODUCE CLERK Time Spent in Discharge Care*: less than 30 min Status at Discharge: Cognitive status at discharge: cognitively intact, Behavioral status at discharge: cooperative, Coding Level of Care Code Acute Code for Chg Fwd Diagnoses Postoperative follow-up Z09 Anemia D64.9 Time Spent (min) 20
== END 2023-06-21 10:28 | disposition home or self-care (01) ==
LOC: ER 14:01 → OR 14:04 → OBGYN 15:01
PROVIDERS: Admitting Provider Obstetrics & Gynecology; Emergency Provider Emergency Medicine; Visit Provider Obstetrics & Gynecology
PROC: (CPT 59150; principal; 2023-06-20 13:50)
DX: O00.101 Right tubal pregnancy without intrauterine pregnancy (principal); K66.1 Hemoperitoneum
CPT/HCPCS: 59151; 36415; 76801; 76817; 80053; 81001; 83690; 84702; 85025; 85027; 86850; 86900; 88305; 96365; 96375; 99285; G0378; J0690; J1100; J1170; J1885; J2250; J2270; J2405; J2704; J2710; J3490; J7030; J7121

== ENCOUNTER → 2023-06-23 10:24 | Outpatient (BNVA) | payer MEDICAID, SELFPAY | PROVIDERS: Visit Provider Obstetrics & Gynecology | DX: Z00.00 Encounter for general adult medical examination without abnormal findings (principal) | CPT/HCPCS: 85025 ==

== ENCOUNTER → 2023-09-01 11:13 | Outpatient (BNVA) | payer MEDICAID, SELFPAY | PROVIDERS: Visit Provider Obstetrics & Gynecology | DX: D64.9 Anemia, unspecified (principal); Z30.41 Encounter for surveillance of contraceptive pills | CPT/HCPCS: 85025 ==

== ENCOUNTER 2023-11-19 11:40 | Emergency (ER) | payer MEDICAID, SELFPAY ==
[2023-11-19] VITALS (8 sets, daily range): BP systolic 112–142; BP diastolic 75–97; PULSE 102–128; RESP 22–29; TEMP 37.1; O2SAT 89–100
--- NOTE | 2023-11-19 11:54 | CT_ITS ---
WS: [id number] CT HEAD NONCONTRAST HISTORY: Encephalopathy, altered mental status TECHNIQUE: Contiguous axial imaging performed through the brain in 3.0 mm imaging. Bone and soft tiss ue windows. Sagittal and coronal reformats reviewed. All CT scans at [facility] use at least one of these dose optimization techniques: automated exposure control; mA and/or kV adjustment per pa tient size (includes targeted exams where dose is matched to clinical indication); or iterative recon struction. DLP: 1797.99 mGy.cm COMPARISON: 09/10/2014 No acute intracranial hemorrhage, midline shift or mass effect. No atrophy or prior infarcts or herniation. Artifact through the brain from foreign body in the RIGHT ear which appears to be a piercing. Ventricles: Normal size with no hydrocephalus. Paranasal sinuses: Moderate-sized mucous retention cyst in the LEFT maxillary sinus. Mastoid air cells: Well pneumatized. Calvarium and scalp: Skull is intact with no soft tissue edema or swelling. CT/CT head wo con* [id number] IMPRESSION: Negative head CT.
--- NOTE | 2023-11-19 11:54 | XRR_ITS ---
PROCEDURE INFORMATION: Exam: XR Chest Exam date and time: 11/19/2023 12:12 PM Age: 32 years old Clinical indication: Other: Weakness TECHNIQUE: Imaging protocol: Radiologic exam of the chest. Views: 1 view. COMPARISON: CR XR chest 1V portable [id number] 06/02/2020 11:56 PM FINDINGS: Airway: The airways are patent. Lungs: No acute interstitial or airspace disease. Pleural spaces: No pleural effusions or pneumothorax. Heart/Mediastinum: Heart is of normal size and morphology. Bones/joints: No acute fracture, dislocation, or aggressive osseous lesion. XR/XR chest 1V portable [id number] IMPRESSION: No acute thoracic pathology.
--- NOTE | 2023-11-19 11:56 | W.ED.SEIZURE ---
HPI - Seizure General: Chief Complaint: Seizure Stated Complaint: seizure Time Seen by Provider: 11/19/23 11:54 History of Present Illness: HPI Narrative: 32-year-old female who presents to the emergency room with seizures by ambulance. No known history of seizures. She was given Narcan as there was some concern for overdose. Also given Versed. Here she is very confused and may still be having some sort of focal type seizure. Not tonic-clonic at this point. Or she may just be postictal. She did not have loss of bowel and bladder. She did however bite her tongue. Mother arrived later and says she had febrile seizures as an and had an episode a few years back that was similar to this. She had what was thought was a seizure and then some encephalopathy. At that time it was thought that perhaps she had overdosed on something like K2. However she continued to deny this and her drug screen was negative. She has had no other seizure-like activity and has not been on any medications for seizures Review of Systems General: Reports: ROS unobtainable due to medical condition and ROS unobtainable due to mental status PFSH ED PFSH: Medical History No pertinent past medical history neghx: htn, dm, thyroid, dvt/pe PCP: none GERD (gastroesophageal reflux disease) Liver laceration, grade II, with open wound into cavity Conservative measures were successful H&H stable Plan to discharge patient home today with specific education materials given to the patient and instructions. Surgical History History of ERCP S/P appy H/O cone biopsy of cervix History of laparoscopic cholecystectomy (~06/2019) Family History Mother Diabetes Grandmother Diabetes maternal Other History of ERCP Denies family history of Cervical cancer Colon cancer Ovarian cancer Prostate cancer Heart disease Hyperlipidemia Breast cancer Anesthesia complication Bleeding disorder Hypertension Uterine cancer Thyroid disease Stroke Social History Substance/Drug Use: never Do you think of yourself as: Straight/Heterosexual Physical Exam Narrative: EXAM NARRATIVE: General: Patient is somnolent and possibly still having some focal seizure activity. Some rapid eye movements. Skin: Warm, dry. Head: Normocephalic, atraumatic. Neck: Supple, trachea midline. Eye: Extraocular movements are intact. Ears, nose, mouth and throat: Dry oral mucosa. Cardiovascular: Tachycardic, Normal peripheral perfusion. Respiratory: Lungs are clear to auscultation, respirations are non-labored, breath sounds are equal, Symmetrical chest wall expansion. Gastrointestinal: Soft, Nontender, Non distended, Normal bowel sounds. Musculoskeletal: Normal ROM, no deformity. Neurological: Patient is not alert. She does not appear to have any focal motor deficits or facial palsy. Psychiatric: Unable to assess Course Vital Signs: Vital signs: Vital Signs Temperature 98.7 F 11/19/23 11:45 Pulse Rate 103 H 11/19/23 13:30 Respiratory Rate 23 H 11/19/23 13:30 Blood Pressure 120/79 11/19/23 13:30 Pulse Oximetry 100 11/19/23 13:30 Oxygen Delivery Me thod Room Air 11/19/23 11:45 MDM - Seizure MDM Narrative Medical decision making narrative: Medical decision making: Differential diagnosis for this patient with a complaint of seizure like activity would include but not be limited to, and based on the above HPI, review of systems and physical exam: seizure, DT's, alcohol withdrawal, brain malignancy, pseudo-seizure, syncope. Orders placed to evaluate differential diagnosis based on the above differential, HPI and physical exam EKG: Time 1159 rate 123. Sinus tachycardia, No ST-T changes, no ectopy, normal LA & QRS intervals, This was reviewed and interpreted by myself the ER physician at 1203 Chest x-ray: No acute process. No infiltrate. No pneumothorax. No cardiomegaly. This was reviewed and interpreted by myself the ER physician. CT head: No acute intracranial process. no intracranial hemorrhage, no evidence of infarct. no evidence of acute fracture.This was reviewed and interpreted by myself the ER physician. Lab Review: Laboratory results were reviewed and interpreted by myself the emergency room physician White count is bit elevated. At 13,000. Lactate is significantly elevated at 10.2 which would indicate she did have a true epileptic tonic-clonic seizure. Also CK is mildly elevated at 370. Renal function is normal. Her drug screen is completely normal. Infectious workup is negative. Urinalysis is clear and chest x-ray shows no pneumonias. She has had no fever. However I am going to cover her for sepsis with broad-spectrum antibiotics as this case is still very unclear. Her blood pressure is normal but her heart rate was elevated. With the elevated lactate and white count cultures are being drawn and antibiotics given. Consultation: I consulted neurology at [facility] who is on-call for our strokes this weekend. Spoke with Dr. Fernández. She recommends transfer to the emergency room but [facility] was full. So I have contacted [facility] 1425: Patient was accepted by Dr. Cadena to the emergency room at [facility]. Prolonged emergency room stay: Delay secondary to consultation with an outside neurologist and then calling to transfer at a different emergency room. I reviewed the patient's medical record. Reexamination: Patient continues to have continuous eye movements. Not necessarily nystagmus. She does seem to respond to family and look towards them. She verbalized that a needlestick hurt. She received 2 of Ativan initially. Have given another milligram of Ativan and I am giving Keppra. I am concerned she may still be having some sort of focal seizure. She does appear to be maintaining her airway. Assessment and plan: Seizure Lactic acidosis Metabolic encephalopathy -I discussed the patient with ER physician at [facility] who has accepted. -Multiple doses of IV Ativan in the emergency room. I am going to have been given 2 g of Keppra as I am concerned she is having some sort of focal seizure at this time. We do not have neurology nor to have access to an MRI at this time so her transfer is needed. Also recommended by neurologist at [facility]. -I am going to cover her with broad-spectrum antibiotics in case this is some sort of infectious. -1 L normal saline bolus and starting maintenance fluids - Discussed findings and plan with patient. Answered any questions. - All laboratory values were reviewed and interpreted personally by myself, the ER physician - All imaging was reviewed and interpreted personally by myself, the ER physician. - Evaluation and treatment of this problem were appropriate in the emergency setting -I spent a total of >35 minutes of critical care time managing the patient, independent of any other practitioner. -The time involved in the performance of separately reportable procedures was not counted towards critical care time. Lab Data 11/19/23 12:13 11/19/23 12:31 Labs: Radiology Impressions Chest X-Ray 11/19/23 11:54 IMPRESSION: No acute thoracic pathology. Head CT 11/19/23 11:54 IMPRESSION: Negative head CT. Laboratory Results WBC 13.43 10^3/uL (3.29-11.43) H 11/19/23 12:13 RBC 4.33 10^6/uL (3.85-5.65) 11/19/23 12:13 Hgb 12.80 g/dL (11.27-16.99) 11/19/23 12:13 Hct 39.7 % (36-47) 11/19/23 12:13 MCV 91.7 fl (85-98) 11/19/23 12:13 MCH 29.6 pg (27-33) 11/19/23 12:13 MCHC 32.2 g/dL (30-55) 11/19/23 12:13 RDW 14.6 % (12.1-15.1) 11/19/23 12:13 Plt Count 351 10^3/cmm (157-399) 11/19/23 12:13 MPV 9.5 fL (7.4-10.4) 11/19/23 12:13 Neut % (Auto) 84.8 % 11/19/23 12:13 Lymph % (Auto) 8.3 % 11/19/23 12:13 [place]oval % (Auto) 6.0 % 11/19/23 12:13 Eos % (Auto) 0.1 % 11/19/23 12:13 Baso % (Auto) 0.4 % 11/19/23 12:13 Neut # (Auto) 11.38 10^3/uL (1.8-7.7) H 11/19/23 12:13 Lymph # (Auto) 1.1 10^3/uL (0.8-4.8) 11/19/23 12:13 [place] # (Auto) 0.8 10^3/uL (0.2-0.9) 11/19/23 12:13 Eos # (Auto) 0.0 10^3/uL (0.0-0.8) 11/19/23 12:13 Baso # (Auto) 0.1 10^3/uL (0.0-0.1) 11/19/23 12:13 Nucleated RBC % (auto) 0 % 11/19/23 12:13 Nucleated RBCs # 0.0 /100WBC 11/19/23 12:13 Specimen Type Arterial 11/19/23 12:10 Sample Site Radial, left 11/19/23 12:10 ABG pH 7.35 (7.35-7.45) 11/19/23 12:10 ABG pCO2 30.9 mmHg (35-45) L 11/19/23 12:10 ABG pO2 161.0 mmHg (80.0-100.0) H 11/19/23 12:10 ABG PO2/FiO2 Ratio 0 11/19/23 12:10 ABG HCO3 16.9 mmol/L (22-26) L 11/19/23 12:10 ABG O2 Saturation 100.0 11/19/23 12:10 ABG Base Excess -7.6 mmol/L (-2.0-2.0) L 11/19/23 12:10 Hipolito Test Pos 11/19/23 12:10 A-a O2 Gradient 14.0 mmHg (5-10) H 11/19/23 12:10 Hematocrit 39.0 % (37-47) 11/19/23 12:10 Hgb O2 Saturation 98.3 % (95-100) 11/19/23 12:10 Carboxyhemoglobin 1.1 %THgb (0.4-20.1) 11/19/23 12:10 Methemoglobin 0.6 % (0.4-1.5) 11/19/23 12:10 Total Hemoglobin 12.7 g/dL (12-16) 11/19/23 12:10 Sodium 140.0 mmol/L (131-143) 11/19/23 12:10 Potassium 3.6 mmol/L (3.5-5.0) 11/19/23 12:10 Glucose 123.0 mg/dL (70-115) H 11/19/23 12:10 Ionized Calcium 1.3 mmol/L (1.1-1.4) 11/19/23 12:10 O2 Delivery Device Nc 11/19/23 12:10 O2 Liters/Min 6.0 % 11/19/23 12:10 FiO2 44.0 % 11/19/23 12:10 Metaphysics Teacher ID Monro 11/19/23 12:10 Sodium 136 mmol/L (136-145) 11/19/23 12:31 Potassium 3.8 mmol/L (3.5-5.1) 11/19/23 12:31 Chloride 103 mmol/L (98-107) 11/19/23 12:31 Carbon Dioxide 17 mmol/L (22-29) L 11/19/23 12:31 Anion Gap 19.8 (5-19) H 11/19/23 12:31 BUN 8 mg/dL (6-20) 11/19/23 12:31 Creatinine 1.1 mg/dL (0.5-0.9) H 11/19/23 12:31 GFR Calculation 57.9 mL/min (90-130) L 11/19/23 12:31 Glucose 116 mg/dL (65-115) H 11/19/23 12:31 Calculated Osmolality 281 mOsm/kg (285-295) L 11/19/23 12:31 Lactic Acid 10.2 mmol/L (0.5-2.2) H* 11/19/23 12:13 Calcium 9.5 mg/dL (8.5-10.5) 11/19/23 12:31 Total Bilirubin 0.4 mg/dL (0.15-1.2) 11/19/23 12:31 AST 19 U/L (0-32) 11/19/23 12:31 ALT 15 U/L (0-33) 11/19/23 12:31 Alkaline Phosphatase 65 U/L (35-105) 11/19/23 12:31 Creatine Kinase 370 U/L (26-192) H* 11/19/23 12:31 C-Reactive Protein 3.0 mg/L (0.0-4.9) 11/19/23 12:31 Total Protein 7.7 g/dL (6.6-8.7) 11/19/23 12:31 Albumin 4.4 g/dL (3.5-5.2) 11/19/23 12:31 Globulin 3.3 g/dL (1.3-4.6) 11/19/23 12:31 HCG, Qual Negative (Negative) 11/19/23 12:13 Urine Color Yellow (Yellow) 11/19/23 12:13 Urine Appearance Clear (CLEAR) 11/19/23 12:13 Urine pH 5 (5-7) 11/19/23 12:13 Ur Specific [place] 1.020 (1.005-1.030) 11/19/23 12:13 Urine Protein Neg (Negative) 11/19/23 12:13 Urine Glucose (UA) Norm (Normal) 11/19/23 12:13 Urine Ketones Negative (Negative) 11/19/23 12:13 Urine Blood Neg (Negative) 11/19/23 12:13 Urine Nitrate Negative (Negative) 11/19/23 12:13 Urine Bilirubin Neg (Negative) 11/19/23 12:13 Urine Urobilinogen Norm mg/dL (Negative) 11/19/23 12:13 Ur Leukocyte Esterase Negative (Negative) 11/19/23 12:13 Urine RBC 0-4 /hpf (0-2) H 11/19/23 12:13 Urine WBC None /hpf (0-5) 11/19/23 12:13 Ur Squamous Epith Cells 0-4 /hpf (0-5) H 11/19/23 12:13 Amorphous Sediment Not Reportable 11/19/23 12:13 Urine Bacteria None /hpf (NONE) 11/19/23 12:13 Salicylates < 0.3 mg/dL (3-10) L 11/19/23 12:31 Urine Opiates Screen Negative ng/mL (Negative) 11/19/23 12:13 Acetaminophen < 5.0 ug/mL (10-30) L 11/19/23 12:31 Ur Barbiturates Screen Negative ng/mL (Negative) 11/19/23 12:13 Ur Phencyclidine Scrn Negative ng/mL (Negative) 11/19/23 12:13 Ur Amphetamines Screen Negative ng/mL (Negative) 11/19/23 12:13 U Benzodiazepines Scrn Negative ng/mL (Negative) 11/19/23 12:13 Urine Cocaine Screen Negative ng/mL (Negative) 11/19/23 12:13 U Marijuana (THC) Screen Negative ng/mL (Negative) 11/19/23 12:13 Ethyl Alcohol < 10 mg/dL (0-10) 11/19/23 12:31 All radiology interpretation(s) finalized by discharge Discharge Plan Discharge Patient Disposition: Transfer to ED Clinical Impression: New onset seizure, Lactic acidosis, Acute metabolic encephalopathy Condition: Stable Prescriptions: No Action No Known Home Medications Coding Level of Care Code ED Cardiologist for Sarah Walsh
--- NOTE | 2023-11-19 11:59 | ECG_ITS ---
[facility] Test Date: 2023-11-19 Pat Name: Abby Bernal Department: Room: Gender: Female Heel Seat Trimmer: : 1990 Requested By: July Bruner Order Number: [id number] Castro MD: Role Grande M.D. Measurements Intervals [place] Rate: 123 P: 72 MD: 155 QRS: 60 QRSD: 97 T: 47 QT: 415 QTc: 594 Interpretive Statements SINUS TACHYCARDIA NONSPECIFIC ST & T-WAVE ABNORMALITY Compared to ECG 09/10/2014 17:39:07 T-wave abnormality now present Sinus rhythm no longer present Sinus arrhythmia no longer present Electronically Signed On 11-19-2023 12:54:02 CDT by Roel Grande M.D. [id number]
[2023-11-19 12:19] LABS: Basophils # 0.1 10^3/uL (0.0-0.1); Basophils % 0.4 %; Eosinophils % 0.1 %; Hematocrit 39.7 % (36-47); Lymphocytes # 1.1 10^3/uL (0.8-4.8); Lymphocytes % 8.3 %; Mean Corpuscular HGB Conc 32.2 g/dL (30-55); Mean Corpuscular Hemoglobin 29.6 pg (27-33); Mean Corpuscular Volume 91.7 fl (85-98); Mean Platelet Volume 9.5 fL (7.4-10.4); Monocytes # 0.8 10^3/uL (0.2-0.9); Neutrophils # 11.38 10^3/uL (1.8-7.7); Neutrophils % 84.8 %; Nucleated Red Blood Cells % 0 %; Platelet Count 351 10^3/cmm (157-399); Red Blood Count 4.33 10^6/uL (3.85-5.65); Red Cell Distribution Width 14.6 % (12.1-15.1); White Blood Count 13.43 10^3/uL (3.29-11.43)
[2023-11-19 12:22] LABS: HCG Qualitative Urine. Negative (Negative)
[2023-11-19 12:22] LABS: ABG PCO2 30.9 mmHg (35-45); ABG PH Result 7.35 (7.35-7.45); Base Excess ABG -7.6 mmol/L (-2.0-2.0); Blood Gas Allen Test Pos; Blood Gas Sample Site Radial, left; Blood Gas Sample Type Arterial; Carboxyhemoglobin 1.1 %THgb (0.4-20.1); HCO3 ABG 16.9 mmol/L (22-26); HGB O2 Sat 98.3 % (95-100); Ionized Calcium Level - ABG 1.3 mmol/L (1.1-1.4); Methemoglobin 0.6 % (0.4-1.5); Potassium Level - ABG 3.6 mmol/L (3.5-5.0); Total Hemoglobin 12.7 g/dL (12-16)
[2023-11-19 12:23] LABS: Blood Gas Operator Identificat MONRO; Oxygen Device NC; PO2 FiO2 Ratio Arterial Blood 0
[2023-11-19 12:34] LABS: Urine Color Yellow (Yellow)
[2023-11-19 12:35] LABS: Bilirubin Urine Neg (Negative); Blood Urine Neg (Negative); Glucose Urine UA Norm (Normal); Ketones Urine Negative (Negative); Leukocyte Esterase Urine Negative (Negative); Nitrate Urine Negative (Negative); Protein Urine Neg (Negative); Urine Appearance Clear (CLEAR); Urobilinogen Urine Norm (Negative); pH Urine 5 (5-7)
[2023-11-19 12:42] LABS: Lactic Sepsis W/Reflex 10.2 mmol/L (0.5-2.2)
[2023-11-19 12:44] LABS: Amphetamines Screen Urine Negative (Negative); Barbiturates Screen Urine Negative (Negative); Benzodiazepines Screen Urine Negative (Negative); Cocaine Screen Urine Negative (Negative); Opiate Screen Urine Negative (Negative); PCP Screen Urine Negative (Negative); THC Screen Urine Negative (Negative)
[2023-11-19] MEDS: LORazepam 2 mg/mL INJ 10 mL MDV IV (12:45)
[2023-11-19] MEDS: sodium chloride 0.9% 1,000 ML 999 ML IV (12:46)
[2023-11-19 12:48] LABS: RBC Urine 0-4 /hpf (0-2); Squamous Epithelial Cell Urine 0-4 /hpf (0-5)
[2023-11-19 12:49] LABS: Add Urine Culture? No
[2023-11-19 12:56] LABS: Alanine Aminotransferase 15 U/L (0-33); Albumin Level 4.4 g/dL (3.5-5.2); Alkaline Phosphatase 65 U/L (35-105); Anion Gap 19.8 (5-19); Aspartate Amino Transferase 19 U/L (0-32); Blood Urea Nitrogen 8 mg/dL (6-20); Calcium 9.5 mg/dL (8.5-10.5); Carbon Dioxide 17 mmol/L (22-29); Chloride 103 mmol/L (98-107); Globulin 3.3 g/dL (1.3-4.6); Glomerular Filtration Rate 57.9 mL/min (90-130); Glucose 116 mg/dL (65-115); Osmolality Calculated 281 mOsm/kg (285-295); Potassium 3.8 mmol/L (3.5-5.1); Sodium 136 mmol/L (136-145); Total Bilirubin 0.4 mg/dL (0.15-1.2); Total Protein 7.7 g/dL (6.6-8.7)
[2023-11-19 12:57] LABS: Acetaminophen < 5.0 ug/mL (10-30); Alcohol Level < 10 mg/dL (0-10); Salicylate < 0.3 mg/dL (3-10)
[2023-11-19 14:04] LABS: Reflex Lactate Order REFLEX LACTIC ORDERD
[2023-11-19] MEDS: LORazepam 2 mg/mL INJ 10 mL MDV 1 MG IV (14:07)
[2023-11-19 14:13] LABS: Creatine Phosphokinase 370 U/L (26-192)
[2023-11-19] MEDS: levETIRAcetam 2,000 MG/200 ML PREMIX 400 MG IV (14:27)
[2023-11-19] MEDS: meropenem 500 MG in sodium chloride 0.9% (plus) 50 ML 100 MG IV (15:02)
[2023-11-19] MEDS: sodium chloride 0.9% 1,000 ML 125 ML IV (15:10)
[2023-11-19 15:33] LABS: Lactic Acid level (Lactate) 0.9 mmol/L (0.5-2.2)
[2023-11-19] MEDS: linezolid premix 600 MG/300 ML PREMIX 300 MG IV (16:00)
== END 2023-11-19 16:14 ==
PROVIDERS: Emergency Provider Emergency Medicine
DX: G40.89 Other seizures (principal); E87.20 Acidosis, unspecified; G93.41 Metabolic encephalopathy; R00.0 Tachycardia, unspecified
CPT/HCPCS: 36415; 36600; 51702; 70450; 71045; 80051; 80053; 80306; 80307; 81001; 81025; 82330; 82550; 82805; 83605; 85025; 86140; 93005; 96365; 96367; 96375; 96376; 99285; J1953; J2020; J2060; J2185; J7030

== ENCOUNTER 2023-12-28 14:27 | Emergency (ER) | payer MEDICAID, SELFPAY ==
[2023-12-28 14:31] VITALS: BP 131/85; PULSE 80; RESP 14; TEMP 37.7; O2SAT 98
[2023-12-28 15:18] LABS: Add Urine Microscopic? YES; Bilirubin Urine Neg (Negative); Blood Urine Neg (Negative); Glucose Urine UA Norm (Normal); Ketones Urine Negative (Negative); Leukocyte Esterase Urine Negative (Negative); Nitrate Urine Positive (Negative); Protein Urine Neg (Negative); Specific Gravity, Urine 1.015 (1.005-1.030); Urine Appearance Slightly Cloudy (CLEAR); Urine Color Yellow (Yellow); Urobilinogen Urine Norm (Negative); pH Urine 9 (5-7)
[2023-12-28 15:19] LABS: Add Urine Culture? No; Bacteria Urine 3+ /hpf; RBC Urine 0-4 /hpf (0-2); WBC Urine 40-55 /hpf (0-5)
[2023-12-28 15:27] LABS: Basophils % 0.4 %; Eosinophils % 0.2 %; Lymphocytes % 10.2 %; Mean Corpuscular HGB Conc 33.5 g/dL (30-55); Mean Corpuscular Hemoglobin 30.1 pg (27-33); Mean Corpuscular Volume 89.8 fl (85-98); Mean Platelet Volume 9.9 fL (7.4-10.4); Monocytes # 0.9 10^3/uL (0.2-0.9); Neutrophils # 8.09 10^3/uL (1.8-7.7); Neutrophils % 79.9 %; Nucleated Red Blood Cells % 0 %; Platelet Count 236 10^3/cmm (157-399); Red Blood Count 4.12 10^6/uL (3.85-5.65); Red Cell Distribution Width 13.3 % (12.1-15.1); White Blood Count 10.12 10^3/uL (3.29-11.43)
[2023-12-28 15:37] LABS: Alanine Aminotransferase 13 U/L (0-33); Albumin Level 4.6 g/dL (3.5-5.2); Alkaline Phosphatase 67 U/L (35-105); Anion Gap 17.9 (5-19); Aspartate Amino Transferase 14 U/L (0-32); Blood Urea Nitrogen 5 mg/dL (6-20); Calcium 9.4 mg/dL (8.5-10.5); Carbon Dioxide 23 mmol/L (22-29); Chloride 100 mmol/L (98-107); Creatinine Clr Calc Pharmacy 103.8762; Globulin 3.4 g/dL (1.3-4.6); Glomerular Filtration Rate 72.6 mL/min (90-130); Glucose 124 mg/dL (65-115); Lipase 24 U/L (13-60); Osmolality Calculated 283 mOsm/kg (285-295); Potassium 3.9 mmol/L (3.5-5.1); Sodium 137 mmol/L (136-145); Total Bilirubin 0.4 mg/dL (0.15-1.2)
[2023-12-28] MEDS: sodium chloride 0.9% 1,000 ML 999 ML IV (15:37)
[2023-12-28] MEDS: ketorolac 30 mg/mL INJ IVP (15:37)
[2023-12-28] MEDS: cefTRIAXone 1,000 MG in sodium chloride 0.9% (plus) 50 ML 100 MG IV (15:38)
[2023-12-28 15:39] LABS: HCG, Serum Qual Negative (Negative)
--- NOTE | 2023-12-28 16:00 | W.ED.ABDPA2 ---
HPI - Abdominal Pain General: Chief Complaint: Abdominal Pain Stated Complaint: fever, sharp abd pain, dr. tobin sent over Time Seen by Provider: 12/28/23 14:55 History of Present Illness: 33-year-old female with a history of tubal status post surgery, history of appendectomy, and seizure disorder who presents to the emergency room with right-sided abdominal pain, and fevers. [facility] ED PFSH: Medical History No pertinent past medical history neghx: htn, dm, thyroid, dvt/pe PCP: none GERD (gastroesophageal reflux disease) Liver laceration, grade II, with open wound into cavity Conservative measures were successful H&H stable Plan to discharge patient home today with specific education materials given to the patient and instructions. Surgical History History of ERCP S/P appy H/O cone biopsy of cervix History of laparoscopic cholecystectomy (~06/2019) Family History Mother Diabetes Grandmother Diabetes maternal Other History of ERCP Denies family history of Cervical cancer Colon cancer Ovarian cancer Prostate cancer Heart disease Hyperlipidemia Breast cancer Anesthesia complication Bleeding disorder Hypertension Uterine cancer Thyroid disease Stroke Social History Substance/Drug Use: never Do you think of yourself as: Straight/Heterosexual Physical Exam Narrative: EXAM NARRATIVE: General: Alert, no acute distress. Skin: Warm, dry. Head: Normocephalic, atraumatic. Neck: Supple, trachea midline. Eye: Extraocular movements are intact. Ears, nose, mouth and throat: mucosa moist. Cardiovascular: Regular, Normal peripheral perfusion. Respiratory: Lungs are clear to auscultation, respirations are non-labored, breath sounds are equal, Symmetrical chest wall expansion. Gastrointestinal: Soft, some rlq ttp, Non distended Musculoskeletal: Normal ROM, no deformity. Neurological: Alert and oriented, No focal neurological deficit observed. Psychiatric: Cooperative, appropriate mood & affect. Course Vital Signs: Vital signs: Vital Signs Temperature 100 F H 12/28/23 14:31 Pulse Rate 80 12/28/23 14:31 Respiratory Rate 14 12/28/23 14:31 Blood Pressure 131/85 12/28/23 14:31 Pulse Oximetry 98 12/28/23 14:31 Oxygen Delivery Me thod Room Air 12/28/23 14:31 MDM - Abdominal Pain Medical Decision Making Medical decision making: Differential diagnosis for this patient with right lower quadrant abdominal pain including but not limited to and based on the above HPI, review of systems and physical exam: Ureterolithiasis. Urinary tract infection. Appendicitis. colitis. small bowel obstruction. Crohn's flare. Pancreatitis. Cholelithiasis or cholecystitis. Hepatitis. Diverticulitis. Constipation. ovarian cyst. ovarian torsion Workup: Orders were placed to evaluate differential diagnosis based on the above differential, HPI and exam: Lab Review: Laboratory results were reviewed and interpreted by myself the emergency room physician. White count is 10. Hemoglobin is 12. BUN and creatinine are five 0.9. All within normal limits. Urine test is negative. Urinalysis does show show a nitrite positive urinary tract infection. I reviewed the patient's medical record Reexamination: Patient remained stable. No increased work of breathing. No altered mental status. No focal motor deficits. We discussed her history. She has had her appendix out in the past. Assessment and plan: UTI -IV Rocephin and IV fluids in the emergency room. - Discharged home - Discussed plan with patient. Answered any questions. - Evaluation and treatment of this problem were appropriate in the emergency setting. Lab Data 12/28/23 15:08 12/28/23 15:08 Labs/Radiology: Laboratory Results WBC 10.12 10^3/uL (3.29-11.43) 12/28/23 15:08 RBC 4.12 10^6/uL (3.85-5.65) 12/28/23 15:08 Hgb 12.40 g/dL (11.27-16.99) 12/28/23 15:08 Hct 37.0 % (36-47) 12/28/23 15:08 MCV 89.8 fl (85-98) 12/28/23 15:08 MCH 30.1 pg (27-33) 12/28/23 15:08 MCHC 33.5 g/dL (30-55) 12/28/23 15:08 RDW 13.3 % (12.1-15.1) 12/28/23 15:08 Plt Count 236 10^3/cmm (157-399) 12/28/23 15:08 MPV 9.9 fL (7.4-10.4) 12/28/23 15:08 Neut % (Auto) 79.9 % 12/28/23 15:08 Lymph % (Auto) 10.2 % 12/28/23 15:08 Sullivan % (Auto) 9.0 % 12/28/23 15:08 Eos % (Auto) 0.2 % 12/28/23 15:08 Baso % (Auto) 0.4 % 12/28/23 15:08 Neut # (Auto) 8.09 10^3/uL (1.8-7.7) H 12/28/23 15:08 Lymph # (Auto) 1.0 10^3/uL (0.8-4.8) 12/28/23 15:08 Sullivan # (Auto) 0.9 10^3/uL (0.2-0.9) 12/28/23 15:08 Eos # (Auto) 0.0 10^3/uL (0.0-0.8) 12/28/23 15:08 Baso # (Auto) 0.0 10^3/uL (0.0-0.1) 12/28/23 15:08 Nucleated RBC % (auto) 0 % 12/28/23 15:08 Nucleated RBCs # 0.0 /100WBC 12/28/23 15:08 Sodium 137 mmol/L (136-145) 12/28/23 15:08 Potassium 3.9 mmol/L (3.5-5.1) 12/28/23 15:08 Chloride 100 mmol/L (98-107) 12/28/23 15:08 Carbon Dioxide 23 mmol/L (22-29) 12/28/23 15:08 Anion Gap 17.9 (5-19) 12/28/23 15:08 BUN 5 mg/dL (6-20) L 12/28/23 15:08 Creatinine 0.9 mg/dL (0.5-0.9) 12/28/23 15:08 GFR Calculation 72.6 mL/min (90-130) L 12/28/23 15:08 Glucose 124 mg/dL (65-115) H 12/28/23 15:08 Calculated Osmolality 283 mOsm/kg (285-295) L 12/28/23 15:08 Calcium 9.4 mg/dL (8.5-10.5) 12/28/23 15:08 Total Bilirubin 0.4 mg/dL (0.15-1.2) 12/28/23 15:08 AST 14 U/L (0-32) 12/28/23 15:08 ALT 13 U/L (0-33) 12/28/23 15:08 Alkaline Phosphatase 67 U/L (35-105) 12/28/23 15:08 Total Protein 8.0 g/dL (6.6-8.7) 12/28/23 15:08 Albumin 4.6 g/dL (3.5-5.2) 12/28/23 15:08 Globulin 3.4 g/dL (1.3-4.6) 12/28/23 15:08 Lipase 24 U/L (13-60) 12/28/23 15:08 HCG, Qual Negative (Negative) 12/28/23 15:08 Urine Color Yellow (Yellow) 12/28/23 14:45 Urine Appearance Slightly cloudy (CLEAR) 12/28/23 14:45 Urine pH 9 (5-7) H 12/28/23 14:45 Ur Specific Calvin 1.015 (1.005-1.030) 12/28/23 14:45 Urine Protein Neg (Negative) 12/28/23 14:45 Urine Glucose (UA) Norm (Normal) 12/28/23 14:45 Urine Ketones Negative (Negative) 12/28/23 14:45 Urine Blood Neg (Negative) 12/28/23 14:45 Urine Nitrate Positive (Negative) A 12/28/23 14:45 Urine Bilirubin Neg (Negative) 12/28/23 14:45 Urine Urobilinogen Norm mg/dL (Negative) 12/28/23 14:45 Ur Leukocyte Esterase Negative (Negative) 12/28/23 14:45 Urine RBC 0-4 /hpf (0-2) H 12/28/23 14:45 Urine WBC 40-55 /hpf (0-5) H 12/28/23 14:45 Ur Squamous Epith Cells 11-20 /hpf (0-5) 12/28/23 14:45 Amorphous Sediment Not Reportable 12/28/23 14:45 Urine Bacteria 3+ /hpf (NONE) H 12/28/23 14:45 No radiology studies performed this visit Discharge Plan Discharge Patient Disposition: Home Clinical Impression: Urinary tract infection Qualifiers: Urinary tract infection type: acute cystitis Hematuria presence: without hematuria Qualified Code(s): N30.00 - Acute cystitis without hematuria Condition: Stable Prescriptions: New cefdinir 300 mg capsule 300 mg PO BID 10 Days Qty: 20 0RF No Action levetiracetam 1,000 mg tablet 500 mg PO BID ondansetron HCl 4 mg tablet 4 mg PO PRN Discharge Orders: Discharge ED (Routine); Ordered 12/28/23 Ordered By: July Bernal Discharge Diet: Usual diet Discharge Activity: Increase activity as tolerated Patient Instructions: Urinary Tract Infection in Women (ED) Activity Restrictions/Additional Instructions: Thank you for choosing [facility] for your healthcare needs today. Please realize this is an emergency room and that we are providing you with a medical screening exam and this may not be complete and all inclusive of all the testing and or work up that you may need to determine your ailment or severity of your illness. You have been screened and evaluated and felt safe for discharge. Health conditions do change or evolve sometimes and as such it is important that you follow up with your Primary Doctor to be re checked, 3-5 days is a general good time frame for follow up. You are always welcome to return to the ED for re assessment if your symptoms are worsening or you have new concerns Coding Level of Care Code ED Percussion Instrument Repairer for Sarah Walsh
[2023-12-28 18:09] VITALS: BP 131/85; PULSE 80; RESP 14; TEMP 37.7; O2SAT 98
== END 2023-12-28 18:13 | disposition home or self-care (01) ==
PROVIDERS: Physician Assistant; Emergency Provider Emergency Medicine
DX: N30.00 Acute cystitis without hematuria (principal)
CPT/HCPCS: 80053; 81001; 83690; 84703; 85025; 96365; 96375; 99284; J0696; J1885; J7030